=== PATIENT | female | born 1965 | race Caucasian/White ===

== ENCOUNTER 2016-06-24 11:02 | Emergency (ER) | payer OTHER ==
[2016-06-24 11:11] VITALS: PULSE 83
--- NOTE | 2016-06-24 12:04 | ED ---
General Adult HPI - General Chief complaint: Extremity Injury, Lower Stated complaint: leg pain Time Seen by Provider: 06/24/16 11:45 Source: patient Mode of arrival: ambulatory Limitations: no limitations - History of Present Illness Initial comments: 50-year-old female complains of right knee pain. She decided to agree any recent injury. She has a history of torn meniscus underwent arthroscopic surgery 2 years ago and is scheduled in July. She states for the last 4 days has been more swollen no fever no chills or painful to walk on. No numbness in the leg otherwise is treated for hypertension and depression. - Related Data Home Medications Medication Instructions Recorded Confirmed DULoxetine HCL [Cymbalta] 60 mg PO DAILY 09/22/15 01/20/16 Ziprasidone [Geodon] 60 mg PO BID 01/19/16 01/20/16 lamoTRIgine [LaMICtal] 150 mg PO BID 01/19/16 01/20/16 Previous Rx's Medication Instructions Recorded Clopidogrel Bisulfate [Plavix] 75 mg PO DAILY #14 tab 03/31/16 Cyclobenzaprine [Flexeril] 10 mg PO TID #14 tab 03/31/16 Hydrocodone/Acetaminophen [[place] 1 each PO Q6HR PRN #20 tab 03/31/16 5-325] predniSONE 20 mg PO BID #10 tab 03/31/16 HYDROcodone/APAP 5-325MG [[place] 1 each PO Q6HR PRN #12 tab 06/24/16 5-325] predniSONE 10 mg PO DAILY #5 tab 06/24/16 Allergies Allergy/AdvReac Type Severity Reaction Status Date / Time aspirin Allergy SEVERE Verified 06/24/16 11:11 BLOODY NOSE" ibuprofen [From Motrin] Allergy Rash/Hives Verified 06/24/16 11:11 ketorolac tromethamine Allergy Rash/Hives Verified 06/24/16 11:11 [From Toradol] tramadol HCl [From Ultram] Allergy Rash/Hives Verified 06/24/16 11:11 Review of Systems ROS Statement: Those systems with pertinent positive or pertinent negative responses have been documented in the HPI. ROS Other: All systems not noted in ROS Statement are negative. Constitutional: Denies: fever, chills Eyes: Denies: eye pain, eye discharge ENT: Denies: ear pain, throat pain Respiratory: Denies: cough Cardiovascular: Denies: chest pain Gastrointestinal: Denies: abdominal pain, nausea, vomiting, diarrhea Genitourinary: Denies: frequency Skin: Denies: rash Neurological: Denies: headache Psychiatric: Denies: anxiety Hematological/Lymphatic: Denies: easy bleeding, easy bruising Past Medical History Past Medical History: COPD, Liver Disease Additional Past Medical History / Comment(s): hepatitis c History of Any Multi-Drug Resistant Organisms: None Reported Past Surgical History: Section, Orthopedic Surgery, Uterine Ablation Additional Past Surgical History / Comment(s): surgery on left ankle, rt knee surgery Past Anesthesia/Blood Transfusion Reactions: No Reported Reaction Past Psychological History: Anxiety, Bipolar, Depression Smoking Status: Current every day smoker Past Alcohol Use History: Occasional Additional Past Alcohol Use History / Comment(s): smokes 1 PPD for 30 yrs Past Drug Use History: None Reported Additional Drug Use History / Comment(s): past use marijuana(1 month ago last use)last use of opiates 4 months ago, denies prescription drug abuse - Past Family History Mother Family Medical History: No Reported History General Exam Limitations: no limitations General appearance: alert, in no apparent distress Head exam: Present: atraumatic Eye exam: Present: normal appearance ENT exam: Present: normal exam, normal oropharynx, mucous membranes moist, TM's normal bilaterally Respiratory exam: Present: normal lung sounds bilaterally Cardiovascular Exam: Present: regular rate, normal heart sounds GI/Abdominal exam: Present: soft Right Knee exam: Present: tenderness, swelling. Absent: deformity, crepitus, effusion Neurological exam: Present: alert, CN II-XII intact Psychiatric exam: Present: normal affect Skin exam: Present: warm, dry Course Vital Signs 06/24/16 11:09 Temperature 97.8 F Pulse Rate 83 Respiratory 20 Rate Blood Pressure 133/84 O2 Sat by Pulse 99 Oximetry Medical Decision Making - Medical Decision Making There is no evidence of infection. Knee is mildly swollen with no warmth. Appears to be an aggravation of her torn meniscus and degenerative arthritis. She's been x-rayed recently. We'll treat with an anti-inflammatory and short course pain medication. Although she is ALLERGIC to tramadol she has taken hydrocodone in the past. Disposition Clinical Impression: Knee meniscus pain Disposition: HOME SELF-CARE Condition: Good Instructions: Knee Pain (ED) Prescriptions: HYDROcodone/APAP 5-325MG [[place] 5-325] 1 each PO Q6HR PRN #12 tab PRN Reason: Pain predniSONE 10 mg PO DAILY #5 tab Time of Disposition: 12:04
[2016-06-24 12:13] VITALS: BP 137/77; RESP 18; TEMP 97.9
== END 2016-06-24 12:10 | disposition home or self-care (01) ==
LOC: EC 11:02
DX: M25.561 Pain in right knee (principal); R22.41 Localized swelling, mass and lump, right lower limb; F31.9 Bipolar disorder, unspecified; F41.9 Anxiety disorder, unspecified; F17.200 Nicotine dependence, unspecified, uncomplicated; Z79.02 Long term (current) use of antithrombotics/antiplatelets; Z79.899 Other long term (current) drug therapy; Z88.5 Allergy status to narcotic agent; Z88.6 Allergy status to analgesic agent; Z86.19 Personal history of other infectious and parasitic diseases
CPT/HCPCS: 99283

== ENCOUNTER 2016-09-05 17:02 | Emergency (ER) | payer OTHER ==
[2016-09-05 18:11] VITALS: BP 175/81; PULSE 67; RESP 17; TEMP 97.5
--- NOTE | 2016-09-05 18:40 | ED ---
Lower Extremity Injury HPI - General Chief Complaint: Extremity Injury, Lower Stated Complaint: Right Knee Pain Time Seen by Provider: 09/05/16 18:21 Source: patient, RN notes reviewed Mode of arrival: ambulatory Limitations: no limitations - History of Present Illness Initial Comments: 50 yo female presents to the Er with cc of right knee pain. Patient has chronic right knee pain. Patient has been having this pain and has seen Dr. Romo who states that she needs to have a knee replacement. Her next appointment is 2 weeks however he will not refill her pain medication because she has not planned for surgery yet. Patient states she is just here for medications to help her with her pain. Patient states that any fever chills. Patient states her pain is exactly to follow-up then. Patient states she has been wearing her splint.Patient denies any recent fever, chills, shortness of breath, chest pain , back pain, abdominal pain, nausea vomiting, numbness or tingling, dysuria or hematuria, constipation or diarrhea, headaches or visual changes, or any other current symptoms. - Related Data Home Medications Medication Instructions Recorded Confirmed DULoxetine HCL [Cymbalta] 60 mg PO DAILY 09/22/15 09/05/16 Ziprasidone [Geodon] 60 mg PO BID 01/19/16 09/05/16 lamoTRIgine [LaMICtal] 150 mg PO BID 01/19/16 09/05/16 Lisinopril [Zestril] 10 mg PO DAILY 09/05/16 09/05/16 Previous Rx's Medication Instructions Recorded Cyclobenzaprine [Flexeril] 10 mg PO TID #14 tab 03/31/16 Hydrocodone/Acetaminophen [[place] 1 each PO Q6HR PRN #20 tab 03/31/16 5-325] HYDROcodone/APAP 5-325MG [[place] 1 each PO Q6HR PRN #12 tab 06/24/16 5-325] Hydrocodone/Acetaminophen [[place] 1 each PO Q6HR PRN #20 tab 09/05/16 5-325] Allergies Allergy/AdvReac Type Severity Reaction Status Date / Time aspirin Allergy SEVERE Verified 09/05/16 18:11 BLOODY NOSE" ibuprofen [From Motrin] Allergy Rash/Hives Verified 09/05/16 18:11 ketorolac tromethamine Allergy Rash/Hives Verified 09/05/16 18:11 [From Toradol] tramadol HCl [From Ultram] Allergy Rash/Hives Verified 09/05/16 18:11 Review of Systems ROS Statement: Those systems with pertinent positive or pertinent negative responses have been documented in the HPI. ROS Other: All systems not noted in ROS Statement are negative. Past Medical History Past Medical History: COPD, Liver Disease Additional Past Medical History / Comment(s): hepatitis c, CHRONIC PAIN History of Any Multi-Drug Resistant Organisms: None Reported Past Surgical History: Section, Orthopedic Surgery, Uterine Ablation Additional Past Surgical History / Comment(s): surgery on left ankle, rt knee surgery Past Anesthesia/Blood Transfusion Reactions: No Reported Reaction Past Psychological History: Anxiety, Bipolar, Depression Smoking Status: Current every day smoker Past Alcohol Use History: Occasional Additional Past Alcohol Use History / Comment(s): smokes 1 PPD for 30 yrs Past Drug Use History: None Reported Additional Drug Use History / Comment(s): past use marijuana(1 month ago last use)last use of opiates 4 months ago, denies prescription drug abuse - Past Family History Mother Family Medical History: No Reported History General Exam - General Exam Comments Initial Comments: General: The patient is awake and alert, in no distress, and does not appear acutely ill. Neck: The neck is supple, there is no tenderness. Cardiovascular: There is a regular rate and rhythm. No murmur, rub or gallop is appreciated. Respiratory: Lungs are clear to auscultation, respirations are non-labored, breath sounds are equal. No wheezes, stridor, rales, or rhonchi. Musculoskeletal: Sensation intact with 2+ pulses to the right lower extremity. Full range of motion of right ankle right knee and right hip. Patient does have some tenderness patient to the patella. Neurological: CN II-XII intact, There are no obvious motor or sensory deficits. Coordination appears grossly intact. Speech is normal. Skin: Skin is warm and dry and no rashes or lesions are noted. Psychiatric: Normal mood and affect. Limitations: no limitations Course Vital Signs 09/05/16 18:08 Temperature 97.5 F L Pulse Rate 67 Respiratory 17 Rate Blood Pressure 175/81 O2 Sat by Pulse 96 Oximetry Medical Decision Making - Medical Decision Making 50-year-old female presents to emergency room chief complaint of right knee pain. At this time she does have chronic pain. We'll give her a small prescription for pain medication we discussed follow-up with her orthopedic doctor. We discussed return parameters and all the patient's questions. She stated that she understood all her questions have been answered. Distended patient will be discharged home. Disposition Clinical Impression: Chronic pain of right knee Disposition: HOME SELF-CARE Condition: Stable Instructions: Knee Pain (ED) Additional Instructions: Please use medication as discussed. Please follow up with family doctor if symptoms have not improved over the next two days. Please return to the emergency room if your symptoms increase or worsen or for any other concerns. Prescriptions: Hydrocodone/Acetaminophen [[place] 5-325] 1 each PO Q6HR PRN #20 tab PRN Reason: Pain Referrals: Alma Merchant MD [Primary Care Provider] - 1-2 days Time of Disposition: 18:40
== END 2016-09-05 18:49 | disposition home or self-care (01) ==
LOC: EC 17:02
DX: G89.29 Other chronic pain (principal); M25.561 Pain in right knee; F31.9 Bipolar disorder, unspecified; F41.9 Anxiety disorder, unspecified; F17.200 Nicotine dependence, unspecified, uncomplicated; Z79.899 Other long term (current) drug therapy; Z88.6 Allergy status to analgesic agent
CPT/HCPCS: 99283

== ENCOUNTER 2016-09-11 20:42 | Emergency (ER) | payer OTHER ==
[2016-09-11] MEDS ORDERED: SODIUM CHLORIDE 0.9% 500 ML IV STA (20:54)
[2016-09-11 20:58] VITALS: RESP 18
--- NOTE | 2016-09-11 21:06 | ED ---
Overdose HPI - General Chief Complaint: Overdose Stated Complaint: OVERDOSE Time Seen by Provider: 09/11/16 20:46 Source: EMS, RN notes reviewed Mode of arrival: EMS Limitations: no limitations - History of Present Illness Initial Comments: 50 yo female presents to the ER with cc of overdose. Patient states that tonight she wanted to get high so she took heroin. Patient states that since she remembers is waking up in the ambulance. Patient did hit her head on a pop when she fell according to EMS report. She was given Narcan. Patient states this is not attempt to hurt herself she denies any suicidal or homicidal ideation. Patient denies any pain at this time. Patient states that she is feeling better. Patient denies using any other substances besides heroin. Patient denies any recent fever, chills, shortness of breath, chest pain, back pain, abdominal pain, nausea vomiting, numbness or tingling, dysuria or hematuria, constipation or diarrhea, headaches or visual changes, or any other current symptoms. - Related Data Home Medications Medication Instructions Recorded Confirmed DULoxetine HCL [Cymbalta] 60 mg PO DAILY 09/22/15 09/11/16 Ziprasidone [Geodon] 60 mg PO BID 01/19/16 09/11/16 lamoTRIgine [LaMICtal] 150 mg PO DAILY 01/19/16 09/11/16 Hydrocodone/Acetaminophen [[place] 1 tab PO Q6HR PRN 09/11/16 09/11/16 5-325] Valtrex (Unknown Dose) 1 tab PO DAILY 09/11/16 09/11/16 Allergies Allergy/AdvReac Type Severity Reaction Status Date / Time aspirin Allergy SEVERE Verified 09/11/16 21:06 BLOODY NOSE" ibuprofen [From Motrin] Allergy Rash/Hives Verified 09/11/16 21:06 ketorolac tromethamine Allergy Rash/Hives Verified 09/11/16 21:06 [From Toradol] tramadol HCl [From Ultram] Allergy Rash/Hives Verified 09/11/16 21:06 Review of Systems ROS Statement: Those systems with pertinent positive or pertinent negative responses have been documented in the HPI. ROS Other: All systems not noted in ROS Statement are negative. Past Medical History Past Medical History: COPD, Liver Disease Additional Past Medical History / Comment(s): hepatitis c, CHRONIC PAIN History of Any Multi-Drug Resistant Organisms: None Reported Past Surgical History: Section, Orthopedic Surgery, Uterine Ablation Additional Past Surgical History / Comment(s): surgery on left ankle, rt knee surgery Past Anesthesia/Blood Transfusion Reactions: No Reported Reaction Past Psychological History: Anxiety, Bipolar, Depression Smoking Status: Current every day smoker Past Alcohol Use History: Occasional Additional Past Alcohol Use History / Comment(s): smokes 1 PPD for 30 yrs Past Drug Use History: Heroin Additional Drug Use History / Comment(s): past use marijuana(1 month ago last use)last use of opiates 4 months ago, denies prescription drug abuse - Past Family History Mother Family Medical History: No Reported History General Exam - General Exam Comments Initial Comments: General: The patient is awake and alert, in no distress, and does not appear acutely ill. Head: Patient has superficial abrasion to the right side of the cheek. Eye: Pupils are equal, round and reactive to light, extra-ocular movements are intact; there is normal conjunctiva bilaterally. No signs of icterus. Ears, nose, mouth and throat: There are moist mucous membranes and no oral lesions. Neck: The neck is supple, there is no tenderness. Cardiovascular: There is a regular rate and rhythm. No murmur, rub or gallop is appreciated. Respiratory: Lungs are clear to auscultation, respirations are non-labored, breath sounds are equal. No wheezes, stridor, rales, or rhonchi. Gastrointestinal: Soft, non-distended, non-tender abdomen without masses or organomegaly noted. There is no rebound or guarding present. No CVA tenderness. Bowel sounds are unremarkable. Back: There is no tenderness to palpation in the midline. There is no obvious deformity. No rashes noted. Musculoskeletal: Normal ROM, no tenderness, There is no pedal edema. There is no calf tenderness or swelling. Sensation intact. Pulses equal bilaterally 2+. Neurological: CN II-XII intact, There are no obvious motor or sensory deficits. Coordination appears grossly intact. Speech is normal. Skin: Skin is warm and dry and no rashes or lesions are noted. Psychiatric: Cooperative, appropriate mood & affect, normal judgment. Limitations: no limitations Course Vital Signs 09/11/16 20:49 Temperature 97.2 F L Pulse Rate 111 H Respiratory 18 Rate Blood Pressure 151/99 O2 Sat by Pulse 98 Oximetry Medical Decision Making - Medical Decision Making 50-year-old female presents emergency Department chief complaint of heroin accidental overdose and fall. At this time patient's laboratory is reviewed and negative. Patient is alert and oriented the room. This time she'll be discharged home. We did give her education about the patient's abuse. We discussed return parameters and follow-up. Patient stated that she understood all cushions have answered. She will be discharged. - Lab Data Result diagrams: 09/11/16 21:30 09/11/16 21:30 Lab Results 09/11/16 09/11/16 Range/Units 21:30 21:30 WBC 14.4 H (3.8-10.6) k/uL RBC 5.80 H (3.80-5.40) m/uL Hgb 16.9 H (11.4-16.0) gm/dL Hct 52.3 H (34.0-46.0) % MCV 90.1 (80.0-100.0) fL MCH 29.2 (25.0-35.0) pg MCHC 32.4 (31.0-37.0) g/dL RDW 14.2 (11.5-15.5) % Plt Count 247 (150-450) k/uL Neutrophils % 76 % Lymphocytes % 18 % Monocytes % 3 % Eosinophils % 1 % Basophils % 0 % Neutrophils # 10.9 H (1.3-7.7) k/uL Lymphocytes # 2.6 (1.0-4.8) k/uL Monocytes # 0.4 (0-1.0) k/uL Eosinophils # 0.1 (0-0.7) k/uL Basophils # 0.1 (0-0.2) k/uL Manual Slide Review Performed Sodium 141 (137-145) mmol/L Potassium 3.9 (3.5-5.1) mmol/L Chloride 106 (98-107) mmol/L Carbon Dioxide 20 L (22-30) mmol/L Anion Gap 15 mmol/L BUN 9 (7-17) mg/dL Creatinine 0.88 (0.52-1.04) mg/dL Est GFR (MDRD) Af Amer >60 (>60 ml/min/1.73 sqM) Est GFR (MDRD) Non-Af >60 (>60 ml/min/1.73 sqM) Glucose 104 H (74-99) mg/dL Calcium 10.3 H (8.4-10.2) mg/dL Total Bilirubin 0.8 (0.2-1.3) mg/dL AST 107 H (14-36) U/L ALT 89 H (9-52) U/L Alkaline Phosphatase 94 (38-126) U/L Total Protein 9.0 H (6.3-8.2) g/dL Albumin 4.9 (3.5-5.0) g/dL Salicylates <1.0 mg/dL Acetaminophen <10.0 ug/mL Serum Alcohol <10 mg/dL - Radiology Data Radiology results: report reviewed, image reviewed Disposition Clinical Impression: Accidental drug overdose Disposition: HOME SELF-CARE Condition: Stable Instructions: Polysubstance Abuse (ED) Additional Instructions: Please use medication as discussed. Please follow up with family doctor if symptoms have not improved over the next two days. Please return to the emergency room if your symptoms increase or worsen or for any other concerns. Referrals: Alma Merchant MD [Primary Care Provider] - 1-2 days Time of Disposition: 23:07
--- NOTE | 2016-09-11 21:21 | CT ---
EXAMINATION TYPE: CT brain wo con DATE OF EXAM: 09/11/2016 9:15 PM COMPARISON: 03/31/2016 HISTORY: Overdose. CT DLP: 927.4 mGycm Automated exposure control for dose reduction was used. FINDINGS: Ventricles and sulci appear normal. There is no mass effect nor midline shift. There is no sign of in tracranial hemorrhage. The calvarium is intact. IMPRESSION: Normal unenhanced head CT scan. No change.
[2016-09-11 21:42] LABS: Basophils # (A) 0.1 k/uL (0-0.2); Basophils % (A) 0 %; CH 28.7; Eosinophils # (A) 0.1 k/uL (0-0.7); Eosinophils % (A) 1 %; HCT 52.3 % (34.0-46.0); HDW 2.14; HGB 16.9 gm/dL (11.4-16.0); Luc # (Auto) 0.24; Luc % (Auto) 2; Lymphocytes # (A) 2.6 k/uL (1.0-4.8); Lymphocytes % (A) 18 %; MCH 29.2 pg (25.0-35.0); MCHC 32.4 g/dL (31.0-37.0); MCV 90.1 fL (80.0-100.0); Mean Platelet Volume 7.1; Monocytes # (A) 0.4 k/uL (0-1.0); Monocytes % (A) 3 %; Neutrophils # (A) 10.9 k/uL (1.3-7.7); Neutrophils % (A) 76 %; RDW 14.2 % (11.5-15.5); WBC 14.4 k/uL (3.8-10.6); WBC (Perox) 16.09
[2016-09-11 21:53] LABS: ALT 89 U/L (9-52); AST 107 U/L (14-36); Acetaminophen <10.0 ug/mL; Alkaline Phosphatase 94 U/L (38-126); Anion Gap 15 mmol/L; Blood Urea Nitrogen 9 mg/dL (7-17); Calcium 10.3 mg/dL (8.4-10.2); Carbon Dioxide 20 mmol/L (22-30); Chloride 106 mmol/L (98-107); Glucose 104 mg/dL (74-99); Non-African American GFR(MDRD) >60 (>60 ml/min/1.73 sqM); Potassium 3.9 mmol/L (3.5-5.1); Salicylate <1.0 mg/dL; Sodium 141 mmol/L (137-145); Total Bilirubin 0.8 mg/dL (0.2-1.3)
[2016-09-11 21:54] LABS: Alcohol <10 mg/dL
[2016-09-11 22:16] LABS: Manual Review Performed
[2016-09-11 23:24] VITALS: BP 124/81; PULSE 95; TEMP 97
== END 2016-09-11 23:24 | disposition home or self-care (01) ==
LOC: EC 20:42
DX: T40.1X1A Poisoning by heroin, accidental (unintentional), initial encounter (principal); S00.81XA Abrasion of other part of head, initial encounter; F41.9 Anxiety disorder, unspecified; F31.9 Bipolar disorder, unspecified; F17.200 Nicotine dependence, unspecified, uncomplicated; Z79.899 Other long term (current) drug therapy; Z88.6 Allergy status to analgesic agent; W18.00XA Striking against unspecified object with subsequent fall, initial encounter
CPT/HCPCS: 36415; 70450; 80053; 80306; 80320; 83520; 85025; 96360; 99285

== ENCOUNTER 2017-10-07 10:12 | Emergency (ER) | payer OTHER ==
[2017-10-07 10:20] VITALS: BP 149/72; PULSE 85; RESP 17; TEMP 97
--- NOTE | 2017-10-07 11:07 | ED ---
General Adult HPI - General Chief complaint: Dental/Oral Stated complaint: oral infection Time Seen by Provider: 10/07/17 10:29 Source: patient, RN notes reviewed, old records reviewed Mode of arrival: ambulatory Limitations: no limitations - History of Present Illness Initial comments: This is a 51-year-old female the ER for evaluation. Patient states that she feels she has dental infection, information of gums, bad breath, patient does have history of dental disease. Denies any swelling or difficulty swallowing no fevers. No prior treatment, no other complaints - Related Data Home Medications Medication Instructions Recorded Confirmed DULoxetine HCL [Cymbalta] 60 mg PO DAILY 09/22/15 10/07/17 Ziprasidone [Geodon] 60 mg PO BID 01/19/16 10/07/17 lamoTRIgine [LaMICtal] 150 mg PO DAILY 01/19/16 10/07/17 Hydrocodone/Acetaminophen [[place] 1 tab PO Q6HR PRN 09/11/16 10/07/17 5-325] Valtrex (Unknown Dose) 1 tab PO DAILY 09/11/16 10/07/17 Previous Rx's Medication Instructions Recorded Penicillin V Potassium [Pen Vee K] 500 mg PO QID #40 tablet 10/07/17 Allergies Allergy/AdvReac Type Severity Reaction Status Date / Time aspirin Allergy SEVERE Verified 10/07/17 10:17 BLOODY NOSE" ibuprofen [From Motrin] Allergy Rash/Hives Verified 10/07/17 10:17 ketorolac tromethamine Allergy Rash/Hives Verified 10/07/17 10:17 [From Toradol] tramadol HCl [From Ultram] Allergy Rash/Hives Verified 10/07/17 10:17 Review of Systems ROS Statement: Those systems with pertinent positive or pertinent negative responses have been documented in the HPI. ROS Other: All systems not noted in ROS Statement are negative. Past Medical History Past Medical History: COPD, Liver Disease Additional Past Medical History / Comment(s): hepatitis c, CHRONIC PAIN History of Any Multi-Drug Resistant Organisms: None Reported Past Surgical History: Section, Orthopedic Surgery, Uterine Ablation Additional Past Surgical History / Comment(s): surgery on left ankle, rt knee surgery Past Anesthesia/Blood Transfusion Reactions: No Reported Reaction Past Psychological History: Anxiety, Bipolar, Depression Smoking Status: Current every day smoker Past Alcohol Use History: Occasional Past Drug Use History: Heroin - Past Family History Mother Family Medical History: No Reported History General Exam Limitations: no limitations General appearance: alert, in no apparent distress Head exam: Present: atraumatic, normocephalic, normal inspection Eye exam: Present: normal appearance, PERRL, EOMI. Absent: scleral icterus, conjunctival injection, periorbital swelling ENT exam: Present: normal exam, mucous membranes moist, other (Positive dental caries) Neck exam: Present: normal inspection. Absent: tenderness, meningismus, lymphadenopathy Respiratory exam: Present: normal lung sounds bilaterally. Absent: respiratory distress, wheezes, rales, rhonchi, stridor Cardiovascular Exam: Present: regular rate, normal rhythm, normal heart sounds. Absent: systolic murmur, diastolic murmur, rubs, gallop, clicks GI/Abdominal exam: Present: soft, normal bowel sounds. Absent: distended, tenderness, guarding, rebound, rigid Extremities exam: Present: normal inspection, full ROM, normal capillary refill. Absent: tenderness, pedal edema, joint swelling, calf tenderness Back exam: Present: normal inspection Neurological exam: Present: alert, oriented X3, CN II-XII intact Psychiatric exam: Present: normal affect, normal mood Skin exam: Present: warm, dry, intact, normal color. Absent: rash Course Vital Signs 10/07/17 10:17 Temperature 97.0 F L Pulse Rate 85 Respiratory 17 Rate Blood Pressure 149/72 O2 Sat by Pulse 98 Oximetry Medical Decision Making - Medical Decision Making 51 female the ER for evaluation of dental caries, dental disease. Patient has had gingivitis, will place on antibiotics encouraged to increase hydration and tooth care. Patient can be discharged home Disposition Clinical Impression: Gingivitis, Pain, dental Disposition: HOME SELF-CARE Condition: Good Instructions: Gingivitis (ED) Prescriptions: Penicillin V Potassium [Pen Vee K] 500 mg PO QID #40 tablet Is patient prescribed a controlled substance at d/c from ED?: No Referrals: Vero Pat MD [Primary Care Provider] - 1-2 days
== END 2017-10-07 11:15 | disposition home or self-care (01) ==
LOC: EC 10:12
DX: K05.10 Chronic gingivitis, plaque induced (principal); K02.9 Dental caries, unspecified; F31.9 Bipolar disorder, unspecified; F41.9 Anxiety disorder, unspecified; F17.200 Nicotine dependence, unspecified, uncomplicated; Z79.899 Other long term (current) drug therapy; Z88.5 Allergy status to narcotic agent; Z88.6 Allergy status to analgesic agent
CPT/HCPCS: 99283

== ENCOUNTER → 2018-01-28 | Outpatient (CLI) | payer OTHER ==
[2018-01-28 14:20] LABS: Basophils % (A) 1 %; Eosinophils # (A) 0.1 k/uL (0-0.7); Eosinophils % (A) 1 %; HCT 43.2 % (34.0-46.0); HGB 13.6 gm/dL (11.4-16.0); Lymphocytes # (A) 2.8 k/uL (1.0-4.8); Lymphocytes % (A) 38 %; MCH 28.2 pg (25.0-35.0); MCHC 31.5 g/dL (31.0-37.0); MCV 89.5 fL (80.0-100.0); Mean Platelet Volume 6.9; Monocytes # (A) 0.3 k/uL (0-1.0); Monocytes % (A) 4 %; Neutrophils % (A) 55 %; Platelet Count 219 k/uL (150-450); RBC 4.82 m/uL (3.80-5.40); WBC 7.3 k/uL (3.8-10.6)
[2018-01-28 14:34] LABS: ALT 27 U/L (9-52); AST 35 U/L (14-36); Anion Gap 7 mmol/L; Blood Urea Nitrogen 11 mg/dL (7-17); Calcium 9.5 mg/dL (8.4-10.2); Carbon Dioxide 26 mmol/L (22-30); Chloride 108 mmol/L (98-107); Glucose 93 mg/dL (74-99); Sodium 141 mmol/L (137-145)
[2018-01-29 13:45] LABS: Hepatits C Virus RNA Not detected (Not detected); Hepatits C Virus RNA, Quant <12 IU/mL (<12); LOG HCV IU/mL <1.08 (<1.08)
== END | disposition home or self-care (01) ==
LOC: LABWHC1 14:04
PROVIDERS: ATTEND Internal Medicine Infectious Disease
DX: B18.2 Chronic viral hepatitis C (principal)
CPT/HCPCS: 36415; 80048; 84450; 84460; 85025; 87522

== ENCOUNTER 2018-02-03 18:55 | Emergency (ER) | payer OTHER ==
[2018-02-03 19:18] VITALS: RESP 18
[2018-02-03] MEDS ORDERED: DIPH,PERTUS(ACELL)TETVAC-LF 0.5 ML VIAL IM ONE (19:21)
[2018-02-03] MEDS ORDERED: LIDOCAINE 1% INJ 10MG/ML (20 ML MDV) SQ ONE (20:10)
--- NOTE | 2018-02-03 20:19 | XR ---
EXAMINATION TYPE: XR foot limited RT DATE OF EXAM: 02/03/2018 CLINICAL HISTORY: Laceration to third digit. TECHNIQUE: Frontal, lateral, and oblique images of the right foot are obtained. COMPARISON: None FINDINGS: There is no acute fracture/dislocation evident in the right foot. The joint spaces appear within normal limits. The overlying soft tissue appears unremarkable. No radiopaque foreign body. IMPRESSION: There is no acute fracture or dislocation. No radiopaque foreign body.
[2018-02-03] MEDS ORDERED: HYDROcodone/APAP 7.5-325MG 1 EACH TAB PO ONE (20:39)
--- NOTE | 2018-02-03 21:26 | ED ---
Wound/Laceration HPI - General Chief Complaint: Wound/Laceration Stated Complaint: toe lac Time Seen by Provider: 02/03/18 19:21 Source: patient, RN notes reviewed Mode of arrival: wheelchair Limitations: no limitations - History of Present Illness Initial Comments: This is a 52yo female with PMH of hepatitis C who presents today for CC of laceration to the right third toe x few hours. Pt states that she was at home and grabbed a can of spaghetti O's (8oz) from the cupboard, when she dropped it on the tip of her third toe on the right foot. Pt applied a rag and pressure. She ate her spaghetti O's and then presented to the emergency department because she knew she needed sutures. Pt denied numbness, tingling, or loss of sensation. Pt states that her tetanus is not up to date. Patient denies any recent fever, chills, shortness of breath, chest pain, back pain, abdominal pain , nausea or vomiting, numbness or tingling, dysuria or hematuria, constipation or diarrhea, headaches or visual changes, or any other complaints. - Related Data Home Medications Medication Instructions Recorded Confirmed DULoxetine HCL [Cymbalta] 60 mg PO DAILY 09/22/15 10/07/17 Ziprasidone [Geodon] 60 mg PO BID 01/19/16 10/07/17 lamoTRIgine [LaMICtal] 150 mg PO DAILY 01/19/16 10/07/17 Hydrocodone/Acetaminophen [Porter 1 tab PO Q6HR PRN 09/11/16 10/07/17 5-325] Valtrex (Unknown Dose) 1 tab PO DAILY 09/11/16 10/07/17 Previous Rx's Medication Instructions Recorded Penicillin V Potassium [Pen Vee K] 500 mg PO QID #40 tablet 10/07/17 Acetaminophen Tab [Tylenol Tab] 500 mg PO Q6H PRN 7 Days #28 tablet 02/03/18 Cephalexin [Keflex] 500 mg PO Q8HR 7 Days #21 cap 02/03/18 Sulfamethox-Tmp 800-160Mg [Bactrim 1 tab PO Q12HR 7 Days #14 tab 02/03/18 DS 800-160 mg] Allergies Allergy/AdvReac Type Severity Reaction Status Date / Time aspirin Allergy SEVERE Verified 02/03/18 19:19 BLOODY NOSE" ibuprofen [From Motrin] Allergy Rash/Hives Verified 02/03/18 19:19 ketorolac tromethamine Allergy Rash/Hives Verified 02/03/18 19:19 [From Toradol] tramadol HCl [From Ultram] Allergy Rash/Hives Verified 02/03/18 19:19 Review of Systems ROS Statement: Those systems with pertinent positive or pertinent negative responses have been documented in the HPI. ROS Other: All systems not noted in ROS Statement are negative. Constitutional: Denies: fever, chills Eyes: Denies: eye pain ENT: Denies: ear pain, throat pain Respiratory: Denies: cough, dyspnea Cardiovascular: Denies: chest pain, palpitations Gastrointestinal: Denies: abdominal pain, nausea, vomiting Genitourinary: Denies: urgency, dysuria Musculoskeletal: Denies: back pain Skin: Denies: rash, lesions Neurological: Denies: headache, numbness, paresthesias, confusion Past Medical History Past Medical History: COPD, Liver Disease Additional Past Medical History / Comment(s): , hepatitis cCHRONIC PAIN History of Any Multi-Drug Resistant Organisms: None Reported Past Surgical History: Section, Orthopedic Surgery, Uterine Ablation Additional Past Surgical History / Comment(s): surgery on left ankle, rt knee surgery Past Anesthesia/Blood Transfusion Reactions: No Reported Reaction Past Psychological History: Anxiety, Bipolar, Depression Smoking Status: Current every day smoker Past Alcohol Use History: Occasional Past Drug Use History: Heroin - Past Family History Mother Family Medical History: No Reported History General Exam - General Exam Comments Initial Comments: General: The patient is awake and alert, in no distress, and does not appear acutely ill. Eye: Pupils are equal, round and reactive to light, extra-ocular movements are intact. No nystagmus. There is normal conjunctiva bilaterally. No signs of icterus. Ears, nose, mouth and throat: There are moist mucous membranes and no oral lesions. Cardiovascular: There is a regular rate and rhythm. No murmur, rub or gallop is appreciated. Respiratory: Lungs are clear to auscultation, respirations are non-labored, breath sounds are equal. No wheezes, stridor, rales, or rhonchi. Musculoskeletal: Decreased ROM at the DIP joint of the third toe of the right foot. 5/5 strength at the PIP joint, pt was unable to complete strength testing at the DIP joint. Sensation intact of tip of the toes of the feet b/l. +2 DP pulses equal bilaterally 2+. Neurological: A&O x 3. CN II-XII intact, There are no obvious motor or sensory deficits. Coordination appears grossly intact. Speech is normal. Skin: Skin is warm and dry and no rashes. 2cm laceration to the tip of the third toe of the right foot, just prior to the nail bed. No obvious tendon exposure but given depth extensor tendon damage is likely. No exposure of underlying bone evident. Psychiatric: Cooperative, appropriate mood & affect, normal judgment. Limitations: no limitations Course Vital Signs 02/03/18 02/03/18 19:15 21:50 Temperature 98.1 F 98 F Pulse Rate 68 51 L Respiratory 18 18 Rate Blood Pressure 114/65 168/81 O2 Sat by Pulse 97 99 Oximetry Procedures - Laceration Laceration #1 Consent Obtained: verbal consent Time Out Performed: Yes Indication: laceration Site: foot (right third digit) Size (cm): 2 Description: irregular, clean Depth: involves tendon Anesthetic Used: lidocaine 1% Anesthesia Technique: nerve block Amount (mls): 8 Pre-repair: wound explored, irrigated extensively Type of Sutures: nylon Size of Sutures: 5-0 Number of Sutures: 3 Technique: simple, interrupted Patient Tolerated Procedure: well, no complications Medical Decision Making - Medical Decision Making 52 yo female with cc of laceration concerning for tendon injury/ possible fracture. XR obtained due to depth- XR revealed no acute fracture or dislocation noted by radiology. Given depth and examination findings likely extensor tendon injury. Wound was soaked in an iodine/sterile water solution for 5-10 minutes. Digital block performed after iodine cleanse. Irrigated extensively with 1L of sterile water under pressure.Wound explored, no obvious exposure of tendon or bone on exam. Wound was approximated using 3, 5.0 sutures , these were placed by Dr. Bal whom also assessed wound. Pt received Porter 7.5 mg prior to procedure for pain mgmt and a starting dose of bactrim DS and Keflex. At this time we feel pt is stable for discharge with tylenol for pain mgmt as needed, Bactrim DS and Keflex for infection ppx as well as close podiatry and PCP f/u. Pt agreed with plan, pt was given specific instructions for wound care including avoiding pool, lakes, ponds or submerging foot in any form of water during next 7-10 days, as well as keeping the area clean dry, and covered with clean bandage. Pt told to return to the ER in 10 days for suture removal, by both myself and Dr. Bal. Pt stated that she understood, denied any questions at this time. In addition pt was instructed to return to the emergency department for any fever, chills, nightsweats, drainage, increasing pain/tenderness/warmth-pt verbalized understand and was d/c in stable condition. Disposition Clinical Impression: Laceration of toe involving extensor tendon Disposition: HOME SELF-CARE Condition: Good Instructions: Care For Your Stitches (ED), Laceration (ED) Additional Instructions: Please use medication as discussed. Please follow-up with family doctor in the next 2 days for wound check. Please follow-up with podiatry in the next 2-3 days. Please return to emergency room 7-10 days for suture removal, or if the symptoms increase or worsen or for any other concerns, as discussed including drainage, increasing warmth, redness, or tenderness. Prescriptions: Acetaminophen Tab [Tylenol Tab] 500 mg PO Q6H PRN 7 Days #28 tablet PRN Reason: Pain Cephalexin [Keflex] 500 mg PO Q8HR 7 Days #21 cap Sulfamethox-Tmp 800-160Mg [Bactrim DS 800-160 mg] 1 tab PO Q12HR 7 Days #14 tab Is patient prescribed a controlled substance at d/c from ED?: No [facility] - 1-2 days Cristi Freeman DPM [STAFF PHYSICIAN] - 1-2 days Time of Disposition: 21:31
[2018-02-03] MEDS ORDERED: CEPHALEXIN 500 MG CAP PO STA (21:27)
[2018-02-03] MEDS ORDERED: SULFAMETHOX-TMP 800-160MG 1 EACH TAB PO STA (21:27)
[2018-02-03 21:52] VITALS: BP 168/81; PULSE 51; TEMP 98
== END 2018-02-03 21:50 | disposition home or self-care (01) ==
LOC: EC 18:55
DX: S96.121A Laceration of muscle and tendon of long extensor muscle of toe at ankle and foot level, right foot, initial encounter (principal); F41.9 Anxiety disorder, unspecified; F31.9 Bipolar disorder, unspecified; F17.200 Nicotine dependence, unspecified, uncomplicated; Z23 Encounter for immunization; Z98.890 Other specified postprocedural states; Z79.899 Other long term (current) drug therapy; Z88.5 Allergy status to narcotic agent; Z88.6 Allergy status to analgesic agent; W26.8XXA Contact with other sharp object(s), not elsewhere classified, initial encounter
CPT/HCPCS: 73620; 90715; 99283; 12001; 90471; J2001

== ENCOUNTER → 2018-03-18 | Outpatient (CLI) | payer OTHER ==
[2018-03-18 14:53] LABS: ALT 26 U/L (9-52); AST 29 U/L (14-36)
[2018-03-19 14:50] LABS: Hepatits C Virus RNA Not detected (Not detected); Hepatits C Virus RNA, Quant <12 IU/mL (<12); LOG HCV IU/mL <1.08 (<1.08)
== END ==
LOC: LABWHC1 13:30
PROVIDERS: ATTEND Internal Medicine Infectious Disease
DX: B18.2 Chronic viral hepatitis C (principal)
CPT/HCPCS: 36415; 84450; 84460; 87522

== ENCOUNTER 2018-08-01 16:27 | Emergency (ER) | payer OTHER ==
[2018-08-01 16:38] VITALS: RESP 18; TEMP 98.2
--- NOTE | 2018-08-01 17:24 | ED ---
Upper Extremity HPI - General Chief Complaint: Extremity Injury, Upper Stated Complaint: hand & shoulder injury Source: patient Mode of arrival: ambulatory Limitations: no limitations - History of Present Illness Initial Comments: 52 yo female presenting for left index finger laceration. Patient states she slammed her left hand in the department door and had a small laceration to her left index finger, she states she is unsure if it needed suture repair presented for evaluation. Patient states she pulled back so hard in her finger she felt her left shoulder. She denies head or neck injury. Denies loss of consciousness. Patient denies any injury of the lower extremity or back. Patient denies any decreased range of motion left shoulder. She does admit to anterior shoulder pain to palpation and with ROM. Patient denies any numbness, tingling, loss sensation, coolness or pallor of the extremities of the upper or lower extremities. Remaining review of systems negative, patient denies any recent fever, chills, shortness of breath, chest pain, back pain, abdominal pain , nausea or vomiting, numbness or tingling, dysuria or hematuria, constipation or diarrhea, headaches or visual changes, or any other complaints. Pt unsure of last tetanus. - Related Data Home Medications Medication Instructions Recorded Confirmed DULoxetine HCL [Cymbalta] 60 mg PO DAILY 09/22/15 10/07/17 Ziprasidone [Geodon] 60 mg PO BID 01/19/16 10/07/17 lamoTRIgine [LaMICtal] 150 mg PO DAILY 01/19/16 10/07/17 Hydrocodone/Acetaminophen [[place] 1 tab PO Q6HR PRN 09/11/16 10/07/17 5-325] Valtrex (Unknown Dose) 1 tab PO DAILY 09/11/16 10/07/17 Previous Rx's Medication Instructions Recorded Penicillin V Potassium [Pen Vee K] 500 mg PO QID #40 tablet 10/07/17 Acetaminophen Tab [Tylenol Tab] 500 mg PO Q6H PRN 7 Days #28 tablet 02/03/18 Cephalexin [Keflex] 500 mg PO Q8HR 7 Days #21 cap 02/03/18 Sulfamethox-Tmp 800-160Mg [Bactrim 1 tab PO Q12HR 7 Days #14 tab 02/03/18 DS 800-160 mg] Allergies Allergy/AdvReac Type Severity Reaction Status Date / Time aspirin Allergy SEVERE Verified 08/01/18 16:35 BLOODY NOSE" ibuprofen [From Motrin] Allergy Rash/Hives Verified 08/01/18 16:35 ketorolac tromethamine Allergy Rash/Hives Verified 08/01/18 16:35 [From Toradol] tramadol HCl [From Ultram] Allergy Rash/Hives Verified 08/01/18 16:35 Review of Systems ROS Statement: Those systems with pertinent positive or pertinent negative responses have been documented in the HPI. ROS Other: All systems not noted in ROS Statement are negative. Past Medical History Past Medical History: COPD, Liver Disease Additional Past Medical History / Comment(s): , hepatitis cCHRONIC PAIN History of Any Multi-Drug Resistant Organisms: None Reported Past Surgical History: Section, Orthopedic Surgery, Uterine Ablation Additional Past Surgical History / Comment(s): surgery on left ankle, rt knee surgery Past Anesthesia/Blood Transfusion Reactions: No Reported Reaction Past Psychological History: Anxiety, Bipolar, Depression Smoking Status: Current every day smoker Past Alcohol Use History: Occasional Past Drug Use History: Heroin, Marijuana - Past Family History Mother Family Medical History: No Reported History General Exam - General Exam Comments Initial Comments: General: The patient is awake and alert, in no distress, and does not appear acutely ill. Eye: +3 mm pupils are equal, round and reactive to light, extra-ocular movements are intact. No nystagmus. There is normal conjunctiva bilaterally. No signs of icterus. Ears, nose, mouth and throat: There are moist mucous membranes and no oral lesions. Neck: The neck is supple, there is no tenderness or JVD. No midline tenderness to palpation of the cervical spine. Full range of motion of the cervical spine. Cardiovascular: There is a regular rate and rhythm. No murmur, rub or gallop is appreciated. Respiratory: Lungs are clear to auscultation, respirations are non-labored, breath sounds are equal. No wheezes, stridor, rales, or rhonchi. Gastrointestinal: Soft, non-distended, non-tender abdomen without masses or organomegaly noted. There is no rebound or guarding present. Musculoskeletal: Positive action the hands bilaterally there is small soft tissue laceration superficial of the left index figure. No other deformities. No gross deformities of the shoulders. Appear equal length inspection, no contusions or ecchymosis. Strength 5/5 of the MTP DIP and PIP joints of the hands equal comparison bilaterally with isolated joint testing. Full range of motion of the left shoulder equal comparison the right. Patient does admit to anterior discomfort with range of motion of the left shoulder. Anterior pain with palpation of the left shoulder. No patch paresthesia. Sensation of the upper extremities equal comparison bilaterally. Patient is able to make the okay fingers crossed thumbs-up and finger opposition of the right and left hands -ulnar median and radial nerve appear intact.Radial pulses equal bilaterally 2+ . Neurological: A&O x 3. CN II-XII intact, There are no obvious motor or sensory deficits. Coordination appears grossly intact. Speech is normal. Skin: Skin is warm and dry and no rashes or lesions are noted. <1cm laceration superifical of the left index finger. just proximal to the DIP joint. Psychiatric: Cooperative, appropriate mood & affect, normal judgment. Limitations: no limitations Course Vital Signs 08/01/18 08/01/18 16:35 19:05 Temperature 98.2 F Pulse Rate 92 68 Respiratory 18 18 Rate Blood Pressure 160/103 135/84 O2 Sat by Pulse 96 97 Oximetry Medical Decision Making - Medical Decision Making Well-appearing 52-year-old female. Laceration was repaired using exofin as it was superifical in a non high tension area after cleansing with iodine and irrigating thoroughly. X-ray negative for acute osseous process. Normal muscle and range of motion testing of the hands bilaterally no suspicion for tendon injury. X-ray of the shoulder revealed no acute osseous injury. Patient was able to fully range without difficulty. Patient is neurovascularly intact. Tetanus was updated. Patient is not a diabetic. At this time i feel pt is stable for discharge with out patient f/u. Return parameters were discussed at length with patient who verbalizes understanding. Patient discharged. While denies questions at this time. Disposition Clinical Impression: Finger laceration, Shoulder pain Disposition: HOME SELF-CARE Condition: Good Instructions (If sedation given, give patient instructions): Shoulder Sprain ( ED), Skin Adhesive Care (ED) Additional Instructions: Please use medication as discussed. Please follow-up with family doctor in the next 2 days. Please return to emergency room if the symptoms increase or worsen or for any other concerns. Is patient prescribed a controlled substance at d/c from ED?: No [facility] - [facility]-2 days Time of Disposition: 18:51
--- NOTE | 2018-08-01 17:48 | XR ---
Left shoulder 3 views. History pain. Comparison none. FINDINGS: I see no fracture nor dislocation. Joint spaces are normal. There are no pathologic calcifications. IMPRESSION: Negative left shoulder exam.
--- NOTE | 2018-08-01 17:49 | XR ---
Left hand 3 views. History pain. Trauma. Comparison none. FINDINGS: I see no fracture nor dislocation. Metacarpals are intact. Joint spaces are fairly normal. IMPRESSION: Negative left hand exam.
[2018-08-01] MEDS ORDERED: DIPH,PERTUS(ACELL)TETVAC-LF 0.5 ML VIAL IM ONE (17:50)
[2018-08-01] MEDS ORDERED: HYDROcodone/APAP 5-325MG 1 EACH TAB PO STA (18:27)
[2018-08-01] MEDS ORDERED: LIDOCAINE 1% INJ 10MG/ML (20 ML MDV) SQ ONE (18:29)
[2018-08-01] MEDS ORDERED: TOPICAL SKIN ADHESIVE 1 EACH AMP TOPICAL ONE (18:38)
[2018-08-01 19:06] VITALS: BP 135/84; PULSE 68
== END 2018-08-01 19:12 | disposition home or self-care (01) ==
LOC: EC 16:27
DX: S61.211A Laceration without foreign body of left index finger without damage to nail, initial encounter (principal); M25.512 Pain in left shoulder; F31.9 Bipolar disorder, unspecified; F41.9 Anxiety disorder, unspecified; F17.200 Nicotine dependence, unspecified, uncomplicated; Z23 Encounter for immunization; Z86.19 Personal history of other infectious and parasitic diseases; Z79.899 Other long term (current) drug therapy; Z88.5 Allergy status to narcotic agent; Z88.6 Allergy status to analgesic agent; W23.0XXA Caught, crushed, jammed, or pinched between moving objects, initial encounter; W19.XXXA Unspecified fall, initial encounter
CPT/HCPCS: 12001; 90471; 90715; 99283

== ENCOUNTER 2019-05-29 10:29 | Emergency (ER) | payer OTHER ==
[2019-05-29 10:32] VITALS: TEMP 97.7
[2019-05-29] MEDS ORDERED: MORPHINE SULFATE 4 MG/ML SYRINGE IVP STA (11:02)
[2019-05-29] MEDS ORDERED: SODIUM CHLORIDE 0.9% 1,000 ML IV ONE (11:02)
--- NOTE | 2019-05-29 11:15 | ED ---
Headache HPI - General Chief Complaint: Headache Stated Complaint: Headache, back pain Time Seen by Provider: 05/29/19 10:47 Mode of arrival: ambulatory Limitations: no limitations - History of Present Illness Initial Comments: 53-year-old female presenting to the emergency department today for headache patient has history of cervical spine degeneration, headaches, chronic low back pain patient is currently out of her medication of [place] with refill tomorrow. In addition patient has history of cocaine abuse with last use last night. Patient states that she has had headache on and off for the past 2 weeks. She states that has been subsided for the past few days however returned this morning at 8:30 she states it came on gradually and is episodic with a sharp stabbing pain in the left side the head without radiation 01/18. Patient states she recently within the last 3 months had a complete neurological evaluation by her Dr. Orosco-including MRI and from patient description MRA, denies aneursym. Denies sudden onset of RODRIGUEZ, photophobia, or new neck pain, neck stiffness, Patient states she has chronic low back pain that she takes norco for. Patient states she has only had increased low back pain since she ran out yesterday. denies trauma or falls to head or back denies any loss of bowel bladder control urinary retention fever or IV drug us, hx of cancer. Patient denies dizziness, balances changes, speech changes, weakness of the UE, states she has chronic leg leg weakness (from back)without change todaym denies sensation deficits or memory change. On arrival patient appears well. patient also may note that she was diagnosed with hypertension and prescribed verapamil for treatment. She states that today when she took her first dose of verapamil she developed a rash on her chest that has been going away. - Related Data Home Medications Medication Instructions Recorded Confirmed lamoTRIgine [LaMICtal] 150 mg PO BID 01/19/16 05/29/19 Albuterol Sulfate [Ventolin HFA] 1 - 2 puff INHALATION RT-Q6H PRN 05/29/19 05/29/19 Aspirin EC [Ecotrin Low Dose] 81 mg PO DAILY 05/29/19 05/29/19 Hydrocodone/Acetaminophen [[place] 1 tab PO Q8H PRN 05/29/19 05/29/19 10-325] Levofloxacin [Levaquin] 500 mg PO DAILY 05/29/19 05/29/19 Lisinopril 20 mg PO DAILY 05/29/19 05/29/19 Loratadine [Claritin] 10 mg PO DAILY 05/29/19 05/29/19 Verapamil HCl [Verapamil ER] 120 mg PO DAILY 05/29/19 05/29/19 traZODone HCL [Desyrel] 100 mg PO HS PRN 05/29/19 05/29/19 Allergies Allergy/AdvReac Type Severity Reaction Status Date / Time ketorolac tromethamine Allergy Rash/Hives Verified 05/29/19 11:23 [From Toradol] tramadol HCl [From Ultram] Allergy Rash/Hives Verified 05/29/19 11:23 Review of Systems ROS Statement: Those systems with pertinent positive or pertinent negative responses have been documented in the HPI. ROS Other: All systems not noted in ROS Statement are negative. Past Medical History Past Medical History: COPD, Liver Disease Additional Past Medical History / Comment(s): , hepatitis cCHRONIC PAIN History of Any Multi-Drug Resistant Organisms: None Reported Past Surgical History: Section, Orthopedic Surgery, Uterine Ablation Additional Past Surgical History / Comment(s): surgery on left ankle, rt knee surgery Past Anesthesia/Blood Transfusion Reactions: No Reported Reaction Past Psychological History: Anxiety, Bipolar, Depression Smoking Status: Current every day smoker Past Alcohol Use History: Occasional Past Drug Use History: Heroin, Marijuana - Past Family History Mother Family Medical History: No Reported History General Exam - General Exam Comments Initial Comments: General: The patient is awake and alert, in no distress, and does not appear acutely ill. Eye: +3 mm pupils are equal, round and reactive to light, extra-ocular movements are intact. No nystagmus. There is normal conjunctiva bilaterally. No signs of icterus. Ears, nose, mouth and throat: There are moist mucous membranes and no oral lesions. Neck: The neck is supple, there is no tenderness or JVD. Cardiovascular: There is a regular rate and rhythm. No murmur, rub or gallop is appreciated. Respiratory: Lungs are clear to auscultation, respirations are non-labored, breath sounds are equal. No wheezes, stridor, rales, or rhonchi. Musculoskeletal: normal inspection of cervicothoracic and lumbar spine. No midline tenderness to palpation however there is right low paravertebral lumbar tenderness. No skin changes.Normal ROM, no tenderness. Strength 5/5. Sensation intact. Pulses equal bilaterally 2+. Neurological: A&O x 3. CN II-XII intact, memory intact to immediately, intermediate and correction recall. Able to follow simple verbal. Able to name a common object (pen). High quality, labial (pa) and lingual (la) speech. Low quality posterior pharynx/larynx (ga) voice sounds. Able to express general k nowledge (days in a week). No hemineglect or inattention noted. Finger agnosia (-) and spatially oriented. Light touch and temperature sensation present over the face, chest, abdomen, back, UE bilaterally, and LE bilaterally. Able to localize point during point localization b/l and extinction. No visible bulk atrophy, hypertrophy, fasciculations, or myoclonus of the UE or LE b/l. Full PROM in UE and LE b/l. Bilateral muscle strength 5/5 for the following muscles: deltoid, biceps, triceps, brachioradialis, wrist extensors/flexor, hip flexor, hip abductors/adductors, hamstrings, quadriceps, feet dorsiflexors/plantar flexors. Finger to nose, finger to the examiners finger, and heel to arizmendi coordinated and accurate b/l. Coordinated and even demonstration of hand flip, finger to thumb, and toe tap b/l. Gait is coordinated and even in stride with tandem, toe and heel walk. Maintains balance with monopedal stance. (-) Romberg. (-) pronator drift. No nuchal rigidity. Skin: Skin is warm and dry and no rashes or lesions are noted. Psychiatric: Cooperative, appropriate mood & affect, normal judgment. Limitations: no limitations Course Vital Signs 05/29/19 05/29/19 10:30 12:01 Temperature 97.7 F Pulse Rate 89 75 Respiratory 20 16 Rate Blood Pressure 174/105 145/85 O2 Sat by Pulse 97 98 Oximetry Medical Decision Making - Medical Decision Making very well-appearing 53 female presenting for multiple complaints (main being RODRIGUEZ). no focal neurological deficits onset denies sudden onset of headache this being the worst headache of her life. No neck pain. patient is no midline lumbar pain right-sided paravertebral. No signs of cauda equina. Patient is afebrile well-appearing does not appear in distress. Patient is currently out of pain medications and does abuse cocaine. Denies any chest pain shortness of breath. Patient's CT revealed no change. Patient's symptoms controlled to 1 dose of IV medication. Patient given IV fluids instructed to discontinue use of cocaine as well as verapamil given history of rash after use. Patient is to call prescriber of HTN medication today for new prescription. Patient BP within acceptable limits after pain control. Patient case discussed with attending who is agreeable with outpatient neurological evaluation and f/u. Disposition Clinical Impression: Headache, Cocaine abuse, Chronic low back pain Disposition: HOME SELF-CARE Condition: Good Instructions (If sedation given, give patient instructions): Cocaine Abuse (ED), Acute Headache (ED) Additional Instructions: Please use medication as discussed. Please follow-up with neurologist in the next 1-2 days. Call today to speak with them in regards to visit today--including reaction to verapamil (discontinue medication-but will need new blood pressure medication). Please stop use of cocaine, take prescribed medications as directed. Please return to emergency room if the symptoms increase or worsen or for any other concerns-worsening RODRIGUEZ, return of RODRIGUEZ. Is patient prescribed a controlled substance at d/c from ED?: No [facility] [Primary Care Provider] - 1-2 days Vira Orosco MD [Medical Doctor] - 1-2 days Time of Disposition: 11:59
--- NOTE | 2019-05-29 11:21 | CT ---
EXAMINATION TYPE: CT brain wo con DATE OF EXAM: 05/29/2019 HISTORY: Headache. Sharp stabbing acute onset. CT DLP: 1082.4 mGycm. Automated Exposure Control for Dose Reduction was Utilized. TECHNIQUE: CT scan of the head is performed without contrast. COMPARISON: Prior CT brain September 11, 2016. FINDINGS: There is no acute intracranial hemorrhage or midline shift identified. Samson-white matter differentiation is maintained. Mild bilateral symmetric frontal lobe atrophy there is redemonstrated. No hydrocephalus. Persistent slight low-lying cerebellar tonsils without greater than 5 mm inferior descent to suggest Chiari type I malformation. The globes are intact and the visualized sinuses are c lear. IMPRESSION: No acute intracranial hemorrhage or midline shift. No significant change from prior stud y.
[2019-05-29] MEDS ORDERED: ACET/COD 300 MG/30 MG STARTER PACK 6 TAB BTL PO STA (12:00)
[2019-05-29 12:02] VITALS: BP 145/85; PULSE 75; RESP 16
== END 2019-05-29 12:09 | disposition home or self-care (01) ==
LOC: EC 10:29
DX: F14.10 Cocaine abuse, uncomplicated (principal); G89.29 Other chronic pain; M54.5 Low back pain; R51 Headache; J44.9 Chronic obstructive pulmonary disease, unspecified; F41.9 Anxiety disorder, unspecified; F31.9 Bipolar disorder, unspecified; F17.200 Nicotine dependence, unspecified, uncomplicated; Z79.82 Long term (current) use of aspirin; Z79.899 Other long term (current) drug therapy; Z88.5 Allergy status to narcotic agent; Z88.6 Allergy status to analgesic agent
CPT/HCPCS: 70450; 96361; 96374; 99284

== ENCOUNTER 2019-07-01 15:46 | Emergency (ER) | payer OTHER ==
[2019-07-01 16:34] LABS: Amphetamine Screen,Urine Not Detected (NotDetected); Barbiturate Screen,Urine Not Detected (NotDetected); Benzodiazepines Screen,Urine Not Detected (NotDetected); Cocaine Screen,Urine Detected (NotDetected); Methadone Screen, Urine Not Detected (NotDetected); Opiate Screen,Urine Detected (NotDetected); Oxycodone Screen, Urine Not Detected (NotDetected); Phencyclidine Screen,Urine Not Detected (NotDetected); Tricyclic Antidepressant,Urine Not Detected (NotDetected); Urn Cannabinoid Scrn Detected (NotDetected)
--- NOTE | 2019-07-01 16:50 | ED ---
General Adult HPI - General Chief complaint: Psychiatric Symptoms Stated complaint: Mental Health Time Seen by Provider: 07/01/19 16:23 Source: patient, RN notes reviewed Mode of arrival: ambulatory Limitations: no limitations - History of Present Illness Initial comments: Patient is a pleasant 53-year-old female presenting to the emergency Department with depression and suicidal thoughts. Patient states she has been more depressed the past few days and also feels paranoid. Patient amiss to having thoughts of self-harm. Patient states she took one extra of her Lyrica yesterday. Patient states she went to [facility] who thought she may need to be admitted and advised her to come here. No homicidal thoughts. No hallucinations. - Related Data Home Medications Medication Instructions Recorded Confirmed lamoTRIgine [LaMICtal] 150 mg PO BID 01/19/16 07/01/19 Albuterol Sulfate [Ventolin HFA] 1 - 2 puff INHALATION RT-Q6H PRN 05/29/19 07/01/19 Aspirin EC [Ecotrin Low Dose] 81 mg PO DAILY 05/29/19 07/01/19 Hydrocodone/Acetaminophen [[place] 1 tab PO Q8H PRN 05/29/19 07/01/19 10-325] Lisinopril 20 mg PO DAILY 05/29/19 07/01/19 Loratadine [Claritin] 10 mg PO DAILY PRN 05/29/19 07/01/19 traZODone HCL [Desyrel] 100 mg PO HS PRN 05/29/19 07/01/19 Acetaminophen [Tylenol] 1,000 mg PO Q6H PRN 07/01/19 07/01/19 Cholecalciferol [Vitamin D3 (25 5,000 unit PO DAILY 07/01/19 07/01/19 Mcg = 1000 Iu)] DULoxetine HCL [Cymbalta] 90 mg PO DAILY 07/01/19 07/01/19 Meloxicam 15 mg PO DAILY 07/01/19 07/01/19 Ziprasidone [Geodon] 20 mg PO BID-W/MEALS 07/01/19 07/01/19 Allergies Allergy/AdvReac Type Severity Reaction Status Date / Time ketorolac tromethamine Allergy Rash/Hives Verified 07/01/19 17:39 [From Toradol] tramadol HCl [From Ultram] Allergy Rash/Hives Verified 07/01/19 17:39 Review of Systems ROS Statement: Those systems with pertinent positive or pertinent negative responses have been documented in the HPI. ROS Other: All systems not noted in ROS Statement are negative. Constitutional: Denies: fever Eyes: Denies: eye pain ENT: Denies: ear pain Respiratory: Denies: cough Cardiovascular: Denies: chest pain Endocrine: Denies: fatigue Gastrointestinal: Denies: abdominal pain Genitourinary: Denies: dysuria Musculoskeletal: Reports: arthralgia (Chronic right knee pain) Skin: Denies: lesions Neurological: Denies: weakness Psychiatric: Reports: depression, suicidal thoughts Past Medical History Past Medical History: COPD, Liver Disease Additional Past Medical History / Comment(s): , hepatitis cCHRONIC PAIN History of Any Multi-Drug Resistant Organisms: None Reported Past Surgical History: Section, Orthopedic Surgery, Uterine Ablation Additional Past Surgical History / Comment(s): surgery on left ankle, rt knee s urgery Past Anesthesia/Blood Transfusion Reactions: No Reported Reaction Past Psychological History: Anxiety, Bipolar, Depression Smoking Status: Current every day smoker Past Alcohol Use History: Occasional Past Drug Use History: Heroin, Marijuana - Past Family History Mother Family Medical History: No Reported History General Exam Limitations: no limitations General appearance: alert, in no apparent distress Head exam: Present: normocephalic Eye exam: Present: normal appearance Respiratory exam: Present: normal lung sounds bilaterally Cardiovascular Exam: Present: regular rate, normal rhythm GI/Abdominal exam: Present: soft. Absent: tenderness Extremities exam: Present: normal inspection. Absent: calf tenderness Neurological exam: Present: alert Psychiatric exam: Present: normal affect, normal mood Skin exam: Present: normal color Course Vital Signs 07/01/19 15:50 Temperature 97.9 F Pulse Rate 101 H Respiratory 20 Rate Blood Pressure 181/82 O2 Sat by Pulse 98 Oximetry Medical Decision Making - Medical Decision Making Patient seen by mental services with plan for transfer or admission. Positive clinical certificate completed. - Lab Data Lab Results 07/01/19 Range/Units Unknown Urine Opiates Screen Detected H (NotDetected) Ur Oxycodone Screen Not Detected (NotDetected) Urine Methadone Screen Not Detected (NotDetected) Ur Propoxyphene Screen Not Detected (NotDetected) Ur Barbiturates Screen Not Detected (NotDetected) U Tricyclic Antidepress Not Detected (NotDetected) Ur Phencyclidine Scrn Not Detected (NotDetected) Ur Amphetamines Screen Not Detected (NotDetected) U Methamphetamines Scrn Not Detected (NotDetected) U Benzodiazepines Scrn Not Detected (NotDetected) Urine Cocaine Screen Detected H (NotDetected) U Marijuana (THC) Screen Detected H (NotDetected) Disposition Clinical Impression: Depression, Suicidal ideation Disposition: TRANSFER TO PSYCH HOSP/UNIT Is patient prescribed a controlled substance at d/c from ED?: No Referrals: [facility] [Primary Care Provider] - 1-2 days Decision Time: 20:01
[2019-07-01] MEDS ORDERED: NICOTINE 14MG/24HR PATCH TRANSDERM STA (19:53)
[2019-07-01] MEDS ORDERED: ACETAMINOPHEN TAB 500 MG TAB PO STA (20:00)
[2019-07-01 20:47] LABS: Basophils # (A) 0.1 k/uL (0-0.2); Basophils % (A) 1 %; Eosinophils # (A) 0.2 k/uL (0-0.7); Eosinophils % (A) 2 %; HCT 37.6 % (34.0-46.0); HGB 11.9 gm/dL (11.4-16.0); Lymphocytes # (A) 3.8 k/uL (1.0-4.8); Lymphocytes % (A) 42 %; MCH 27.9 pg (25.0-35.0); MCHC 31.7 g/dL (31.0-37.0); MCV 87.8 fL (80.0-100.0); Mean Platelet Volume 7.3; Monocytes # (A) 0.5 k/uL (0-1.0); Monocytes % (A) 5 %; Neutrophils # (A) 4.2 k/uL (1.3-7.7); Neutrophils % (A) 47 %; Platelet Count 258 k/uL (150-450); RBC 4.28 m/uL (3.80-5.40); RDW 13.5 % (11.5-15.5); WBC 8.9 k/uL (3.8-10.6)
[2019-07-01 20:59] LABS: Appearance,Urine Clear (Clear); Bilirubin,Urine Negative (Negative); Blood,Urine Negative (Negative); Color,Urine Light Yellow; Glucose,Urine (UA) Negative (Negative); Ketones,Urine Negative (Negative); Leukocyte Esterase,Urine Negative (Negative); Nitrite,Urine Negative (Negative); PH, Urine 5.5 (5.0-8.0); Protein,Urine Negative (Negative); Specific Gravity,Urine 1.007 (1.001-1.035); Urobilinogen,Urine <2.0 mg/dL (<2.0)
[2019-07-01 21:00] LABS: Calcium 9.1 mg/dL (8.4-10.2); Potassium 3.6 mmol/L (3.5-5.1)
[2019-07-02] MEDS ORDERED: ACETAMINOPHEN TAB 500 MG TAB PO PRN (00:30)
[2019-07-02 07:10] VITALS: BP 157/98; PULSE 62; RESP 18; TEMP 98
== END 2019-07-02 08:50 ==
LOC: EC 15:46
DX: F32.9 Major depressive disorder, single episode, unspecified (principal); R45.851 Suicidal ideations; J44.9 Chronic obstructive pulmonary disease, unspecified; F17.200 Nicotine dependence, unspecified, uncomplicated; Z79.82 Long term (current) use of aspirin; Z79.899 Other long term (current) drug therapy; Z88.5 Allergy status to narcotic agent; Z88.6 Allergy status to analgesic agent
CPT/HCPCS: 82075; 36415; 80048; 85025; 81003; 80306; 99285; S4990

== ENCOUNTER 2019-07-26 11:19 | Emergency (ER) | payer OTHER ==
--- NOTE | 2019-07-26 12:14 | ED ---
Lower Extremity Injury HPI - General Chief Complaint: Extremity Injury, Lower Stated Complaint: Right Leg Numbness Time Seen by Provider: 07/26/19 11:36 Source: patient, RN notes reviewed Mode of arrival: ambulatory Limitations: no limitations - History of Present Illness Initial Comments: This is a 53-year-old female presents emergency Department chief complaint of right leg pain, swelling. Patient states started last 24 hours. Patient states that she's had a prior partial right knee replacement. Patient denies any trauma. Patient states that the pain radiates from her hip all it down. Patient denies any back pain at this time but she has dealt with sciatica in the past. - Related Data Home Medications Medication Instructions Recorded Confirmed lamoTRIgine [LaMICtal] 150 mg PO BID 01/19/16 07/01/19 Albuterol Sulfate [Ventolin HFA] 1 - 2 puff INHALATION RT-Q6H PRN 05/29/19 07/01/19 Aspirin EC [Ecotrin Low Dose] 81 mg PO DAILY 05/29/19 07/01/19 Hydrocodone/Acetaminophen [[place] 1 tab PO Q8H PRN 05/29/19 07/01/19 10-325] Lisinopril 20 mg PO DAILY 05/29/19 07/01/19 Loratadine [Claritin] 10 mg PO DAILY PRN 05/29/19 07/01/19 traZODone HCL [Desyrel] 100 mg PO HS PRN 05/29/19 07/01/19 Acetaminophen [Tylenol] 1,000 mg PO Q6H PRN 07/01/19 07/01/19 Cholecalciferol [Vitamin D3 (25 5,000 unit PO DAILY 07/01/19 07/01/19 Mcg = 1000 Iu)] DULoxetine HCL [Cymbalta] 90 mg PO DAILY 07/01/19 07/01/19 Meloxicam 15 mg PO DAILY 07/01/19 07/01/19 Ziprasidone [Geodon] 20 mg PO BID-W/MEALS 07/01/19 07/01/19 Allergies Allergy/AdvReac Type Severity Reaction Status Date / Time ketorolac tromethamine Allergy Rash/Hives Verified 07/26/19 11:25 [From Toradol] tramadol HCl [From Ultram] Allergy Rash/Hives Verified 02/15/20 11:25 Review of Systems ROS Statement: Those systems with pertinent positive or pertinent negative responses have been documented in the HPI. ROS Other: All systems not noted in ROS Statement are negative. Past Medical History Past Medical History: COPD, Liver Disease Additional Past Medical History / Comment(s): , hepatitis cCHRONIC PAIN History of Any Multi-Drug Resistant Organisms: None Reported Past Surgical History: Section, Orthopedic Surgery, Uterine Ablation Additional Past Surgical History / Comment(s): surgery on left ankle, rt knee surgery Past Anesthesia/Blood Transfusion Reactions: No Reported Reaction Past Psychological History: Anxiety, Bipolar, Depression Smoking Status: Current every day smoker Past Alcohol Use History: Occasional Past Drug Use History: Heroin, Marijuana - Past Family History Mother Family Medical History: No Reported History General Exam Limitations: no limitations General appearance: alert, in no apparent distress Head exam: Present: atraumatic, normocephalic, normal inspection Respiratory exam: Present: normal lung sounds bilaterally. Absent: respiratory distress, wheezes, rales, rhonchi, stridor Cardiovascular Exam: Present: regular rate, normal rhythm, normal heart sounds. Absent: systolic murmur, diastolic murmur, rubs, gallop, clicks Extremities exam: Present: other (Right leg there is swelling noted diffusely, diffuse tenderness with pulses that are equal bilaterally equal color equal warmth) Skin exam: Present: warm, dry, intact, normal color. Absent: rash Course Vital Signs 07/26/19 11:23 Temperature 98.5 F Pulse Rate 96 Respiratory 20 Rate Blood Pressure 160/96 O2 Sat by Pulse 97 Oximetry Medical Decision Making - Medical Decision Making Ultrasound OF THE RIGHT LEG IS UNREMARKABLE. PATIENT IS NEUROVASCULARLY INTACT WITH EQUAL PULSES BILATERALLY. THIS MAY BE EXACERBATION FROM HER RIGHT prior right knee replacement. Patient we discharged in stable condition return parameters were discussed. Disposition Clinical Impression: Pain of right leg Disposition: HOME SELF-CARE Condition: Stable Instructions (If sedation given, give patient instructions): Leg Pain (ED) Additional Instructions: Please return to the Emergency Department if symptoms worsen or any other concerns. Is patient prescribed a controlled substance at d/c from ED?: No [facility] - 1-2 days Time of Disposition: 12:46
--- NOTE | 2019-07-26 12:43 | US ---
EXAMINATION TYPE: US venous doppler duplex LE RT DATE OF EXAM: 07/26/2019 12:27 PM COMPARISON: NONE CLINICAL HISTORY: pain. Right leg pain, numbness and swelling x 1 day, edema, history of right knee s urgery SIDE PERFORMED: Right TECHNIQUE: The lower extremity deep venous system is examined utilizing real time linear array sonog esthela with graded compression, doppler sonography and color-flow sonography. VESSELS IMAGED: External Iliac Vein (EIV) Common Femoral Vein Deep Femoral Vein Greater Saphenous Vein * Femoral Vein Popliteal Vein Small Saphenous Vein * Proximal Calf Veins (* superficial vessels) Right Leg: Appears negative for DVT No popliteal fossa lesion is seen. IMPRESSION: THIS EXAMINATION IS NEGATIVE FOR DVT WITHIN THE RIGHT LEG.
[2019-07-26 13:05] VITALS: BP 90/65; PULSE 81; RESP 18; TEMP 98.7
== END 2019-07-26 13:05 | disposition home or self-care (01) ==
LOC: EC 11:19
DX: M79.604 Pain in right leg (principal); M79.89 Other specified soft tissue disorders; F41.9 Anxiety disorder, unspecified; F31.9 Bipolar disorder, unspecified; J44.9 Chronic obstructive pulmonary disease, unspecified; B18.2 Chronic viral hepatitis C; F17.200 Nicotine dependence, unspecified, uncomplicated; Z79.51 Long term (current) use of inhaled steroids; Z79.1 Long term (current) use of non-steroidal anti-inflammatories (NSAID); Z79.82 Long term (current) use of aspirin; Z79.899 Other long term (current) drug therapy; Z88.6 Allergy status to analgesic agent; Z96.651 Presence of right artificial knee joint
CPT/HCPCS: 99284

== ENCOUNTER → 2020-07-30 | Outpatient (CLI) | payer OTHER ==
[2020-07-30 19:24] LABS: Basophils # (A) 0.03 X 10*3/uL (0.00-0.10); Basophils % (A) 0.5 %; Eosinophils # (A) 0.05 X 10*3/uL (0.04-0.35); Eosinophils % (A) 0.8 %; HCT 35.7 % (37.2-46.3); HGB 11.3 g/dL (12.0-15.0); Lymphocytes # (A) 2.13 X 10*3/uL (0.90-5.00); Lymphocytes % (A) 35.1 %; MCH 27.9 pg (27.0-32.0); MCHC 31.7 g/dL (32.0-37.0); MCV 88.1 fL (80.0-97.0); Mean Platelet Volume 10.8 fL (9.5-12.2); Monocytes # (A) 0.47 X 10*3/uL (0.20-1.00); Monocytes % (A) 7.7 %; Neutrophils # (A) 3.38 X 10*3/uL (1.80-7.70); Neutrophils % (A) 55.7 %; Platelet Count 186 X 10*3/uL (140-440); RBC 4.05 X 10*6/uL (4.10-5.20); RDW 13.8 % (11.5-14.5); WBC 6.07 X 10*3/uL (4.50-10.00)
[2020-07-30 19:57] LABS: African American GFR (CKD) 97.6 (60.0-200.0); Albumin 4.4 g/dL (3.80-4.90); Albumin/Globulin Ratio 1.91 (1.60-3.17); Anion Gap 1.9 mmol/L (4.00-12.00); BUN/Creat Ratio 11.25 Ratio (12.00-20.00); Calcium 9.1 mg/dL (8.7-10.3); Carbon Dioxide 32.1 mmol/L (21.6-31.8); Chol/HDL Ratio 2.03; Globulin 2.3 g/dL (1.6-3.3); LDL Cholesterol,Calculated 70.4 mg/dL (0.0-131.0); Non-African American GFR(CKD) 84.2 (60.0-200.0); Potassium 5.1 mmol/L (3.5-5.5); Total Bilirubin 0.2 mg/dL (0.3-1.2); Total Protein 6.7 g/dL (6.2-8.2); VLDL Calculation 10.6 mg/dL (5.00-40.00)
== END | disposition home or self-care (01) ==
LOC: LABWHC1 13:56
PROVIDERS: ATTEND Nurse Practitioner Acute Care
DX: Z51.81 Encounter for therapeutic drug level monitoring (principal); Z79.899 Other long term (current) drug therapy; E78.5 Hyperlipidemia, unspecified; R51.9 Headache, unspecified; E55.9 Vitamin D deficiency, unspecified
CPT/HCPCS: 36415; 80053; 80061; 82306; 85025

== ENCOUNTER 2021-01-25 17:05 | Emergency (ER) | payer OTHER ==
[2021-01-25 17:32] VITALS: BP 114/74; PULSE 71; RESP 20; TEMP 98.4
[2021-01-25 19:13] LABS: INR 0.9 (<1.2); Partial Thromboplastin Time 25.5 sec (22.0-30.0); Prothrombin Time 10.1 sec (9.0-12.0)
[2021-01-25 19:17] LABS: HCT 34.8 % (34.0-46.0); HGB 11.7 gm/dL (11.4-16.0); MCH 29.2 pg (25.0-35.0); MCHC 33.5 g/dL (31.0-37.0); MCV 87.3 fL (80.0-100.0); Platelet Count 156 k/uL (150-450); RBC 3.99 m/uL (3.80-5.40); RDW 14.4 % (11.5-15.5); WBC 3.7 k/uL (3.8-10.6)
--- NOTE | 2021-01-25 19:17 | XR ---
EXAMINATION TYPE: XR chest 2V DATE OF EXAM: 01/25/2021 COMPARISON: NONE HISTORY: Difficulty breathing TECHNIQUE: 2 views FINDINGS: Heart and mediastinum are normal. Lungs are clear. Diaphragm is normal. Bony thorax is inta ct. IMPRESSION: Normal chest. No change.
--- NOTE | 2021-01-25 19:19 | ED ---
General Adult HPI - General Chief complaint: Extremity Problem,Nontraumatic Stated complaint: Swelling/Pain in Legs Time Seen by Provider: 01/25/21 18:33 Source: patient, RN notes reviewed, old records reviewed Mode of arrival: ambulatory Limitations: no limitations - History of Present Illness Initial comments: 55-year-old female presenting for evaluation of lower extremity swelling. Patient has been camping over the past week. She was seen at urgent care for leg swelling which is worse on the right and was instructed to present to the emergency department for evaluation of congestive heart failure concerns. She has no previous history. She does have COPD and has some mild dyspnea. She is a current smoker. No previous CAD or history of CHF. She had a right knee surgery and does develop increased swelling on the right compared to the left. No history of DVT or PE. No abdominal pain nausea vomiting. No fever. - Related Data Home Medications Medication Instructions Recorded Confirmed lamoTRIgine [LaMICtal] 150 mg PO BID 01/19/16 07/01/19 Albuterol Sulfate [Ventolin HFA] 1 - 2 puff INHALATION RT-Q6H PRN 05/29/19 07/01/19 Aspirin EC [Ecotrin Low Dose] 81 mg PO DAILY 05/29/19 07/01/19 Hydrocodone/Acetaminophen [[place] 1 tab PO Q8H PRN 05/29/19 07/01/19 10-325] Loratadine [Claritin] 10 mg PO DAILY PRN 05/29/19 07/01/19 lisinopriL 20 mg PO DAILY 05/29/19 07/01/19 traZODone HCL [Desyrel] 100 mg PO HS PRN 05/29/19 07/01/19 Acetaminophen [Tylenol] 1,000 mg PO Q6H PRN 07/01/19 07/01/19 Cholecalciferol [Vitamin D3 (25 5,000 unit PO DAILY 07/01/19 07/01/19 Mcg = 1000 Iu)] DULoxetine HCL [Cymbalta] 90 mg PO DAILY 07/01/19 07/01/19 Meloxicam 15 mg PO DAILY 07/01/19 07/01/19 Ziprasidone [Geodon] 20 mg PO BID-W/MEALS 07/01/19 07/01/19 Previous Rx's Medication Instructions Recorded Ibuprofen [Motrin] 600 mg PO Q8HR PRN #30 tab 07/26/19 Allergies Allergy/AdvReac Type Severity Reaction Status Date / Time ketorolac tromethamine Allergy Rash/Hives Verified 01/25/21 17:32 [From Toradol] tramadol HCl [From Ultram] Allergy Rash/Hives Verified 01/25/21 17:32 Review of Systems ROS Statement: Those systems with pertinent positive or pertinent negative responses have been documented in the HPI. ROS Other: All systems not noted in ROS Statement are negative. Past Medical History Past Medical History: COPD, Liver Disease Additional Past Medical History / Comment(s): , hepatitis cCHRONIC PAIN History of Any Multi-Drug Resistant Organisms: None Reported Past Surgical History: Section, Orthopedic Surgery, Uterine Ablation Additional Past Surgical History / Comment(s): surgery on left ankle, rt knee surgery Past Anesthesia/Blood Transfusion Reactions: No Reported Reaction Past Psychological History: Anxiety, Bipolar, Depression Smoking Status: Current every day smoker Past Alcohol Use History: Occasional Past Drug Use History: Heroin, Marijuana - Past Family History Mother Family Medical History: No Reported History General Exam Limitations: no limitations General appearance: alert, in no apparent distress Head exam: Present: atraumatic, normocephalic Eye exam: Present: normal appearance, PERRL ENT exam: Present: normal exam Neck exam: Present: normal inspection. Absent: tenderness, meningismus Respiratory exam: Present: wheezes. Absent: respiratory distress Cardiovascular Exam: Present: regular rate, normal rhythm GI/Abdominal exam: Present: soft. Absent: distended, tenderness, guarding, rebound Extremities exam: Present: pedal edema (Bilateral but worse on the right) Neurological exam: Present: alert, oriented X3, CN II-XII intact. Absent: motor sensory deficit Psychiatric exam: Present: normal affect, normal mood Skin exam: Present: warm, dry, intact. Absent: cyanosis, diaphoretic Course Vital Signs 01/25/21 17:29 Temperature 98.4 F Pulse Rate 71 Respiratory 20 Rate Blood Pressure 114/74 O2 Sat by Pulse 97 Oximetry EKG Findings - EKG Comments: EKG Findings:: EKG: Sinus bradycardia first-degree AV block, no ST segment elevation, low voltage, rate of 59, OK interval 212, QRS duration 76, QTC 439 Medical Decision Making - Medical Decision Making 55-year-old female with lower tremor swelling, concern for congestive heart failure. EKG is sinus rhythm. Chest x-ray is clear. Laboratory testing is overall unremarkable, mild leukopenia white blood cell count 3.7. She has a stable hemoglobin, normal white lites, negative troponin, BNP is 850. Ultrasound was performed of the right lower extremity to rule out DVT as it was some mild increase in swelling in this extremity compared to the other. There is mild pitting edema bilaterally. Patient reassured. She will follow with her primary care physician. Return parameters discussed. - Lab Data Result diagrams: 01/25/21 18:45 01/25/21 18:45 Lab Results 01/25/21 01/25/21 01/25/21 Range/Units 18:45 18:45 18:45 WBC 3.7 L (3.8-10.6) k/uL RBC 3.99 (3.80-5.40) m/uL Hgb 11.7 (11.4-16.0) gm/dL Hct 34.8 (34.0-46.0) % MCV 87.3 (80.0-100.0) fL MCH 29.2 (25.0-35.0) pg MCHC 33.5 (31.0-37.0) g/dL RDW 14.4 (11.5-15.5) % Plt Count 156 (150-450) k/uL MPV 8.0 PT 10.1 (9.0-12.0) sec INR 0.9 (<1.2) APTT 25.5 (22.0-30.0) sec Sodium 138 (137-145) mmol/L Potassium 3.9 (3.5-5.1) mmol/L Chloride 105 (98-107) mmol/L Carbon Dioxide 26 (22-30) mmol/L Anion Gap 7 mmol/L BUN 12 (7-17) mg/dL Creatinine 1.13 H (0.52-1.04) mg/dL Est GFR (CKD-EPI)AfAm 64 (>60 ml/min/1.73 sqM) Est GFR (CKD-EPI)NonAf 55 (>60 ml/min/1.73 sqM) Glucose 105 H (74-99) mg/dL Plasma Lactic Acid Tim (0.7-2.0) mmol/L Calcium 8.9 (8.4-10.2) mg/dL Magnesium 2.0 (1.6-2.3) mg/dL Total Bilirubin <0.1 L (0.2-1.3) mg/dL AST 41 H (14-36) U/L ALT 28 (4-34) U/L Alkaline Phosphatase 92 (38-126) U/L Troponin I (0.000-0.034) ng/mL NT-Pro-B Natriuret Pep pg/mL Total Protein 6.6 (6.3-8.2) g/dL Albumin 4.0 (3.5-5.0) g/dL 01/25/21 01/25/21 01/25/21 Range/Units 18:45 18:45 18:45 WBC (3.8-10.6) k/uL RBC (3.80-5.40) m/uL Hgb (11.4-16.0) gm/dL Hct (34.0-46.0) % MCV (80.0-100.0) fL MCH (25.0-35.0) pg MCHC (31.0-37.0) g/dL RDW (11.5-15.5) % Plt Count (150-450) k/uL MPV PT (9.0-12.0) sec INR (<1.2) APTT (22.0-30.0) sec Sodium (137-145) mmol/L Potassium (3.5-5.1) mmol/L Chloride (98-107) mmol/L Carbon Dioxide (22-30) mmol/L Anion Gap mmol/L BUN (7-17) mg/dL Creatinine (0.52-1.04) mg/dL Est GFR (CKD-EPI)AfAm (>60 ml/min/1.73 sqM) Est GFR (CKD-EPI)NonAf (>60 ml/min/1.73 sqM) Glucose (74-99) mg/dL Plasma Lactic Acid Tim 0.8 (0.7-2.0) mmol/L Calcium (8.4-10.2) mg/dL Magnesium (1.6-2.3) mg/dL Total Bilirubin (0.2-1.3) mg/dL AST (14-36) U/L ALT (4-34) U/L Alkaline Phosphatase (38-126) U/L Troponin I <0.012 (0.000-0.034) ng/mL NT-Pro-B Natriuret Pep 858 pg/mL Total Protein (6.3-8.2) g/dL Albumin (3.5-5.0) g/dL Disposition Clinical Impression: Dependent edema Disposition: HOME SELF-CARE Condition: Good Instructions (If sedation given, give patient instructions): Leg Edema (ED) Is patient prescribed a controlled substance at d/c from ED?: No Referrals: [facility] [Primary Care Provider] - 1-2 days Time of Disposition: 20:21
[2021-01-25 19:29] LABS: ALT 28 U/L (4-34); AST 41 U/L (14-36); African American GFR (CKD) 64 (>60 ml/min/1.73 sqM); Alkaline Phosphatase 92 U/L (38-126); Anion Gap 7 mmol/L; Blood Urea Nitrogen 12 mg/dL (7-17); Calcium 8.9 mg/dL (8.4-10.2); Carbon Dioxide 26 mmol/L (22-30); Chloride 105 mmol/L (98-107); Glucose 105 mg/dL (74-99); Non-African American GFR(CKD) 55 (>60 ml/min/1.73 sqM); Potassium 3.9 mmol/L (3.5-5.1); Sodium 138 mmol/L (137-145); Total Bilirubin <0.1 mg/dL (0.2-1.3); Total Protein 6.6 g/dL (6.3-8.2)
--- NOTE | 2021-01-25 20:12 | US ---
EXAMINATION TYPE: US venous doppler duplex LE RT DATE OF EXAM: 01/25/2021 8:01 PM COMPARISON: 07/26/2019 CLINICAL HISTORY: swelling, DVT?. Swelling and pain. No hx of DVT. Patient takes aspirin. SIDE PERFORMED: Right TECHNIQUE: The lower extremity deep venous system is examined utilizing real time linear array sonog esthela with graded compression, doppler sonography and color-flow sonography. VESSELS IMAGED: Common Femoral Vein Deep Femoral Vein Greater Saphenous Vein * Femoral Vein Popliteal Vein Small Saphenous Vein * Proximal Calf Veins (* superficial vessels) Right Leg: No evidence of DVT in veins imaged at this time. Hypoechoic area with hyperechoic center and vascular hilum seen within the right groin: 2.0 x 1.0 x 0.7 cm. IMPRESSION: No sign of deep vein thrombosis in the right leg.
[2021-01-25 20:51] LABS: Basophils # (M) 0.04 k/uL (0-0.2); Eosinophils # (M) 0.07 k/uL (0-0.7); Monocytes # (M) 0.33 k/uL (0-1.0); Neutrophils # (M) 1.55 k/uL (1.3-7.7); Neutrophils % (M) 42 %; Nucleated Red Blood Cells 0 /100 WBC (0-0); Total Cells Counted 100
== END 2021-01-25 20:45 | disposition home or self-care (01) ==
LOC: EC 17:05
DX: R60.0 Localized edema (principal); I50.9 Heart failure, unspecified; J44.9 Chronic obstructive pulmonary disease, unspecified; F31.9 Bipolar disorder, unspecified; F41.9 Anxiety disorder, unspecified; F12.90 Cannabis use, unspecified, uncomplicated; F11.90 Opioid use, unspecified, uncomplicated; F17.200 Nicotine dependence, unspecified, uncomplicated; Z79.1 Long term (current) use of non-steroidal anti-inflammatories (NSAID); Z79.82 Long term (current) use of aspirin; Z79.51 Long term (current) use of inhaled steroids
CPT/HCPCS: 36415; 71046; 80053; 83605; 83735; 83880; 84484; 85025; 85610; 85730; 93005; 99284

== ENCOUNTER 2021-02-21 17:20 | Inpatient (IN) | payer OTHER ==
[2021-02-21] MEDS ORDERED: SODIUM CHLORIDE 0.9% 500 ML 500 ML IV ONE ×2 (18:10→19:38)
--- NOTE | 2021-02-21 18:24 | ED ---
General Adult HPI - General Chief complaint: Altered Mental Status Stated complaint: EPS Time Seen by Provider: 02/21/21 17:57 Source: patient, RN notes reviewed, old records reviewed Mode of arrival: ambulatory Limitations: no limitations - History of Present Illness Initial comments: 55-year-old female presenting for evaluation of confusion, possible UTI. Patient had been at [facility] and they report that she was not acting right and sent the patient to the emergency department for evaluation. The patient is able to give a history and is alert and oriented 3. She has no complaints. No headache. No fever. No abdominal pain or chest pain. No dysuria. No focal numbness or weakness. She is not exactly sure why she is here. Further history will be obtained from [facility]. - Related Data Home Medications Medication Instructions Recorded Confirmed Albuterol Sulfate [Ventolin HFA] 1 - 2 puff INHALATION RT-Q6H PRN 05/29/19 02/21/21 Aspirin EC [Ecotrin Low Dose] 81 mg PO DAILY 05/29/19 02/21/21 lisinopriL 20 mg PO DAILY 05/29/19 02/21/21 Acetaminophen [Tylenol] 1,000 mg PO Q6H PRN 07/01/19 02/21/21 Cholecalciferol [Vitamin D3 (25 5,000 unit PO DAILY 07/01/19 02/21/21 Mcg = 1000 Iu)] DULoxetine HCL [Cymbalta] 90 mg PO DAILY 07/01/19 02/21/21 Meloxicam 15 mg PO DAILY 07/01/19 02/21/21 Butalb/APAP/Caff 50-325-40Mg 1 tab PO DAILY PRN 01/25/21 02/21/21 [Fioricet 50-325-40] Cetirizine HCl [Zyrtec] 10 mg PO DAILY 01/25/21 02/21/21 Divalproex ER [Depakote ER] 250 mg PO BID 01/25/21 02/21/21 Folic Acid 1 mg PO DAILY 01/25/21 02/21/21 Pregabalin [Lyrica] 150 mg PO TID 01/25/21 02/21/21 Ziprasidone [Geodon] 40 mg PO W/BRKFST 01/25/21 02/21/21 Ziprasidone [Geodon] 80 mg PO W/SUPPER 01/25/21 02/21/21 tiZANidine HCL 4 mg PO TID PRN 01/25/21 02/21/21 Cephalexin [Keflex] 500 mg PO Q8HR 02/21/21 02/21/21 Hydrochlorothiazide 12.5 mg PO DAILY 02/21/21 02/21/21 [hydroCHLOROthiazide] Allergies Allergy/AdvReac Type Severity Reaction Status Date / Time ketorolac tromethamine Allergy Rash/Hives Verified 02/21/21 17:50 [From Toradol] tramadol HCl [From Ultram] Allergy Rash/Hives Verified 02/21/21 17:50 Review of Systems ROS Statement: Those systems with pertinent positive or pertinent negative responses have been documented in the HPI. ROS Other: All systems not noted in ROS Statement are negative. Past Medical History Past Medical History: COPD, Liver Disease Additional Past Medical History / Comment(s): , hepatitis cCHRONIC PAIN History of Any Multi-Drug Resistant Organisms: None Reported Past Surgical History: Section, Orthopedic Surgery, Uterine Ablation Additional Past Surgical History / Comment(s): surgery on left ankle, rt knee surgery Past Anesthesia/Blood Transfusion Reactions: No Reported Reaction Past Psychological History: Anxiety, Bipolar, Depression Smoking Status: Current every day smoker Past Alcohol Use History: Occasional Past Drug Use History: Heroin, Marijuana - Past Family History Mother Family Medical History: No Reported History General Exam Limitations: no limitations General appearance: alert, in no apparent distress Head exam: Present: atraumatic, normocephalic Eye exam: Present: normal appearance, PERRL ENT exam: Present: normal exam Neck exam: Present: normal inspection. Absent: tenderness, meningismus Respiratory exam: Present: normal lung sounds bilaterally. Absent: respiratory distress Cardiovascular Exam: Present: regular rate, normal rhythm GI/Abdominal exam: Present: soft. Absent: distended, tenderness, guarding Extremities exam: Present: normal inspection, normal capillary refill. Absent: pedal edema Neurological exam: Present: alert, oriented X3, CN II-XII intact. Absent: motor sensory deficit Psychiatric exam: Present: normal affect, normal mood. Absent: homicidal ideation, suicidal ideation Skin exam: Present: warm, dry, intact. Absent: cyanosis, diaphoretic Course Vital Signs 02/21/21 02/21/21 02/21/21 17:50 18:27 19:22 Temperature 98.4 F Pulse Rate 67 74 57 L Respiratory 18 16 18 Rate Blood Pressure 96/67 87/49 O2 Sat by Pulse 60 L 100 99 Oximetry EKG Findings - EKG Comments: EKG Findings:: EKG: Normal sinus rhythm, rate of 63, NV interval 168, QRS duration 90, QTC 456, no ST segment elevation. Medical Decision Making - Medical Decision Making 55-year-old female presenting with confusion. Patient is alert and able to give a history. She does have low blood pressure and appears dehydrated. She admits to not eating or drinking well. Workup is initiated. She has a normal CBC, CMP showing acute renal failure with an elevated BUN and creatinine. Creatinine is 6, BUN of 95. She's given IV hydration in the emergency department. Head CT negative. The remainder of her testing is unremarkable. She will be admitted for uremic encephalopathy, and acute renal failure. Case discussed with Dr. Jordan - Lab Data Result diagrams: 02/21/21 18:30 02/21/21 18:30 Lab Results 02/21/21 02/21/21 02/21/21 Range/Units 18:30 18:30 18:30 WBC 4.5 (3.8-10.6) k/uL RBC 4.62 (3.80-5.40) m/uL Hgb 13.0 (11.4-16.0) gm/dL Hct 37.5 (34.0-46.0) % MCV 81.2 D (80.0-100.0) fL MCH 28.2 (25.0-35.0) pg MCHC 34.7 (31.0-37.0) g/dL RDW 13.8 (11.5-15.5) % Plt Count 271 (150-450) k/uL MPV 6.9 PT 10.2 (9.0-12.0) sec INR 0.9 (<1.2) APTT 22.1 (22.0-30.0) sec Sodium (137-145) mmol/L Potassium (3.5-5.1) mmol/L Chloride (98-107) mmol/L Carbon Dioxide (22-30) mmol/L Anion Gap mmol/L BUN (7-17) mg/dL Creatinine (0.52-1.04) mg/dL Est GFR (CKD-EPI)AfAm (>60 ml/min/1.73 sqM) Est GFR (CKD-EPI)NonAf (>60 ml/min/1.73 sqM) Glucose (74-99) mg/dL Calcium (8.4-10.2) mg/dL Total Bilirubin (0.2-1.3) mg/dL AST (14-36) U/L ALT (4-34) U/L Alkaline Phosphatase (38-126) U/L Troponin I (0.000-0.034) ng/mL Total Protein (6.3-8.2) g/dL Albumin (3.5-5.0) g/dL Urine Color Yellow Urine Appearance Clear (Clear) Urine pH 5.0 (5.0-8.0) Ur Specific Interior 1.014 (1.001-1.035) Urine Protein Trace H (Negative) Urine Glucose (UA) Negative (Negative) Urine Ketones Negative (Negative) Urine Blood Small H (Negative) Urine Nitrite Negative (Negative) Urine Bilirubin Negative (Negative) Urine Urobilinogen 2.0 (<2.0) mg/dL Ur Leukocyte Esterase Moderate H (Negative) Urine RBC 3 (0-5) /hpf Urine WBC 10 H (0-5) /hpf Ur Squamous Epith Cells 1 (0-4) /hpf Hyaline Casts 4 H (0-2) /lpf Urine Mucus Rare H (None) /hpf Urine Opiates Screen Not Detected (NotDetected) Ur Oxycodone Screen Not Detected (NotDetected) Urine Methadone Screen Not Detected (NotDetected) Ur Propoxyphene Screen Not Detected (NotDetected) Ur Barbiturates Screen Not Detected (NotDetected) U Tricyclic Antidepress Not Detected (NotDetected) Ur Phencyclidine Scrn Not Detected (NotDetected) Ur Amphetamines Screen Not Detected (NotDetected) U Methamphetamines Scrn Not Detected (NotDetected) U Benzodiazepines Scrn Not Detected (NotDetected) Urine Cocaine Screen Detected H (NotDetected) U Marijuana (THC) Screen Detected H (NotDetected) Serum Alcohol mg/dL 02/21/21 02/21/21 Range/Units 18:30 18:30 WBC (3.8-10.6) k/uL RBC (3.80-5.40) m/uL Hgb (11.4-16.0) gm/dL Hct (34.0-46.0) % MCV (80.0-100.0) fL MCH (25.0-35.0) pg MCHC (31.0-37.0) g/dL RDW (11.5-15.5) % Plt Count (150-450) k/uL MPV PT (9.0-12.0) sec INR (<1.2) APTT (22.0-30.0) sec Sodium 135 L (137-145) mmol/L Potassium 4.1 (3.5-5.1) mmol/L Chloride 102 (98-107) mmol/L Carbon Dioxide 17 L (22-30) mmol/L Anion Gap 16 mmol/L BUN 95 H (7-17) mg/dL Creatinine 5.97 H (0.52-1.04) mg/dL Est GFR (CKD-EPI)AfAm 9 (>60 ml/min/1.73 sqM) Est GFR (CKD-EPI)NonAf 7 (>60 ml/min/1.73 sqM) Glucose 81 (74-99) mg/dL Calcium 7.9 L (8.4-10.2) mg/dL Total Bilirubin 0.6 (0.2-1.3) mg/dL AST 43 H (14-36) U/L ALT 27 (4-34) U/L Alkaline Phosphatase 55 (38-126) U/L Troponin I <0.012 (0.000-0.034) ng/mL Total Protein 7.1 (6.3-8.2) g/dL Albumin 3.9 (3.5-5.0) g/dL Urine Color Urine Appearance (Clear) Urine pH (5.0-8.0) Ur Specific Interior (1.001-1.035) Urine Protein (Negative) Urine Glucose (UA) (Negative) Urine Ketones (Negative) Urine Blood (Negative) Urine Nitrite (Negative) Urine Bilirubin (Negative) Urine Urobilinogen (<2.0) mg/dL Ur Leukocyte Esterase (Negative) Urine RBC (0-5) /hpf Urine WBC (0-5) /hpf Ur Squamous Epith Cells (0-4) /hpf Hyaline Casts (0-2) /lpf Urine Mucus (None) /hpf Urine Opiates Screen (NotDetected) Ur Oxycodone Screen (NotDetected) Urine Methadone Screen (NotDetected) Ur Propoxyphene Screen (NotDetected) Ur Barbiturates Screen (NotDetected) U Tricyclic Antidepress (NotDetected) Ur Phencyclidine Scrn (NotDetected) Ur Amphetamines Screen (NotDetected) U Methamphetamines Scrn (NotDetected) U Benzodiazepines Scrn (NotDetected) Urine Cocaine Screen (NotDetected) U Marijuana (THC) Screen (NotDetected) Serum Alcohol <10 mg/dL Disposition Clinical Impression: SALLIE (acute kidney injury), Uremic encephalopathy Disposition: ADMITTED IP TO THIS [facility] Condition: Stable Is patient prescribed a controlled substance at d/c from ED?: No Referrals: [facility] [Primary Care Provider] - 1-2 days Decision to Admit Reason: Admit from EC Decision Date: 02/21/21 Decision Time: 19:46
[2021-02-21 19:09] LABS: HCT 37.5 % (34.0-46.0); MCH 28.2 pg (25.0-35.0); MCHC 34.7 g/dL (31.0-37.0); Mean Platelet Volume 6.9; Platelet Count 271 k/uL (150-450); RBC 4.62 m/uL (3.80-5.40); RDW 13.8 % (11.5-15.5); WBC 4.5 k/uL (3.8-10.6)
[2021-02-21 19:11] LABS: ALT 27 U/L (4-34); AST 43 U/L (14-36); African American GFR (CKD) 9 (>60 ml/min/1.73 sqM); Albumin 3.9 g/dL (3.5-5.0); Alcohol <10 mg/dL; Alkaline Phosphatase 55 U/L (38-126); Anion Gap 16 mmol/L; Blood Urea Nitrogen 95 mg/dL (7-17); Calcium 7.9 mg/dL (8.4-10.2); Carbon Dioxide 17 mmol/L (22-30); Chloride 102 mmol/L (98-107); Glucose 81 mg/dL (74-99); Non-African American GFR(CKD) 7 (>60 ml/min/1.73 sqM); Sodium 135 mmol/L (137-145); Total Bilirubin 0.6 mg/dL (0.2-1.3); Total Protein 7.1 g/dL (6.3-8.2)
[2021-02-21 19:12] LABS: MCV 81.2 fL (80.0-100.0)
[2021-02-21 19:15] LABS: INR 0.9 (<1.2); Partial Thromboplastin Time 22.1 sec (22.0-30.0); Prothrombin Time 10.2 sec (9.0-12.0)
[2021-02-21 19:17] LABS: Potassium 4.1 mmol/L (3.5-5.1)
[2021-02-21 19:26] LABS: Appearance,Urine Clear (Clear); Bilirubin,Urine Negative (Negative); Blood,Urine Small (Negative); Color,Urine Yellow; Glucose,Urine (UA) Negative (Negative); Hyaline Casts,Urine 4 /lpf (0-2); Ketones,Urine Negative (Negative); Leukocyte Esterase,Urine Moderate (Negative); Mucus,Urine Rare /hpf; Nitrite,Urine Negative (Negative); Protein,Urine Trace (Negative); RBC,Urine 3 /hpf (0-5); Specific Gravity,Urine 1.014 (1.001-1.035); Squamous Epithelial Cell,Urine 1 /hpf (0-4); WBC,Urine 10 /hpf (0-5)
--- NOTE | 2021-02-21 19:33 | CT ---
EXAMINATION TYPE: CT brain wo con DATE OF EXAM: 02/21/2021 COMPARISON: 05/29/2019 HISTORY: Altered mental status. CT DLP: 1072.4 mGycm Automated exposure control for dose reduction was used. There is some cerebral cortical atrophy. There is no mass effect nor midline shift. There is no sign of intracranial hemorrhage. Calvarium is intact. IMPRESSION: Mild cerebral atrophy. No acute intracranial abnormality. No adverse change.
[2021-02-21 19:34] LABS: Amphetamine Screen,Urine Not Detected (NotDetected); Barbiturate Screen,Urine Not Detected (NotDetected); Benzodiazepines Screen,Urine Not Detected (NotDetected); Cocaine Screen,Urine Detected (NotDetected); Methadone Screen, Urine Not Detected (NotDetected); Opiate Screen,Urine Not Detected (NotDetected); Oxycodone Screen, Urine Not Detected (NotDetected); Phencyclidine Screen,Urine Not Detected (NotDetected); Tricyclic Antidepressant,Urine Not Detected (NotDetected); Urn Cannabinoid Scrn Detected (NotDetected)
[2021-02-21] MEDS ORDERED: NALOXONE 0.4 MG/ML 1 ML VIAL IV PRN (19:46)
[2021-02-21] MEDS ORDERED: ACETAMINOPHEN TAB 325 MG TAB PO PRN (19:46)
[2021-02-21 20:05] LABS: Glucose,Whole Blood 79 mg/dL (75-99)
[2021-02-21 20:28] LABS: Eosinophils # (M) 0.05 k/uL (0-0.7); Lymphocytes # (M) 1.85 k/uL (1.0-4.8); Monocytes # (M) 0.41 k/uL (0-1.0); Neutrophils # (M) 2.21 k/uL (1.3-7.7); Neutrophils % (M) 49 %; Nucleated Red Blood Cells 0 /100 WBC (0-0); Total Cells Counted 100
[2021-02-21] MEDS: SODIUM CHLORIDE 0.9% 1,000 ML IV SCH (21:08)
--- NOTE | 2021-02-22 09:54 | P.NPCON ---
History of Present Illness - Reason for Consult acute renal failure - History of Present Illness Reason for consultation: Acute kidney injury History of present illness: The patient is a 55-year-old female seen in renal consultation for acute kidney injury. Patient presented to the hospital with altered mental status and concern for urinary tract infection. [facility] in her behavior. Patient is currently awake and alert. She denies any chest pain or shortness of breath. No edema. Good urine output. No hematuria or dysuria. Oral intake is fair. Her blood pressure was low in the systolic 80s on admission and she did receive fluid bolus. She is currently maintained on normal saline at 100 mL an hour. Blood pressure this morning was 99/56. She denies use of nonsteroidals however Mobic is listed in her home medication list. She does have history of high blood pressure and was taking lisinopril as well as hydrochlorothiazide prior to admission. No history of diabetes. Denies family history of renal disease. Creatinine on admission was 5.97. Labs from today are pending. Baseline creatinine is near 1. Vital signs are stable. General: The patient appeared well nourished and normally developed. HEENT: Head exam is unremarkable. LUNGS: Breath sounds decreased. HEART: Rate and Rhythm are regular. ABDOMEN: Soft, no distention. EXTREMITITES: No edema. Past Medical History Past Medical History: COPD, Liver Disease Additional Past Medical History / Comment(s): , hepatitis C CHRONIC PAIN History of Any Multi-Drug Resistant Organisms: None Reported Past Surgical History: Section, Orthopedic Surgery, Uterine Ablation Additional Past Surgical History / Comment(s): surgery on left ankle, rt knee surgery Past Anesthesia/Blood Transfusion Reactions: No Reported Reaction Past Psychological History: Anxiety, Bipolar, Depression Smoking Status: Current every day smoker Past Alcohol Use History: Occasional Additional Past Alcohol Use History / Comment(s): smokes 1 PPD for 30 yrs Past Drug Use History: Heroin, Marijuana Additional Drug Use History / Comment(s): use marijuanA denies prescription drug abuse DENIES RECENT COCAINE USE - Past Family History Mother Family Medical History: CVA/TIA Father History Unknown: Yes Additional Family Medical History / Comment(s): FATHER STILL ALIVE LIVES IN [place] Medications and Allergies Home Medications Medication Instructions Recorded Confirmed Type Albuterol Sulfate [Ventolin HFA] 1 - 2 puff INHALATION RT-Q6H PRN 05/29/19 02/21/21 History Aspirin EC [Ecotrin Low Dose] 81 mg PO DAILY 05/29/19 02/21/21 History lisinopriL 20 mg PO DAILY 05/29/19 02/21/21 History Acetaminophen [Tylenol] 1,000 mg PO Q6H PRN 07/01/19 02/21/21 History Cholecalciferol [Vitamin D3 (25 5,000 unit PO DAILY 07/01/19 02/21/21 History Mcg = 1000 Iu)] DULoxetine HCL [Cymbalta] 90 mg PO DAILY 07/01/19 02/21/21 History Meloxicam 15 mg PO DAILY 07/01/19 02/21/21 History Butalb/APAP/Caff 50-325-40Mg 1 tab PO DAILY PRN 01/25/21 02/21/21 History [Fioricet 50-325-40] Cetirizine HCl [Zyrtec] 10 mg PO DAILY 01/25/21 02/21/21 History Divalproex ER [Depakote ER] 250 mg PO BID 01/25/21 02/21/21 History Folic Acid 1 mg PO DAILY 01/25/21 02/21/21 History Pregabalin [Lyrica] 150 mg PO TID 01/25/21 02/21/21 History Ziprasidone [Geodon] 40 mg PO W/BRKFST 01/25/21 02/21/21 History Ziprasidone [Geodon] 80 mg PO W/SUPPER 01/25/21 02/21/21 History tiZANidine HCL 4 mg PO TID PRN 01/25/21 02/21/21 History Cephalexin [Keflex] 500 mg PO Q8HR 02/21/21 02/21/21 History Hydrochlorothiazide 12.5 mg PO DAILY 02/21/21 02/21/21 History [hydroCHLOROthiazide] Allergies Allergy/AdvReac Type Severity Reaction Status Date / Time ketorolac tromethamine Allergy Rash/Hives Verified 02/21/21 17:50 [From Toradol] tramadol HCl [From Ultram] Allergy Rash/Hives Verified 02/21/21 17:50 Physical Exam Vitals: Vital Signs Temp Pulse Pulse Resp BP BP Pulse Ox 02/22/21 05:17 98.2 F 68 16 94/57 94 L 02/22/21 05:11 68 02/22/21 04:00 62 18 99/56 97 02/21/21 23:00 52 L 18 90/56 98 02/21/21 22:35 54 L 16 97/77 98 02/21/21 21:19 57 L 16 90/55 97 02/21/21 20:06 58 L 16 82/56 99 02/21/21 19:22 57 L 18 87/49 99 02/21/21 18:27 74 16 100 02/21/21 17:50 98.4 F 67 18 96/67 60 L Intake and Output 02/21/21 02/22/21 02/22/21 22:59 06:59 14:59 Other: # Voids 0 Weight 54.431 kg 54.431 kg Results - Lab Results Most recent lab results Calcium 7.9 mg/dL (8.4-10.2) L 02/21/21 18:30 02/21/21 18:30 02/21/21 18:30 Assessment and Plan Plan: Assessment: 1. Acute kidney injury mostly prerenal secondary to hypovolemia as well as hypotension. Creatinine 5.97 on admission. Baseline creatinine near 1. UA fairly benign. 2. Benign hypertension. Currently on the lower side. 3. Pyuria. 4. Metabolic acidosis secondary to acute kidney injury. Plan: Maintain IV fluids. Check renal ultrasound. Continue to hold all antihypertensives. Follow-up morning labs. Check urine culture. Thank you for the consultation. I will continue to follow the patient with you during her hospital stay.
[2021-02-22] MEDS ORDERED: tiZANidine 4 MG TAB PO PRN (10:56)
[2021-02-22] MEDS ORDERED: ACETAMINOPHEN TAB 500 MG TAB PO PRN (10:56)
[2021-02-22] MEDS ORDERED: ALBUTEROL NEBULIZED 2.5 MG/3 ML INHALATION PRN (10:56)
[2021-02-22] MEDS ORDERED: BUTALB/APAP/CAFF 50-325-40MG TAB PO PRN (10:56)
--- NOTE | 2021-02-22 11:17 | US ---
EXAMINATION TYPE: US kidneys/renal and bladder DATE OF EXAM: 02/22/2021 COMPARISON: US kidneys 04/12/[address] abdomen pelvis 04/16/20152014 CLINICAL HISTORY: sallie. SALLIE EXAM MEASUREMENTS: Right Kidney: 10.1 x 3.6 x 4.4 cm Left Kidney: 10.1 x 4.6 x 4.7 cm Right Kidney: Appeared wnl Left Kidney: Visualized portions appeared wnl, lateral aspect difficult to visualize Bladder: Unable to visualize well, pt voided just prior to exam There is no evidence for hydronephrosis at this point in time. Cortical medullary differentiation is maintained. No nephrolithiasis is seen. No masses are identified. IMPRESSION: Renal sizes as described, no hydronephrosis
[2021-02-22 11:38] LABS: Calcium 9.2 mg/dL (8.4-10.2); Magnesium 2.4 mg/dL (1.6-2.3); Potassium 4.6 mmol/L (3.5-5.1)
--- NOTE | 2021-02-22 12:35 | P.HPIM ---
History of Present Illness H&P Date: 02/22/21 HISTORY OF PRESENT ILLNESS This is a 55-year-old female who has her first appointment with [facility] this with past medical history of COPD, active tobacco use and dependence, hypertension, history of hepatitis C, seasonal ALLERGIES, bipolar disorder, history of drug use with marijuana and heroin. Patient presented to [facility] emergency [facility] with confusion and possible urinary tract infection. Patient was at [facility] and they reported that she wasn't acting right and patient was sent in. Patient states that she is f eeling better at the time of this evaluation. She states she is drinking quite a bit of liquids at home but not eating very well she has decreased appetite. She denies any vomiting or diarrhea. She denies any loss of consciousness or syncopal episode. Patient was afebrile, heart rate 67, blood pressure 96/67, pulse ox 60 and repeat 100%. EKG was sinus rhythm with no acute ST changes. CBC was unremarkable. Sodium 135, BUN 95 and creatinine 5.97, CO2 17, potassium 4.1, AST 43, troponin negative. Urinalysis clear with leukoesterase moderate, blood small, wbc's 10. Urine drug screen positive for cocaine and marijuana. Coronavirus not detected. CAT scan of the brain revealed no acute intracranial abnormality. Renal ultrasound revealed no hydronephrosis. Patient admitted to the cardiac stepdown unit and patient has been seen by nephrology for acute kidney injury and metabolic acidosis with plan to continue IV fluids, hold antihypertensives and monitor labs. Urine culture to be obt ained. REVIEW OF SYSTEMS Constitutional: No fever, no chills, no night sweats. No weight change. Reported weakness, Reported fatigue Reported lethargy. Reported daytime sl eepiness. EENT: No headache. No blurred vision or double vision, no loss of vision. No loss of Hearing, Reported dizziness. No nasal drainage or congestion. No epistaxis. No sore throat. Lungs: No shortness of breath, cough, no sputum production. No wheezing. Cardiovascular: No chest pain, no lower extremity edema. No palpitations. No paroxysmal nocturnal dyspnea. No orthopnea. No lightheadedness or dizziness. Denies syncopal episodes. Abdominal: No abdominal pain. No nausea, vomiting. No diarrhea. No constipation. No bloody or tarry stools.. No loss of appetite. Genitourinary: No dysuria, increased frequency, urgency. No urinary retention. Musculoskeletal: No myalgias. Reported muscle weakness, Reported gait dysfunction, no frequent falls. No back pain. No neck pain. Integumentary: No wounds, no lesions. No rash or pruritus. No unusual bruising. No change in hair or nails. Neurologic: No aphasia. No facial droop. Reported change in mentation. No head injury. No headache. No paralysis. No paresthesia. Psychiatric: No depression. No anxiety. No mood swings. Endocrine: No abnormal blood sugars. No weight change. No excessive sweating or thirst. No cold intolerance. SOCIAL HISTORY Patient is a smoker of 1-1/2 packs per day since she was 17 years of age. Occasional alcohol use. Patient uses marijuana and denies prescription drug use. She denies any recent cocaine use. She states she is on Suboxone was not listed on her home medication list. Patient lives alone. FAMILY HISTORY Mother from a stroke. Father is alive but she does not have any contact with him. Patient also has 2 half-brothers and one half sisters that she does not have any contact with. Patient has one daughter with no major medical problems. PHYSICAL EXAMINATION Gen: This is a 55-year-old thin female. Patient is resting in bed appears to be comfortable and in no acute distress. HEENT: Head is atraumatic, normocephalic. Pupils equal, round. Sclerae is anicteric. NECK: Supple. No JVD. No lymphadenopathy. No thyromegaly. LUNGS: Clear to auscultation. No wheezes or rhonchi. No intercostal retractions. HEART: Regular rate and rhythm. No murmur. ABDOMEN: Soft. Bowel sounds are present. No masses. No tenderness. EXTREMITIES: No pedal edema. No calf tenderness. NEUROLOGICAL: Patient is awake, alert and oriented x3. Cranial nerves 2 through 12 are grossly intact. ASSESSMENT AND PLAN 1. Acute kidney injury most likely secondary to hypovolemia and hypotension. Continue to monitor renal function. Continue IV fluids per nephrology, nephrol ogy consult appreciated. 2. Metabolic acidosis secondary to acute kidney injury. Continue to monitor, continue IV fluids. 3. Acute urinary tract infection. Obtain urine specimen for culture, patient placed on ceftriaxone. 4. COPD without exacerbation. Continue albuterol nebulizer every 6 hours as needed. 5. Positive urine drug screen for cocaine. 6. Tobacco use and dependence. Nicotine patch daily. 7. Hypertension. Blood pressure medications on hold, avoid hypotension. 8. History of hepatitis C. 9. Seasonal ALLERGIES. Continue Claritin daily. 10. Bipolar disorder. Continue Depakote 250 mg twice daily, Cymbalta 90 mg daily, Lyrica 150 mg 3 times daily, Geodon 40 mg with breakfast and 80 mg with supper. Patient will follow-up with [facility] after discharge. 11. Chronic back pain. Continue Zanaflex as needed. 12. COVID-19 testing negative. Patient has been hospitalized during a pandemic. Patient will be admitted to the hospital for a minimum of 2 night stay. DISCHARGE PLAN To be determined. Impression and plan of care have been directed as dictated by the signing physician. Sveta Nolasco nurse practitioner acting as scribe for signing physician. Past Medical History Past Medical History: COPD, Liver Disease Additional Past Medical History / Comment(s): , hepatitis C CHRONIC PAIN History of Any Multi-Drug Resistant Organisms: None Reported Past Surgical History: Section, Orthopedic Surgery, Uterine Ablation Additional Past Surgical History / Comment(s): surgery on left ankle, rt knee surgery Past Anesthesia/Blood Transfusion Reactions: No Reported Reaction Past Psychological History: Anxiety, Bipolar, Depression Smoking Status: Current every day smoker Past Alcohol Use History: Occasional Additional Past Alcohol Use History / Comment(s): smokes 1 PPD for 30 yrs Past Drug Use History: Heroin, Marijuana Additional Drug Use History / Comment(s): use marijuanA denies prescription drug abuse DENIES RECENT COCAINE USE - Past Family History Mother Family Medical History: CVA/TIA Father History Unknown: Yes Additional Family Medical History / Comment(s): FATHER STILL ALIVE LIVES IN [place] Medications and Allergies Home Medications Medication Instructions Recorded Confirmed Type Albuterol Sulfate [Ventolin HFA] 1 - 2 puff INHALATION RT-Q6H PRN 05/29/19 02/21/21 History Aspirin EC [Ecotrin Low Dose] 81 mg PO DAILY 05/29/19 02/21/21 History lisinopriL 20 mg PO DAILY 05/29/19 02/21/21 History Acetaminophen [Tylenol] 1,000 mg PO Q6H PRN 07/01/19 02/21/21 History Cholecalciferol [Vitamin D3 (25 5,000 unit PO DAILY 07/01/19 02/21/21 History Mcg = 1000 Iu)] DULoxetine HCL [Cymbalta] 90 mg PO DAILY 07/01/19 02/21/21 History Meloxicam 15 mg PO DAILY 07/01/19 02/21/21 History Butalb/APAP/Caff 50-325-40Mg 1 tab PO DAILY PRN 01/25/21 02/21/21 History [Fioricet 50-325-40] Cetirizine HCl [Zyrtec] 10 mg PO DAILY 01/25/21 02/21/21 History Divalproex ER [Depakote ER] 250 mg PO BID 01/25/21 02/21/21 History Folic Acid 1 mg PO DAILY 01/25/21 02/21/21 History Pregabalin [Lyrica] 150 mg PO TID 01/25/21 02/21/21 History Ziprasidone [Geodon] 40 mg PO W/BRKFST 01/25/21 02/21/21 History Ziprasidone [Geodon] 80 mg PO W/SUPPER 01/25/21 02/21/21 History tiZANidine HCL 4 mg PO TID PRN 01/25/21 02/21/21 History Cephalexin [Keflex] 500 mg PO Q8HR 02/21/21 02/21/21 History Hydrochlorothiazide 12.5 mg PO DAILY 02/21/21 02/21/21 History [hydroCHLOROthiazide] Allergies Allergy/AdvReac Type Severity Reaction Status Date / Time ketorolac tromethamine Allergy Rash/Hives Verified 02/21/21 17:50 [From Toradol] tramadol HCl [From Ultram] Allergy Rash/Hives Verified 02/21/21 17:50 Physical Exam Vitals: Vital Signs Temp Pulse Pulse Resp BP BP Pulse Ox 02/22/21 05:17 98.2 F 68 16 94/57 94 L 02/22/21 05:11 68 02/22/21 04:00 62 18 99/56 97 02/21/21 23:00 52 L 18 90/56 98 02/21/21 22:35 54 L 16 97/77 98 02/21/21 21:19 57 L 16 90/55 97 02/21/21 20:06 58 L 16 82/56 99 02/21/21 19:22 57 L 18 87/49 99 02/21/21 18:27 74 16 100 02/21/21 17:50 98.4 F 67 18 96/67 60 L Intake and Output 02/21/21 02/22/21 02/22/21 22:59 06:59 14:59 Intake Total 0 Balance 0 Intake: Oral 0 Other: # Voids 0 0 # Bowel Movements 0 Weight 54.431 kg 54.431 kg Results CBC & Chem 7: 02/21/21 18:30 02/22/21 10:13 Labs: Abnormal Lab Results - Last 24 Hours (Table) 02/21/21 02/21/21 Range/Units 18:30 18:30 Sodium 135 L (137-145) mmol/L Carbon Dioxide 17 L (22-30) mmol/L BUN 95 H (7-17) mg/dL Creatinine 5.97 H (0.52-1.04) mg/dL Calcium 7.9 L (8.4-10.2) mg/dL AST 43 H (14-36) U/L Urine Protein Trace H (Negative) Urine Blood Small H (Negative) Ur Leukocyte Esterase Moderate H (Negative) Urine WBC 10 H (0-5) /hpf Hyaline Casts 4 H (0-2) /lpf Urine Mucus Rare H (None) /hpf Urine Cocaine Screen Detected H (NotDetected) U Marijuana (THC) Screen Detected H (NotDetected) Thrombosis Risk Factor Assmnt - Choose All That Apply Each Factor Represents 1 point: Age 41-60 years Thrombosis Risk Factor Assessment Total Risk Factor Score: 1 Thrombosis Risk Factor Assessment Level: Low Risk
[2021-02-22] MEDS: NICOTINE 21MG/24HR PATCH TRANSDERM SCH (14:39)
[2021-02-22] MEDS: SODIUM CHLORIDE 0.9% 1,000 ML IV SCH ×2 (14:40→17:26)
[2021-02-22] MEDS ORDERED: CEPHALEXIN 500 MG CAP PO SCH (16:00)
[2021-02-22] MEDS ORDERED: ZIPRASIDONE 80 MG CAP PO SCH (17:30)
[2021-02-22] MEDS: PREGABALIN 75 MG CAP PO SCH ×2 (17:35→22:58)
[2021-02-23] MEDS: DIVALPROEX ER 250 MG TAB.ER.24H PO SCH ×2 (02:20→08:36)
[2021-02-23 02:50] VITALS: RESP 16
[2021-02-23] MEDS: SODIUM CHLORIDE 0.9% 1,000 ML IV SCH (06:27)
[2021-02-23] MEDS ORDERED: ZIPRASIDONE 40 MG CAP PO SCH (07:30)
[2021-02-23 08:32] LABS: Calcium 9.6 mg/dL (8.4-10.2); Magnesium 1.8 mg/dL (1.6-2.3); Potassium 4.9 mmol/L (3.5-5.1)
[2021-02-23] MEDS: NICOTINE 21MG/24HR PATCH TRANSDERM SCH (08:36)
[2021-02-23] MEDS: PREGABALIN 75 MG CAP PO SCH (08:38)
[2021-02-23] MEDS ORDERED: FOLIC ACID 1 MG TAB PO SCH (09:00)
[2021-02-23] MEDS ORDERED: ASPIRIN 81 MG PO SCH (09:00)
[2021-02-23] MEDS ORDERED: DULoxetine HCL 30 MG CAPSULE.DR PO SCH (09:00)
[2021-02-23] MEDS ORDERED: LORATADINE 10 MG TAB PO SCH (09:00)
[2021-02-23] MEDS ORDERED: CHOLECALCIFEROL 25 MCG (1000 IU) TABLET PO SCH (09:00)
--- NOTE | 2021-02-23 10:19 | P.DS ---
Providers Date of admission: 02/21/21 19:46 Expected date of discharge: 02/23/21 Attending physician: Bishnu Jordan MD Consults: 02/21/21 19:47 Consult Physician Routine Consulting Provider: David Ernandez Consult Reason/Comments: SALLIE Do you want consulting provider notified?: Yes Primary care physician: [facility] Course: HISTORY OF PRESENT ILLNESS This is a 55-year-old female who has her first appointment with [facility] this with past medical history of COPD, active tobacco use and dependence, hypertension, history of hepatitis C, seasonal ALLERGIES, bipolar disorder, history of drug use with marijuana and heroin. Patient presented to [facility] emergency center with confusion and possible urinary tract infection. Patient was at [facility] and they reported that she wasn't acting right and patient was sent in. Patient states that she is feeling better at the time of this evaluation. She states she is drinking quite a bit of liquids at home but not eating very well she has decreased appetite. She denies any vomiting or diarrhea. She denies any loss of consciousness or syncopal episode. Patient was afebrile, heart rate 67, blood pressure 96/67, pulse ox 60 and repeat 100%. EKG was sinus rhythm with no acute ST changes. CBC was unremarkable. Sodium 135, BUN 95 and creatinine 5.97, CO2 17, potassium 4.1, AST 43, troponin negative. Urinalysis clear with leukoesterase moderate, blood small, wbc's 10. Urine drug screen positive for cocaine and marijuana. Coronavirus not detected. CAT scan of the brain revealed no acute intracranial abnormality. Renal ultrasound revealed no hydronephrosis. Patient admitted to the cardiac stepdown unit and patient has been seen by nephrology for acute kidney injury and metabolic acidosis with plan to continue IV fluids, hold antihypertensives and monitor labs. Urine culture to be obtained. 02/23: Repeat blood work yesterday revealed normal electrolytes, BUN 89 and creatinine 2.63. Today repeat lab work reveals normal electrolytes, BUN 51 and creatinine 1.02. Blood sugar 145. Magnesium 1.8. The patient has been seen and followed by nephrology. Urine culture is in progress as it was obtained yesterday. She has been afebrile, heart rate 66, blood pressure 128/75, pulse ox 100% on room air. 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 Patient has been treated with Keflex for UTI in the outpatient setting, additional prescription for 3 more days has been sent to her pharmacy. Patient will be discharged home today in stable condition. Plan [facility] for [facility] and also with [facility]. ASSESSMENT AND PLAN 1. Acute kidney injury most likely secondary to hypovolemia and hypotension. 2. Metabolic acidosis secondary to acute kidney injury. 3. Acute urinary tract infection. 4. COPD without exacerbation. 5. Positive urine drug screen for cocaine. 6. Tobacco use and dependence. 7. Hypertension. 8. History of hepatitis C. 9. Seasonal ALLERGIES. 10. Bipolar disorder. 11. Chronic back pain. DISCHARGE PLAN Home. Impression and plan of care have been directed as dictated by the signing physician. Sveta Nolasco nurse practitioner acting as scribe for signing physician. Patient Condition at Discharge: Stable Plan - Discharge Summary New Discharge Prescriptions: New Cephalexin [Keflex] 500 mg PO Q8HR 3 Days #9 cap Continue lisinopriL 20 mg PO DAILY Aspirin EC [Ecotrin Low Dose] 81 mg PO DAILY Albuterol Sulfate [Ventolin HFA] 1 - 2 puff INHALATION RT-Q6H PRN PRN Reason: Shortness Of Breath DULoxetine HCL [Cymbalta] 90 mg PO DAILY Acetaminophen [Tylenol] 1,000 mg PO Q6H PRN PRN Reason: Pain Cholecalciferol [Vitamin D3 (25 Mcg = 1000 Iu)] 5,000 unit PO DAILY Pregabalin [Lyrica] 150 mg PO TID Divalproex ER [Depakote ER] 250 mg PO BID Butalb/APAP/Caff 50-325-40Mg [Fioricet 50-325-40] 1 tab PO DAILY PRN PRN Reason: Migraine Headache Ziprasidone [Geodon] 40 mg PO W/BRKFST Cetirizine HCl [Zyrtec] 10 mg PO DAILY Folic Acid 1 mg PO DAILY Ziprasidone [Geodon] 80 mg PO W/SUPPER tiZANidine HCL 4 mg PO TID PRN PRN Reason: Muscle Spasm Cephalexin [Keflex] 500 mg PO Q8HR Discontinued Meloxicam 15 mg PO DAILY Hydrochlorothiazide [hydroCHLOROthiazide] 12.5 mg PO DAILY Discharge Medication List Albuterol Sulfate [Ventolin HFA] 1 - 2 puff INHALATION RT-Q6H PRN 05/29/19 [History] Aspirin EC [Ecotrin Low Dose] 81 mg PO DAILY 05/29/19 [History] lisinopriL 20 mg PO DAILY 05/29/19 [History] Acetaminophen [Tylenol] 1,000 mg PO Q6H PRN 07/01/19 [History] Cholecalciferol [Vitamin D3 (25 Mcg = 1000 Iu)] 5,000 unit PO DAILY 07/01/19 [History] DULoxetine HCL [Cymbalta] 90 mg PO DAILY 07/01/19 [History] Butalb/APAP/Caff 50-325-40Mg [Fioricet 50-325-40] 1 tab PO DAILY PRN 01/25/21 [History] Cetirizine HCl [Zyrtec] 10 mg PO DAILY 01/25/21 [History] Divalproex ER [Depakote ER] 250 mg PO BID 01/25/21 [History] Folic Acid 1 mg PO DAILY 01/25/21 [History] Pregabalin [Lyrica] 150 mg PO TID 01/25/21 [History] Ziprasidone [Geodon] 40 mg PO W/BRKFST 01/25/21 [History] Ziprasidone [Geodon] 80 mg PO W/SUPPER 01/25/21 [History] tiZANidine HCL 4 mg PO TID PRN 01/25/21 [History] Cephalexin [Keflex] 500 mg PO Q8HR 02/21/21 [History] Cephalexin [Keflex] 500 mg PO Q8HR 3 Days #9 cap 02/23/21 [Rx] Follow up Appointment(s)/Referral(s): [facility] [Primary Care Provider] - 1 Week (CALL TO SET UP APPOINTMENT TO BE SEEN IN 1 WEEK) David Ernandez DO [STAFF PHYSICIAN] - 03/21/21 1:00 pm Patient Instructions/Handouts: Acute Kidney Injury (DC), Urinary Tract Infection in Women (DC) Discharge/Stand Alone Forms: AA Meetings [place]to, Who Do I Call?, Community Resources, Outpatient Counseling Discharge Disposition: HOME SELF-CARE
[2021-02-23 10:30] VITALS: BP 128/75; PULSE 66; TEMP 98.6
--- NOTE | 2021-02-23 13:35 | P.PN ---
Subjective Patient is seen in follow for acute kidney injury. Renal function significantly improved. Good urine output. No vomiting or diarrhea. Oral intake is good. Vital signs are stable. General: The patient appeared well nourished and normally developed. HEENT: Head exam is unremarkable. Neck is without jugular venous distension. LUNGS: Breath sounds decreased. HEART: Rate and Rhythm are regular. ABDOMEN: Soft, no distention. EXTREMITITES: No edema. Objective - Vital Signs Vital signs: Vital Signs Temp 98.6 F 02/23/21 08:00 Pulse 66 02/23/21 08:00 Resp 16 02/23/21 08:00 BP 128/75 02/23/21 08:00 Pulse Ox 100 02/23/21 08:00 Intake & Output 02/22/21 02/23/21 02/23/21 18:59 06:59 18:59 Intake Total 0 120 Output Total 400 Balance -400 120 Weight 124.5 kg Intake: Oral 0 120 Output: Urine 400 Other: # Voids 1 2 0 # Bowel Movements 0 1 - Labs CBC & Chem 7: 02/21/21 18:30 02/23/21 07:38 Labs: Abnormal Lab Results - Last 24 Hours (Table) 02/23/21 Range/Units 07:38 BUN 51 H (7-17) mg/dL Glucose 145 H (74-99) mg/dL Microbiology - Last 24 Hours (Table) 02/23/21 06:36 Urine Culture - Preliminary Urine,Voided Assessment and Plan Plan: Assessment: 1. Acute kidney injury mostly prerenal secondary to hypovolemia as well as hypotension. Creatinine 5.97 on admission - 1.02 today. Baseline creatinine near 1. UA fairly benign. No hydronephrosis noted on kidney ultrasound. 2. Benign hypertension. Controlled. 3. Pyuria. 4. Metabolic acidosis secondary to acute kidney injury. Resolved. Plan: Hep-Lock IV fluids. Encouraged oral intake. Hold off on antihypertensives as blood pressure is well controlled. Follow up outpatient in 1-2 weeks.
== END 2021-02-23 13:59 | disposition home or self-care (01) | DRG 683 ==
LOC: EC 17:20 → 3SCARD 19:46
PROVIDERS: ADMIT Internal Medicine; ATTEND Internal Medicine
DX: N17.9 Acute kidney failure, unspecified (principal); G93.49 Other encephalopathy; N39.0 Urinary tract infection, site not specified; E87.2 Acidosis; E86.0 Dehydration; E86.1 Hypovolemia; F17.200 Nicotine dependence, unspecified, uncomplicated; B18.2 Chronic viral hepatitis C; Z82.3 Family history of stroke; Z79.899 Other long term (current) drug therapy; Z79.82 Long term (current) use of aspirin; Z79.1 Long term (current) use of non-steroidal anti-inflammatories (NSAID); Z20.822 Contact with and (suspected) exposure to COVID-19; I95.9 Hypotension, unspecified; M54.9 Dorsalgia, unspecified; G89.29 Other chronic pain; F31.9 Bipolar disorder, unspecified; I10 Essential (primary) hypertension; J44.9 Chronic obstructive pulmonary disease, unspecified; F41.9 Anxiety disorder, unspecified
CPT/HCPCS: 36415; 70450; 76770; 80048; 80053; 80306; 80320; 81001; 83735; 84484; 85025; 85610; 85730; 87086; 87635; 93005; 99285

== ENCOUNTER → 2021-07-21 | Outpatient (CLI) | payer OTHER ==
[2021-07-21 23:33] LABS: Basophils # (A) 0.04 X 10*3/uL (0.00-0.10); Basophils % (A) 0.7 %; Eosinophils # (A) 0.03 X 10*3/uL (0.04-0.35); Eosinophils % (A) 0.5 %; HCT 35.4 % (37.2-46.3); HGB 11.1 g/dL (12.0-15.0); Immature Grans, Automated 0.2 %; Lymphocytes # (A) 2.92 X 10*3/uL (0.90-5.00); Lymphocytes % (A) 50.4 %; MCH 27.1 pg (27.0-32.0); MCHC 31.4 g/dL (32.0-37.0); MCV 86.6 fL (80.0-97.0); Monocytes # (A) 0.42 X 10*3/uL (0.20-1.00); Monocytes % (A) 7.3 %; NRBC Per 100 WBC 0 /100 WBCS (0.0-0.0); Neutrophils # (A) 2.37 X 10*3/uL (1.80-7.70); Neutrophils % (A) 40.9 %; Platelet Count 155 X 10*3/uL (140-440); RBC 4.09 X 10*6/uL (4.10-5.20); RDW 14.1 % (11.5-14.5); WBC 5.79 X 10*3/uL (4.50-10.00)
[2021-07-22 00:07] LABS: % Iron Saturation 20.28 (12.00-45.00); ALT 8 U/L (8-44); AST 19 U/L (13-35); Albumin 3.9 g/dL (3.8-4.9); Albumin/Globulin Ratio 1.57 (1.60-3.17); Alkaline Phosphatase 90 U/L (41-126); BUN/Creat Ratio 14.14 Ratio (12.00-20.00); Blood Urea Nitrogen 11.4 mg/dL (9.0-27.0); Calcium 8.8 mg/dL (8.7-10.3); Carbon Dioxide 23.7 mmol/L (20.0-27.5); Chloride 105 mmol/L (96-109); Ferritin 35.9 ng/mL (10.0-291.0); Globulin 2.5 g/dL (1.6-3.3); Glucose 106 mg/dL (70-110); Iron 72 ug/dL (50-170); Non-African American GFR(CKD) 82.8 (60.0-200.0); Sodium 140 mmol/L (135-145); Total Bilirubin <0.15 mg/dL (0.30-1.20); Total Iron Binding Capacity 356 ug/dL (228-460); Total Protein 6.4 g/dL (6.2-8.2)
[2021-07-22 00:10] LABS: Urine Creatinine 74.6 mg/dL (28.0-217.0)
[2021-07-22 00:59] LABS: Appearance,Urine Clear (Clear); Bacteria,Urine None Seen /HPF (None Seen); Bilirubin,Urine Negative (Negative); Blood,Urine Negative (Negative); Color,Urine Yellow (Yellow); Ketones,Urine Negative (Negative); Leukocyte Esterase,Urine Trace (Negative); Nitrite,Urine Negative (Negative); PH, Urine 6.5 (5.0-8.0); Protein,Urine Negative (Negative); RBC,Urine 0-2 /HPF (0-2); Specific Gravity,Urine 1.013 (1.001-1.030); Urobilinogen,Urine 0.2 (0.2,1.0); WBC,Urine 0-5 /HPF (0-5)
== END | disposition home or self-care (01) ==
LOC: LABWHC1 13:52
PROVIDERS: ATTEND Nurse Practitioner Family
DX: N17.9 Acute kidney failure, unspecified (principal); N39.0 Urinary tract infection, site not specified; D64.9 Anemia, unspecified
CPT/HCPCS: 36415; 80053; 81001; 82043; 82570; 82728; 83540; 83550; 85025; 87086

== ENCOUNTER → 2021-08-31 | Outpatient (CLI) | payer OTHER ==
--- NOTE | 2021-08-31 16:57 | XR ---
EXAMINATION TYPE: XR chest 2V DATE OF EXAM: 08/31/2021 COMPARISON: X-ray dated 01/25/2021 HISTORY: Rule out pneumonia. History of Covid 19. TECHNIQUE: Frontal and lateral views of the chest are obtained. FINDINGS: Grossly unremarkable lungs. No pleural effusion or pneumothorax. No cardiomegaly. Suspected subtle fr acture of the posterior axillary aspect of the right ninth rib, not well appreciated previously, whic h could be acute or chronic, please correlate clinically. IMPRESSION: Questionable subtle fracture of the right ninth rib as described above, please correlate clinically.
== END | disposition home or self-care (01) ==
LOC: RADXRMAIN 12:32
PROVIDERS: ATTEND Registered Nurse
DX: J44.9 Chronic obstructive pulmonary disease, unspecified (principal); Z86.16 Personal history of COVID-19
CPT/HCPCS: 71046

== ENCOUNTER 2021-09-28 11:26 | Emergency (ER) | payer OTHER ==
[2021-09-28 12:08] VITALS: BP 166/97; PULSE 82; RESP 16; TEMP 97.8
[2021-09-28] MEDS ORDERED: IBUPROFEN 800 MG TAB PO STA (12:34)
--- NOTE | 2021-09-28 12:36 | ED ---
General Adult HPI - General Chief complaint: Extremity Problem,Nontraumatic Stated complaint: Rt foot pain/swelling Time Seen by Provider: 09/28/21 12:12 Source: patient Mode of arrival: ambulatory Limitations: no limitations - History of Present Illness Initial comments: Dictation was produced using [employer] dictation software. please excuse any gra mmatical, word or spelling errors. Chief Complaint: 55-year-old female presents to emergency department for right third toe pain and right foot pain History of Present Illness: Is 55-year-old female she was brought into the emergency department from [facility]. Patient's currently trying to recover from a crack addiction. Over the last 48 hours she noted a blister forming over her third digit. States that the blister started to increase leading to distal foot pain. Patient has any fever or constitutional symptoms. She has no history of diabetes she has no chronic wounds or has suffered any severe infections in the past. Denies any numbness to the foot. The ROS documented in this emergency department record has been reviewed and confirmed by me. Those systems with pertinent positive or negative responses have been documented in the HPI. All other systems are other negative and/or noncontributory. PHYSICAL EXAM: General Impression: Alert and oriented x3, not in acute distress HEENT: Normocephalic atraumatic, extra-ocular movements intact, pupils equal and reactive to light bilaterally, mucous membranes moist. Cardiovascular: Heart regular rate and rhythm Chest: Able to complete full sentences, no retractions, no tachypnea Abdomen: abdomen soft, non-tender, non-distended, no organomegaly Musculoskeletal: Pulses present and equal in all extremities, no peripheral edema Motor: no focal deficits noted Neurological: CN II-XII grossly intact, no focal motor or sensory deficits noted Skin: Intact with no visualized rashes Psych: Normal affect and mood Right foot: There is a 1 x 0.5 cm blister over the dorsal aspect of the third toe. There is some very faint erythema that spreads to the skin over the dorsal metatarsal heads. Blisters intact without any drainage. ED course: 55-year-old female presents emergency Department with atraumatic right foot and right third toe pain or there is blister overlying the third toe. Vital signs upon arrival are within acceptable limits. Laboratory evaluation obtained. CBC unremarkable. Metabolic panel shows sodium 120, rest of vital signs within acceptable limits. C-reactive protein is ne gative. ESR is within acceptable limits. X-ray shows soft tissue swelling. Patient's symptoms likely secondary to in causing blister. Suspect patient has ill fitting footwear. Nonetheless patient will be trialed on a trial of Keflex. - Related Data Home Medications Medication Instructions Recorded Confirmed Aspirin EC [Ecotrin Low Dose] 81 mg PO DAILY 05/29/19 02/21/21 lisinopriL 20 mg PO DAILY 05/29/19 02/21/21 Butalb/APAP/Caff 50-325-40Mg 1 tab PO DAILY PRN 01/25/21 02/21/21 [Fioricet 50-325-40] Cetirizine HCl [Zyrtec] 10 mg PO DAILY 01/25/21 02/21/21 Divalproex ER [Depakote ER] 250 mg PO BID 01/25/21 02/21/21 Folic Acid 1 mg PO DAILY 01/25/21 02/21/21 Pregabalin [Lyrica] 150 mg PO TID 01/25/21 02/21/21 tiZANidine HCL 4 mg PO TID PRN 01/25/21 02/21/21 Acetaminophen Tab [Tylenol] 650 mg PO Q6H PRN 09/28/21 09/28/21 Albuterol Sulfate [Proair Hfa] 1 - 2 puff INHALATION RT-Q6H PRN 09/28/21 09/28/21 Fluticasone Nasal [place] [Flonase 1 spray EA NOSTRIL DAILY 09/28/21 09/28/21 Nasal [place]] Fluticasone Propionate [Flovent 1 puff INHALATION RT-DAILY 09/28/21 09/28/21 Hfa 44 mcg] Ibuprofen [Motrin] 400 mg PO Q12H PRN 09/28/21 09/28/21 hydroCHLOROthiazide [Hydrodiuril] 12.5 mg PO DAILY 09/28/21 09/28/21 Previous Rx's Medication Instructions Recorded Cephalexin [Keflex] 500 mg PO Q6HR 5 Days #20 cap 09/28/21 Allergies Allergy/AdvReac Type Severity Reaction Status Date / Time ketorolac tromethamine Allergy Rash/Hives Verified 09/28/21 13:56 [From Toradol] tramadol HCl [From Ultram] Allergy Rash/Hives Verified 09/28/21 13:56 Review of Systems ROS Statement: Those systems with pertinent positive or pertinent negative responses have been documented in the HPI. ROS Other: All systems not noted in ROS Statement are negative. Past Medical History Past Medical History: COPD, Liver Disease Additional Past Medical History / Comment(s): , hepatitis C CHRONIC PAIN History of Any Multi-Drug Resistant Organisms: None Reported Past Surgical History: Section, Orthopedic Surgery, Uterine Ablation Additional Past Surgical History / Comment(s): surgery on left ankle, rt knee surgery Past Anesthesia/Blood Transfusion Reactions: No Reported Reaction Past Psychological History: Anxiety, Bipolar, Depression Smoking Status: Current every day smoker Past Alcohol Use History: Occasional Past Drug Use History: Cocaine, Heroin, Marijuana - Past Family History Mother Family Medical History: CVA/TIA Father History Unknown: Yes Additional Family Medical History / Comment(s): FATHER STILL ALIVE LIVES IN [place] General Exam Limitations: no limitations Course Vital Signs 09/28/21 12:05 Temperature 97.8 F Pulse Rate 82 Respiratory 16 Rate Blood Pressure 166/97 O2 Sat by Pulse 99 Oximetry Medical Decision Making - Lab Data Result diagrams: 09/28/21 12:37 09/28/21 12:37 Lab Results 09/28/21 09/28/21 Range/Units 12:37 12:37 WBC 10.4 (3.8-10.6) k/uL RBC 4.08 (3.80-5.40) m/uL Hgb 11.6 (11.4-16.0) gm/dL Hct 34.7 (34.0-46.0) % MCV 85.0 (80.0-100.0) fL MCH 28.4 (25.0-35.0) pg MCHC 33.4 (31.0-37.0) g/dL RDW 13.1 (11.5-15.5) % Plt Count 192 (150-450) k/uL MPV 8.2 Neutrophils % 74 % Lymphocytes % 18 % Monocytes % 6 % Eosinophils % 1 % Basophils % 1 % Neutrophils # 7.7 (1.3-7.7) k/uL Lymphocytes # 1.8 (1.0-4.8) k/uL Monocytes # 0.6 (0-1.0) k/uL Eosinophils # 0.1 (0-0.7) k/uL Basophils # 0.1 (0-0.2) k/uL ESR 21 H (0-20) mm/hr Sodium 128 L (137-145) mmol/L Potassium 4.6 (3.5-5.1) mmol/L Chloride 95 L (98-107) mmol/L Carbon Dioxide 28 (22-30) mmol/L Anion Gap 5 mmol/L BUN 16 (7-17) mg/dL Creatinine 0.90 (0.52-1.04) mg/dL Est GFR (CKD-EPI)AfAm 84 (>60 ml/min/1.73 sqM) Est GFR (CKD-EPI)NonAf 73 (>60 ml/min/1.73 sqM) Glucose 118 H (74-99) mg/dL Calcium 9.3 (8.4-10.2) mg/dL C-Reactive Protein 0.6 (<1.0) mg/dL Disposition Clinical Impression: Foot pain Disposition: HOME SELF-CARE Condition: Good Instructions (If sedation given, give patient instructions): Blister (ED), Osteoarthritis (ED) Prescriptions: Cephalexin [Keflex] 500 mg PO Q6HR 5 Days #20 cap Is patient prescribed a controlled substance at d/c from ED?: No Referrals: [facility] [Primary Care Provider] - 1-2 days
[2021-09-28 12:50] LABS: Basophils # (A) 0.1 k/uL (0-0.2); Basophils % (A) 1 %; Eosinophils # (A) 0.1 k/uL (0-0.7); Eosinophils % (A) 1 %; HCT 34.7 % (34.0-46.0); HGB 11.6 gm/dL (11.4-16.0); Lymphocytes # (A) 1.8 k/uL (1.0-4.8); Lymphocytes % (A) 18 %; MCH 28.4 pg (25.0-35.0); MCHC 33.4 g/dL (31.0-37.0); Mean Platelet Volume 8.2; Monocytes # (A) 0.6 k/uL (0-1.0); Monocytes % (A) 6 %; Neutrophils # (A) 7.7 k/uL (1.3-7.7); Neutrophils % (A) 74 %; Platelet Count 192 k/uL (150-450); RBC 4.08 m/uL (3.80-5.40); RDW 13.1 % (11.5-15.5); WBC 10.4 k/uL (3.8-10.6)
[2021-09-28 13:14] LABS: C Reactive Protein 0.6 mg/dL (<1.0); Calcium 9.3 mg/dL (8.4-10.2); Potassium 4.6 mmol/L (3.5-5.1)
--- NOTE | 2021-09-28 13:52 | XR ---
Right foot HISTORY: Pain 3 views of the right foot MR correlation prior exam 02/03/2018 Hallux valgus deformity is noted. There is soft tissue swelling at the third digit of the right foot. No periostitis to suggest underlying osteomyelitis. Soft tissue swelling also noted medial to the fi rst metatarsophalangeal joint. No fracture or dislocation. IMPRESSION: Soft tissue swelling.
[2021-09-28 13:56] LABS: Erythrocyte Sedimentation Rate 21 mm/hr (0-20)
== END 2021-09-28 15:02 | disposition home or self-care (01) ==
LOC: EC 11:26
DX: S90.424A Blister (nonthermal), right lesser toe(s), initial encounter (principal); M79.671 Pain in right foot; J44.9 Chronic obstructive pulmonary disease, unspecified; F31.9 Bipolar disorder, unspecified; F41.9 Anxiety disorder, unspecified; F17.200 Nicotine dependence, unspecified, uncomplicated; F12.90 Cannabis use, unspecified, uncomplicated; F14.90 Cocaine use, unspecified, uncomplicated; F11.90 Opioid use, unspecified, uncomplicated; X58.XXXA Exposure to other specified factors, initial encounter; Z79.51 Long term (current) use of inhaled steroids; Z79.82 Long term (current) use of aspirin; Z79.899 Other long term (current) drug therapy
CPT/HCPCS: 36415; 80048; 85025; 85652; 86140; 99283

== ENCOUNTER → 2021-12-09 | Outpatient (CLI) | payer OTHER ==
[2021-12-09 21:57] LABS: African American GFR (CKD) 36.8 (60.0-200.0); Chol/HDL Ratio 2.59 Ratio; Glucose 84 mg/dL (70-110); LDL Cholesterol,Calculated 95.5 mg/dL (0.0-131.0); Non-African American GFR(CKD) 31.8 (60.0-200.0); VLDL Calculation 12.58 mg/dL (5.00-40.00)
== END | disposition home or self-care (01) ==
LOC: LABWHC1 12:21
PROVIDERS: ATTEND Psychiatry & Neurology Psychiatry
DX: F31.9 Bipolar disorder, unspecified (principal); Z79.899 Other long term (current) drug therapy
CPT/HCPCS: 36415; 80061; 80178; 82565; 82947; 83036; 84439; 84443; 84520

== ENCOUNTER 2021-12-14 11:06 | Inpatient (IN) | payer OTHER ==
[2021-12-14 12:53] LABS: Basophils # (A) 0.1 k/uL (0-0.2); Basophils % (A) 1 %; Eosinophils # (A) 0.2 k/uL (0-0.7); Eosinophils % (A) 2 %; HGB 10.5 gm/dL (11.4-16.0); Lymphocytes # (A) 1.8 k/uL (1.0-4.8); Lymphocytes % (A) 22 %; MCH 29.2 pg (25.0-35.0); MCHC 32.8 g/dL (31.0-37.0); MCV 89.1 fL (80.0-100.0); Mean Platelet Volume 8.2; Monocytes # (A) 0.3 k/uL (0-1.0); Monocytes % (A) 4 %; Neutrophils # (A) 5.7 k/uL (1.3-7.7); Neutrophils % (A) 69 %; Platelet Count 184 k/uL (150-450); RBC 3.59 m/uL (3.80-5.40); RDW 13.6 % (11.5-15.5); WBC 8.2 k/uL (3.8-10.6)
--- NOTE | 2021-12-14 12:54 | ED ---
General Adult HPI - General Chief complaint: Recheck/Abnormal Lab/Rx Stated complaint: Abnormal Labs Time Seen by Provider: 12/14/21 11:45 Source: patient, RN notes reviewed Mode of arrival: ambulatory Limitations: no limitations - History of Present Illness Initial comments: 56-year-old female presents emergency room with chief complaint of possible lit hium toxicity. Patient states that she 11 feel sugars been very anxious states that [facility] shoulder her lithium level was slightly elevated. She states her milligrams daily. Patient states she has severe Psychological disorder. She has any chest pain palpitations no difficulty memory. No confusion per patient. Denies any nausea vomiting diarrhea constipation. - Related Data Home Medications Medication Instructions Recorded Confirmed Aspirin EC [Ecotrin Low Dose] 81 mg PO DAILY PRN 05/29/19 12/14/21 lisinopriL 20 mg PO DAILY 05/29/19 12/14/21 Butalb/APAP/Caff 50-325-40Mg 1 tab PO Q8H PRN 01/25/21 12/14/21 [Fioricet 50-325-40] Cetirizine HCl [Zyrtec] 10 mg PO DAILY 01/25/21 12/14/21 Divalproex ER [Depakote ER] 250 mg PO BID 01/25/21 12/14/21 Folic Acid 1 mg PO DAILY 01/25/21 12/14/21 Pregabalin [Lyrica] 150 mg PO TID 01/25/21 12/14/21 tiZANidine HCL 4 mg PO TID PRN 01/25/21 12/14/21 Acetaminophen Tab [Tylenol] 650 mg PO Q6H PRN 09/28/21 12/14/21 Ibuprofen [Motrin] 400 mg PO Q12H PRN 09/28/21 12/14/21 hydroCHLOROthiazide [Hydrodiuril] 12.5 mg PO DAILY 09/28/21 12/14/21 Ziprasidone [Geodon] 80 mg PO DAILY 12/14/21 12/14/21 busPIRone HCL [Buspar] 30 mg PO BID 12/14/21 12/14/21 Allergies Allergy/AdvReac Type Severity Reaction Status Date / Time ketorolac tromethamine Allergy Rash/Hives Verified 12/14/21 12:57 [From Toradol] tramadol HCl [From Ultram] Allergy Rash/Hives Verified 12/14/21 12:57 Review of Systems ROS Statement: Those systems with pertinent positive or pertinent negative responses have been documented in the HPI. ROS Other: All systems not noted in ROS Statement are negative. Past Medical History Past Medical History: COPD, Liver Disease Additional Past Medical History / Comment(s): , hepatitis C CHRONIC PAIN History of Any Multi-Drug Resistant Organisms: None Reported Past Surgical History: Section, Orthopedic Surgery, Uterine Ablation Additional Past Surgical History / Comment(s): surgery on left ankle, rt knee surgery Past Anesthesia/Blood Transfusion Reactions: No Reported Reaction Past Psychological History: Anxiety, Bipolar, Depression Smoking Status: Current every day smoker Past Alcohol Use History: Occasional Past Drug Use History: Cocaine, Heroin, Marijuana - Past Family History Mother Family Medical History: CVA/TIA Father History Unknown: Yes Additional Family Medical History / Comment(s): FATHER STILL ALIVE LIVES IN [place] General Exam Limitations: no limitations General appearance: alert, in no apparent distress, anxious Head exam: Present: atraumatic, normocephalic, normal inspection Eye exam: Present: normal appearance, PERRL, EOMI. Absent: scleral icterus, conjunctival injection, periorbital swelling ENT exam: Present: normal exam, normal oropharynx, mucous membranes moist Neck exam: Present: normal inspection, full ROM. Absent: tenderness, meningismus, lymphadenopathy Respiratory exam: Present: normal lung sounds bilaterally. Absent: respiratory distress, wheezes, rales, rhonchi, stridor Cardiovascular Exam: Present: regular rate, normal rhythm, normal heart sounds. Absent: systolic murmur, diastolic murmur, rubs, gallop, clicks GI/Abdominal exam: Present: soft, normal bowel sounds. Absent: distended, tende rness, guarding, rebound, rigid Neurological exam: Present: alert, oriented X3 Psychiatric exam: Present: anxious Skin exam: Present: warm, dry, intact, normal color. Absent: rash Course Vital Signs 12/14/21 11:40 Temperature 98.3 F Pulse Rate 76 Respiratory 16 Rate Blood Pressure 182/109 O2 Sat by Pulse 100 Oximetry Medical Decision Making - Medical Decision Making Patient has lithium toxicity. Patient's lithium level is 2.1. Patient does have mildly elevated creatinine, potassium. [facility] Patient did receive IV fluid bolus fully monitored for recheck within normal. - Lab Data Result diagrams: 12/14/21 12:03 12/14/21 12:03 Lab Results 12/14/21 12/14/21 12/14/21 Range/Units 12:03 12:03 12:03 WBC 8.2 (3.8-10.6) k/uL RBC 3.59 L (3.80-5.40) m/uL Hgb 10.5 L (11.4-16.0) gm/dL Hct 32.0 L (34.0-46.0) % MCV 89.1 (80.0-100.0) fL MCH 29.2 (25.0-35.0) pg MCHC 32.8 (31.0-37.0) g/dL RDW 13.6 (11.5-15.5) % Plt Count 184 (150-450) k/uL MPV 8.2 Neutrophils % 69 % Lymphocytes % 22 % Monocytes % 4 % Eosinophils % 2 % Basophils % 1 % Neutrophils # 5.7 (1.3-7.7) k/uL Lymphocytes # 1.8 (1.0-4.8) k/uL Monocytes # 0.3 (0-1.0) k/uL Eosinophils # 0.2 (0-0.7) k/uL Basophils # 0.1 (0-0.2) k/uL Sodium 136 L (137-145) mmol/L Potassium 5.7 H (3.5-5.1) mmol/L Chloride 107 (98-107) mmol/L Carbon Dioxide 24 (22-30) mmol/L Anion Gap 5 mmol/L BUN 22 H (7-17) mg/dL Creatinine 1.44 H (0.52-1.04) mg/dL Est GFR (CKD-EPI)AfAm 47 (>60 ml/min/1.73 sqM) Est GFR (CKD-EPI)NonAf 41 (>60 ml/min/1.73 sqM) Glucose 90 (74-99) mg/dL Calcium 9.1 (8.4-10.2) mg/dL Urine Opiates Screen Not Detected (NotDetected) Ur Oxycodone Screen Not Detected (NotDetected) Urine Methadone Screen Not Detected (NotDetected) Ur Propoxyphene Screen Not Detected (NotDetected) Ur Barbiturates Screen Not Detected (NotDetected) U Tricyclic Antidepress Detected H (NotDetected) Ur Phencyclidine Scrn Not Detected (NotDetected) Ur Amphetamines Screen Not Detected (NotDetected) U Methamphetamines Scrn Not Detected (NotDetected) U Benzodiazepines Scrn Not Detected (NotDetected) [place] 2.1 H* mmol/L Urine Cocaine Screen Not Detected (NotDetected) U Marijuana (THC) Screen Not Detected (NotDetected) Disposition Clinical Impression: [place] toxicity, Hyperkalemia Disposition: ADMITTED IP TO THIS [facility] Condition: Fair Referrals: None,Stated [Primary Care Provider] - 1-2 days Time of Disposition: 13:56
[2021-12-14 13:03] LABS: Calcium 9.1 mg/dL (8.4-10.2); Potassium 5.7 mmol/L (3.5-5.1)
[2021-12-14 13:17] LABS: Amphetamine Screen,Urine Not Detected (NotDetected); Barbiturate Screen,Urine Not Detected (NotDetected); Benzodiazepines Screen,Urine Not Detected (NotDetected); Cocaine Screen,Urine Not Detected (NotDetected); Methadone Screen, Urine Not Detected (NotDetected); Opiate Screen,Urine Not Detected (NotDetected); Oxycodone Screen, Urine Not Detected (NotDetected); Phencyclidine Screen,Urine Not Detected (NotDetected); Tricyclic Antidepressant,Urine Detected (NotDetected); Urn Cannabinoid Scrn Not Detected (NotDetected)
[2021-12-14] MEDS ORDERED: diphenhydrAMINE 50 MG/ML 1 ML VIAL IVP STA (13:18)
[2021-12-14] MEDS ORDERED: ACETAMINOPHEN TAB 325 MG TAB PO STA (13:18)
[2021-12-14 13:22] LABS: Lithium 2.1 mmol/L
[2021-12-14] MEDS ORDERED: SODIUM CHLORIDE 0.9% 1,000 ML IV ONE (13:26)
[2021-12-14] MEDS ORDERED: SODIUM CHLORIDE 0.9% 500 ML 500 ML IV ONE (13:26)
[2021-12-14] MEDS ORDERED: ONDANSETRON 4 MG/2 ML VIAL IVP PRN (13:56)
[2021-12-14] MEDS ORDERED: NALOXONE 0.4 MG/ML 1 ML VIAL IV PRN ×2 (13:56→16:00)
[2021-12-14] MEDS ORDERED: tiZANidine 4 MG TAB PO PRN (13:57)
[2021-12-14] MEDS ORDERED: ASPIRIN 81 MG PO PRN (13:57)
[2021-12-14] MEDS ORDERED: SODIUM ZIRCONIUM CYCLOSILICATE 10 GM PACKET PO ONE (14:15)
[2021-12-14] MEDS: SODIUM CHLORIDE 0.9% 1,000 ML IV SCH (15:13)
[2021-12-14] MEDS ORDERED: hydrALAZINE HCL 20 MG/ML 1 ML VIAL IVP PRN (15:59)
[2021-12-14] MEDS: PREGABALIN 75 MG CAP PO SCH ×2 (16:01→21:05)
--- NOTE | 2021-12-14 16:10 | P.HPIM ---
History of Present Illness H&P Date: 12/14/21 Chief Complaint: lithium toxicity 56-year-old female presents emergency room from substance abuse recovery residence with chief complaint of possible lithium toxicity. States that she has been feeling weak, dizzy and incoherent. Denied fevers, chills. No chest pain or sob. No abdominal pain, nausea, vomiting or diarrhea. She states that the mental health unit checked her lithium level and it was elevated. In the ER lithium level was 2.1, Na 136, K 5.7, Cl 107, bicarb 24, BUN 22, Cr 1.44 glu 90. She was admitted for further treatment. Review of Systems Complete review of system was performed, pertinent positives per hpi, otherwise negative Past Medical History Past Medical History: COPD, Liver Disease Additional Past Medical History / Comment(s): , hepatitis C CHRONIC PAIN History of Any Multi-Drug Resistant Organisms: None Reported Past Surgical History: Section, Orthopedic Surgery, Uterine Ablation Additional Past Surgical History / Comment(s): surgery on left ankle, rt knee surgery Past Anesthesia/Blood Transfusion Reactions: No Reported Reaction Past Psychological History: Anxiety, Bipolar, Depression Smoking Status: Current every day smoker Past Alcohol Use History: Occasional Past Drug Use History: Cocaine, Heroin, Marijuana - Past Family History Mother Family Medical History: CVA/TIA Father History Unknown: Yes Additional Family Medical History / Comment(s): FATHER STILL ALIVE LIVES IN [place] Medications and Allergies Home Medications Medication Instructions Recorded Confirmed Type Aspirin EC [Ecotrin Low Dose] 81 mg PO DAILY PRN 05/29/19 12/14/21 History lisinopriL 20 mg PO DAILY 05/29/19 12/14/21 History Butalb/APAP/Caff 50-325-40Mg 1 tab PO Q8H PRN 01/25/21 12/14/21 History [Fioricet 50-325-40] Cetirizine HCl [Zyrtec] 10 mg PO DAILY 01/25/21 12/14/21 History Divalproex ER [Depakote ER] 250 mg PO BID 01/25/21 12/14/21 History Folic Acid 1 mg PO DAILY 01/25/21 12/14/21 History Pregabalin [Lyrica] 150 mg PO TID 01/25/21 12/14/21 History tiZANidine HCL 4 mg PO TID PRN 01/25/21 12/14/21 History Acetaminophen Tab [Tylenol] 650 mg PO Q6H PRN 09/28/21 12/14/21 History Ibuprofen [Motrin] 400 mg PO Q12H PRN 09/28/21 12/14/21 History hydroCHLOROthiazide [Hydrodiuril] 12.5 mg PO DAILY 09/28/21 12/14/21 History Ziprasidone [Geodon] 80 mg PO DAILY 12/14/21 12/14/21 History busPIRone HCL [Buspar] 30 mg PO BID 12/14/21 12/14/21 History Allergies Allergy/AdvReac Type Severity Reaction Status Date / Time ketorolac tromethamine Allergy Rash/Hives Verified 12/14/21 12:57 [From Toradol] tramadol HCl [From Ultram] Allergy Rash/Hives Verified 12/14/21 12:57 Physical Exam Vitals: Vital Signs Temp Pulse Resp BP Pulse Ox 12/14/21 14:00 98.1 F 66 18 159/97 100 12/14/21 11:40 98.3 F 76 16 182/109 100 Intake and Output 12/14/21 12/14/21 12/14/21 06:59 14:59 22:59 Other: Weight 61.235 kg Constitutional: No acute distress, conversant, pleasant Eyes:Anicteric sclerae, moist conjunctiva, no lid-lag, PERRLA, ENMT: Oropharynx clear, no erythema, exudates Neck: Supple, FROM, no masses, or JVD, No carotid bruits, No thyromegaly Lungs: Clear to auscultation, Clear to percussion, Normal respiratory effort, no accessory muscle use Cardiovascular: Heart regular in rate and rhythm, No murmurs, gallops, or rubs, No peripheral edema Abdominal: Soft, Nontender, no guarding, rebound or rigidity, Normoactive bowel sounds, No hepatomegaly, No splenomegaly, No palpable mass Skin: Normal temperature, tone, texture, turgor, no induration, No subcutaneous nodules, No rash, lesions, No ulcers Extremities: No digital cyanosis, No clubbing, Pedal pulses intact and symmetrical, Radial pulses intact and symmetrical, No calf tenderness Psychiatric: Alert and oriented to person, place and time, appropriate affect, intact judgement Neuro: Muscles Strength 5/5 in all 4 extremities, Sensation to light touch grossly present throughout, Cranial nerves II-XII grossly intact, no focal sensory deficits Results CBC & Chem 7: 12/14/21 12:03 12/14/21 12:03 Labs: Abnormal Lab Results - Last 24 Hours (Table) 12/14/21 12/14/21 12/14/21 Range/Units 12:03 12:03 12:03 RBC 3.59 L (3.80-5.40) m/uL Hgb 10.5 L (11.4-16.0) gm/dL Hct 32.0 L (34.0-46.0) % Sodium 136 L (137-145) mmol/L Potassium 5.7 H (3.5-5.1) mmol/L BUN 22 H (7-17) mg/dL Creatinine 1.44 H (0.52-1.04) mg/dL U Tricyclic Antidepress Detected H (NotDetected) [place] 2.1 H* mmol/L Assessment and Plan Plan: [place] toxicity IV fluids Check level in am Hold lithium SALLIE IV fluids Hold HCTZ and lisinopril Follow cr in am Hypertensive urgency BP elevated on admission, will use hydralazine prn for now Chronic COPD Hepatitis C Bipolar disorder Stable resume meds Admit to inpatient, expected length of stay more than 2 midnights.
[2021-12-14] MEDS: ACETAMINOPHEN TAB 325 MG TAB PO PRN (19:56)
[2021-12-14] MEDS: busPIRone HCl 10 MG TAB PO SCH (21:04)
[2021-12-14] MEDS: DIVALPROEX ER 250 MG TAB.ER.24H PO SCH (21:05)
[2021-12-15] MEDS: ACETAMINOPHEN TAB 325 MG TAB PO PRN ×2 (01:43→08:19)
[2021-12-15] MEDS: FOLIC ACID 1 MG TAB PO SCH (08:19)
[2021-12-15] MEDS: PREGABALIN 75 MG CAP PO SCH ×3 (08:19→21:00)
[2021-12-15] MEDS: DIVALPROEX ER 250 MG TAB.ER.24H PO SCH ×2 (08:19→20:59)
[2021-12-15] MEDS: busPIRone HCl 10 MG TAB PO SCH ×2 (08:19→20:59)
[2021-12-15] MEDS: LORATADINE 10 MG TAB PO SCH (08:19)
[2021-12-15] MEDS: SODIUM CHLORIDE 0.9% 1,000 ML IV SCH ×3 (08:21→11:51)
[2021-12-15] MEDS: ZIPRASIDONE 80 MG CAP PO SCH (08:43)
[2021-12-15] MEDS ORDERED: lisinopriL 20 MG TAB PO SCH (09:00)
[2021-12-15 10:08] LABS: Basophils # (A) 0.04 X 10*3/uL (0.00-0.10); Basophils % (A) 0.5 %; Eosinophils # (A) 0.22 X 10*3/uL (0.04-0.35); Eosinophils % (A) 2.8 %; HCT 31.9 % (37.2-46.3); HGB 9.7 g/dL (12.0-15.0); Immature Grans, Automated 0.4 %; Lymphocytes # (A) 2.17 X 10*3/uL (0.90-5.00); Lymphocytes % (A) 27.8 %; MCH 27.2 pg (27.0-32.0); MCHC 30.4 g/dL (32.0-37.0); MCV 89.4 fL (80.0-97.0); Mean Platelet Volume 11.3 fL (9.5-12.2); Monocytes # (A) 0.45 X 10*3/uL (0.20-1.00); Monocytes % (A) 5.8 %; NRBC Per 100 WBC 0 /100 WBCS (0.0-0.0); Neutrophils # (A) 4.89 X 10*3/uL (1.80-7.70); Neutrophils % (A) 62.7 %; Platelet Count 188 X 10*3/uL (140-440); RBC 3.57 X 10*6/uL (4.10-5.20); RDW 14.3 % (11.5-14.5)
[2021-12-15 12:20] LABS: ALT 19 U/L (8-44); AST 22 U/L (13-35); African American GFR (CKD) 58.9 (60.0-200.0); Albumin 4.2 g/dL (3.8-4.9); Albumin/Globulin Ratio 1.83 (1.60-3.17); Alkaline Phosphatase 105 U/L (41-126); BUN/Creat Ratio 12.83 Ratio (12.00-20.00); Blood Urea Nitrogen 15.4 mg/dL (9.0-27.0); Calcium 9.1 mg/dL (8.7-10.3); Carbon Dioxide 17.8 mmol/L (20.0-27.5); Chloride 107 mmol/L (96-109); Globulin 2.3 g/dL (1.6-3.3); Glucose 98 mg/dL (70-110); Non-African American GFR(CKD) 50.8 (60.0-200.0); Potassium 5.2 mmol/L (3.5-5.5); Sodium 136 mmol/L (135-145); Total Bilirubin <0.15 mg/dL (0.30-1.20); Total Protein 6.5 g/dL (6.2-8.2)
--- NOTE | 2021-12-15 13:39 | P.PN ---
Subjective Progress Note Date: 12/15/21 Principal diagnosis: dizziness patient still with headaches today. No blurred vision. No dizziness, no focal weakness or numbness. Objective - Vital Signs Vital signs: Vital Signs Temp 98.5 F 12/15/21 08:00 Pulse 69 12/15/21 08:00 Resp 16 12/15/21 08:00 BP 158/96 12/15/21 08:00 Pulse Ox 100 12/15/21 08:00 FiO2 Intake & Output 12/14/21 12/15/21 12/15/21 18:59 06:59 18:59 Intake Total 1080 Balance 1080 Weight 61.235 kg Intake: Oral 1080 Other: # Voids 2 3 - Exam Constitutional: No acute distress, conversant, pleasant Eyes:Anicteric sclerae, moist conjunctiva, no lid-lag, PERRLA, ENMT: Oropharynx clear, no erythema, exudates Neck: Supple, FROM, no masses, or JVD, No carotid bruits, No thyromegaly Lungs: Clear to auscultation, Clear to percussion, Normal respiratory effort, no accessory muscle use Cardiovascular: Heart regular in rate and rhythm, No murmurs, gallops, or rubs, No peripheral edema Abdominal: Soft, Nontender, no guarding, rebound or rigidity, Normoactive bowel sounds, No hepatomegaly, No splenomegaly, No palpable mass Skin: Normal temperature, tone, texture, turgor, no induration, No subcutaneous nodules, No rash, lesions, No ulcers Extremities: No digital cyanosis, No clubbing, Pedal pulses intact and symmetrical, Radial pulses intact and symmetrical, No calf tenderness Psychiatric: Alert and oriented to person, place and time, appropriate affect, intact judgement Neuro: Muscles Strength 5/5 in all 4 extremities, Sensation to light touch grossly present throughout, Cranial nerves II-XII grossly intact, no focal sensory deficits - Labs CBC & Chem 7: 12/15/21 05:42 12/15/21 05:42 Labs: Abnormal Lab Results - Last 24 Hours (Table) 12/15/21 12/15/21 Range/Units 05:42 05:42 RBC 3.57 L (4.10-5.20) X 10*6/uL Hgb 9.7 L (12.0-15.0) g/dL Hct 31.9 L (37.2-46.3) % MCHC 30.4 L (32.0-37.0) g/dL Carbon Dioxide 17.8 L (20.0-27.5) mmol/L Est GFR (CKD-EPI)AfAm 58.9 L (60.0-200.0) Est GFR (CKD-EPI)NonAf 50.8 L (60.0-200.0) Total Bilirubin <0.15 L (0.30-1.20) mg/dL [place] 1.80 H (0.50-1.20) mmol/L Assessment and Plan Plan: [place] toxicity Continue IV fluids Level decreasing, will repeat in am SALLIE Improved, continue IV fluids Hold HCTZ and lisinopril Follow cr in am Hypertensive urgency BP elevated on admission, will use hydralazine prn for now Chronic COPD Hepatitis C Bipolar disorder Stable resume meds
[2021-12-16] MEDS: ACETAMINOPHEN TAB 325 MG TAB PO PRN ×2 (02:03→08:11)
[2021-12-16 02:46] VITALS: RESP 16
[2021-12-16] MEDS ORDERED: hydrALAZINE HCL 25 MG TAB PO STA (03:22)
[2021-12-16] MEDS: ZIPRASIDONE 80 MG CAP PO SCH (08:12)
[2021-12-16] MEDS: DIVALPROEX ER 250 MG TAB.ER.24H PO SCH (08:12)
[2021-12-16] MEDS: PREGABALIN 75 MG CAP PO SCH (08:12)
[2021-12-16] MEDS: LORATADINE 10 MG TAB PO SCH (08:12)
[2021-12-16] MEDS: busPIRone HCl 10 MG TAB PO SCH (08:12)
[2021-12-16] MEDS: FOLIC ACID 1 MG TAB PO SCH (08:12)
[2021-12-16 08:32] VITALS: BP 180/93; PULSE 74; TEMP 98.4
[2021-12-16 10:45] LABS: HCT 35.7 % (37.2-46.3); HGB 11.1 g/dL (12.0-15.0); MCH 27.3 pg (27.0-32.0); MCHC 31.1 g/dL (32.0-37.0); MCV 87.7 fL (80.0-97.0); Mean Platelet Volume 10.8 fL (9.5-12.2); NRBC Per 100 WBC 0 /100 WBCS (0.0-0.0); Platelet Count 219 X 10*3/uL (140-440); RBC 4.07 X 10*6/uL (4.10-5.20); RDW 14.5 % (11.5-14.5); WBC 9.03 X 10*3/uL (4.50-10.00)
[2021-12-16 11:10] LABS: African American GFR (CKD) 61.4 (60.0-200.0); Anion Gap 11.6 mmol/L (10.00-18.00); BUN/Creat Ratio 11.47 Ratio (12.00-20.00); Blood Urea Nitrogen 13.3 mg/dL (9.0-27.0); Calcium 9.9 mg/dL (8.7-10.3); Carbon Dioxide 19.1 mmol/L (20.0-27.5); Magnesium 2.1 mg/dL (1.5-2.4); Phosphorus 4.2 mg/dL (2.4-5.1); Potassium 5.1 mmol/L (3.5-5.5)
[2021-12-16] MEDS: SODIUM CHLORIDE 0.9% 1,000 ML IV SCH (11:32)
[2021-12-16] MEDS ORDERED: LISINOPRIL-HCTZ 20-25 MG 1 EACH TAB PO STA (12:25)
--- NOTE | 2021-12-16 12:33 | P.DS ---
Providers Date of admission: 12/14/21 14:24 Expected date of discharge: 12/16/21 Attending physician: Eden Phillips DO Primary care physician: Stated None Hospital Course: 56-year-old female presents emergency room from substance abuse recovery residence with chief complaint of possible lithium toxicity. States that she has been feeling weak, dizzy and incoherent. Denied fevers, chills. No chest pain or sob. No abdominal pain, nausea, vomiting or diarrhea. She states that the mental health unit checked her lithium level and it was elevated. In the ER lithium level was 2.1, Na 136, K 5.7, Cl 107, bicarb 24, BUN 22, Cr 1.44 glu 90. She was admitted for further treatment. She was started on IV fluids. Was diagnosed with SALLIE and lithium toxicity, lithium was held. Also HCTZ and lisinopril were both held. BP was high through the admission and it was treated with IV hydralazine. She was having headaches today but all the rest of her symptoms improved. [place] level is back to 1.2. Another form of treatment for mood stabilization is advised. [place] is not preferred form of treatment. Time for discharge 36 min Patient Condition at Discharge: Fair Plan - Discharge Summary Discharge Rx Participant: No New Discharge Prescriptions: Continue lisinopriL 20 mg PO DAILY Aspirin EC [Ecotrin Low Dose] 81 mg PO DAILY PRN PRN Reason: Pain Pregabalin [Lyrica] 150 mg PO TID Divalproex ER [Depakote ER] 250 mg PO BID Butalb/APAP/Caff 50-325-40Mg [Fioricet 50-325-40] 1 tab PO Q8H PRN PRN Reason: Migraine Headache Cetirizine HCl [Zyrtec] 10 mg PO DAILY Folic Acid 1 mg PO DAILY tiZANidine HCL 4 mg PO TID PRN PRN Reason: Muscle Spasm Ibuprofen [Motrin] 400 mg PO Q12H PRN PRN Reason: Pain Or Fever > 100.5 hydroCHLOROthiazide [Hydrodiuril] 12.5 mg PO DAILY Acetaminophen Tab [Tylenol] 650 mg PO Q6H PRN PRN Reason: Pain Or Fever > 100.5 Ziprasidone [Geodon] 80 mg PO DAILY busPIRone HCL [Buspar] 30 mg PO BID Discharge Medication List Aspirin EC [Ecotrin Low Dose] 81 mg PO DAILY PRN 05/29/19 [History] lisinopriL 20 mg PO DAILY 05/29/19 [History] Butalb/APAP/Caff 50-325-40Mg [Fioricet 50-325-40] 1 tab PO Q8H PRN 01/25/21 [History] Cetirizine HCl [Zyrtec] 10 mg PO DAILY 01/25/21 [History] Divalproex ER [Depakote ER] 250 mg PO BID 01/25/21 [History] Folic Acid 1 mg PO DAILY 01/25/21 [History] Pregabalin [Lyrica] 150 mg PO TID 01/25/21 [History] tiZANidine HCL 4 mg PO TID PRN 01/25/21 [History] Acetaminophen Tab [Tylenol] 650 mg PO Q6H PRN 09/28/21 [History] Ibuprofen [Motrin] 400 mg PO Q12H PRN 09/28/21 [History] hydroCHLOROthiazide [Hydrodiuril] 12.5 mg PO DAILY 09/28/21 [History] Ziprasidone [Geodon] 80 mg PO DAILY 12/14/21 [History] busPIRone HCL [Buspar] 30 mg PO BID 12/14/21 [History] Follow up Appointment(s)/Referral(s): None,Stated [Primary Care Provider] - 1-2 days
== END 2021-12-16 01:01 | disposition still patient (30) | DRG 684 ==
LOC: EC 11:06 → 4SSUR 14:24
PROVIDERS: ADMIT Internal Medicine; ATTEND Internal Medicine
DX: N17.9 Acute kidney failure, unspecified (principal); T43.595A Adverse effect of other antipsychotics and neuroleptics, initial encounter; J44.9 Chronic obstructive pulmonary disease, unspecified; I16.0 Hypertensive urgency; F41.9 Anxiety disorder, unspecified; G89.29 Other chronic pain; F31.9 Bipolar disorder, unspecified; F17.210 Nicotine dependence, cigarettes, uncomplicated; Z79.82 Long term (current) use of aspirin; E87.5 Hyperkalemia; B18.2 Chronic viral hepatitis C; Z79.899 Other long term (current) drug therapy; Z82.3 Family history of stroke; X58.XXXA Exposure to other specified factors, initial encounter; Z88.5 Allergy status to narcotic agent
CPT/HCPCS: 36415; 80048; 80053; 80178; 80306; 83735; 84100; 85025; 85027; 93005; 96361; 96374; 99284

== ENCOUNTER 2021-12-19 10:12 | Inpatient (IN) | payer OTHER ==
[2021-12-19 10:43] LABS: Glucose,Whole Blood 108 mg/dL (70-110)
[2021-12-19] MEDS ORDERED: SODIUM CHLORIDE 0.9% 1,000 ML IV STA (10:43)
[2021-12-19 10:57] LABS: Basophils # (A) 0.1 k/uL (0-0.2); Basophils % (A) 1 %; Eosinophils # (A) 0.2 k/uL (0-0.7); Eosinophils % (A) 1 %; HCT 30.4 % (34.0-46.0); HGB 10.2 gm/dL (11.4-16.0); Lymphocytes # (A) 2.4 k/uL (1.0-4.8); Lymphocytes % (A) 15 %; MCH 29.4 pg (25.0-35.0); MCHC 33.5 g/dL (31.0-37.0); MCV 87.8 fL (80.0-100.0); Mean Platelet Volume 8.4; Monocytes # (A) 0.8 k/uL (0-1.0); Monocytes % (A) 5 %; Neutrophils % (A) 76 %; Platelet Count 237 k/uL (150-450); RBC 3.46 m/uL (3.80-5.40); RDW 14.5 % (11.5-15.5); WBC 15.7 k/uL (3.8-10.6)
[2021-12-19 11:07] LABS: ALT 21 U/L (4-34); AST 35 U/L (14-36); African American GFR (CKD) 9 (>60 ml/min/1.73 sqM); Albumin 4.5 g/dL (3.5-5.0); Alcohol <10 mg/dL; Alkaline Phosphatase 114 U/L (38-126); Anion Gap 19 mmol/L; Blood Urea Nitrogen 55 mg/dL (7-17); Calcium 8.6 mg/dL (8.4-10.2); Carbon Dioxide 15 mmol/L (22-30); Chloride 103 mmol/L (98-107); Glucose 93 mg/dL (74-99); Non-African American GFR(CKD) 8 (>60 ml/min/1.73 sqM); Potassium 4.5 mmol/L (3.5-5.1); Sodium 137 mmol/L (137-145); Total Bilirubin 0.5 mg/dL (0.2-1.3); Total Protein 7.5 g/dL (6.3-8.2)
[2021-12-19] MEDS ORDERED: SODIUM CHLORIDE 0.9% 500 ML 500 ML IV ONE (11:32)
--- NOTE | 2021-12-19 11:38 | ED ---
General Adult HPI - General Chief complaint: Psychiatric Symptoms Stated complaint: Mental Health Time Seen by Provider: 12/19/21 10:37 Source: patient, RN notes reviewed, old records reviewed Mode of arrival: ambulatory Limitations: no limitations - History of Present Illness Initial comments: 56-year-old female presenting for mental health evaluation. Patient states that she needs her medications adjusted. She denies suicidal thoughts or plan curr ently. In triage the patient is found to be hypotensive. She does admitted to taking too Seroquel and she admits to having some diarrhea and poor by mouth intake. She denies fever. Denies chest pain or abdominal pain. - Related Data Home Medications Medication Instructions Recorded Confirmed Aspirin EC [Ecotrin Low Dose] 81 mg PO DAILY PRN 05/29/19 12/14/21 lisinopriL 20 mg PO DAILY 05/29/19 12/14/21 Butalb/APAP/Caff 50-325-40Mg 1 tab PO Q8H PRN 01/25/21 12/14/21 [Fioricet 50-325-40] Cetirizine HCl [Zyrtec] 10 mg PO DAILY 01/25/21 12/14/21 Divalproex ER [Depakote ER] 250 mg PO BID 01/25/21 12/14/21 Folic Acid 1 mg PO DAILY 01/25/21 12/14/21 Pregabalin [Lyrica] 150 mg PO TID 01/25/21 12/14/21 tiZANidine HCL 4 mg PO TID PRN 01/25/21 12/14/21 Acetaminophen Tab [Tylenol] 650 mg PO Q6H PRN 09/28/21 12/14/21 Ibuprofen [Motrin] 400 mg PO Q12H PRN 09/28/21 12/14/21 hydroCHLOROthiazide [Hydrodiuril] 12.5 mg PO DAILY 09/28/21 12/14/21 Ziprasidone [Geodon] 80 mg PO DAILY 12/14/21 12/14/21 busPIRone HCL [Buspar] 30 mg PO BID 12/14/21 12/14/21 Allergies Allergy/AdvReac Type Severity Reaction Status Date / Time ketorolac tromethamine Allergy Rash/Hives Verified 12/14/21 12:57 [From Toradol] tramadol HCl [From Ultram] Allergy Rash/Hives Verified 12/14/21 12:57 Review of Systems ROS Statement: Those systems with pertinent positive or pertinent negative responses have been documented in the HPI. ROS Other: All systems not noted in ROS Statement are negative. Past Medical History Past Medical History: COPD, Liver Disease Additional Past Medical History / Comment(s): , hepatitis C CHRONIC PAIN History of Any Multi-Drug Resistant Organisms: None Reported Past Surgical History: Section, Orthopedic Surgery, Uterine Ablation Additional Past Surgical History / Comment(s): surgery on left ankle, rt knee surgery Past Anesthesia/Blood Transfusion Reactions: No Reported Reaction Past Psychological History: Anxiety, Bipolar, Depression Smoking Status: Current every day smoker Past Alcohol Use History: Occasional Past Drug Use History: Cocaine, Heroin, Marijuana - Past Family History Mother Family Medical History: CVA/TIA Father History Unknown: Yes Additional Family Medical History / Comment(s): FATHER STILL ALIVE LIVES IN [place] General Exam Limitations: no limitations General appearance: alert, in no apparent distress Head exam: Present: atraumatic, normocephalic Eye exam: Present: normal appearance, PERRL ENT exam: Present: mucous membranes dry Neck exam: Present: normal inspection. Absent: tenderness, meningismus Respiratory exam: Present: normal lung sounds bilaterally. Absent: respiratory distress, wheezes Cardiovascular Exam: Present: regular rate, normal rhythm GI/Abdominal exam: Present: soft. Absent: distended, tenderness, guarding Extremities exam: Present: normal inspection, normal capillary refill Neurological exam: Present: alert, oriented X3, CN II-XII intact. Absent: motor sensory deficit Psychiatric exam: Present: depressed, flat affect Skin exam: Present: warm, dry, intact. Absent: cyanosis, diaphoretic Course Vital Signs 12/19/21 12/19/21 12/19/21 10:27 10:30 11:00 Temperature 97.1 F L Pulse Rate 81 72 Respiratory 18 18 Rate Blood Pressure 54/38 119/89 65/35 O2 Sat by Pulse 98 95 Oximetry 12/19/21 12/19/21 11:19 11:40 Temperature Pulse Rate 62 72 Respiratory 18 18 Rate Blood Pressure 81/51 88/43 O2 Sat by Pulse 95 99 Oximetry EKG Findings - EKG Comments: EKG Findings:: EKG: Sinus rhythm rate of 69, TX interval 179, QRS duration 85, QTC [address] segment elevation. Medical Decision Making - Medical Decision Making 56-year-old female presenting for mental health evaluation. Upon arrival the patient has initial blood pressure in the 50s. She denies fever. She denies cough or URI symptoms. She denies dysuria. She denies abdominal pain or chest pain. She does admit to taking too Seroquel prior to arrival. She is given a liter bolus with improvement in blood pressure. She has leukocytosis of uncertain etiology. Urinalysis is pending. Blood cultures and lactic acid are ordered for the possibility of sepsis given the hypotension and leukocytosis although I feel that her symptoms may be related to hypovolemia. She is in acute renal failure with a creatinine of 6. And a BUN of 55. She will require admission for acute renal failure, hypovolemic shock, rule out sepsis. Case discussed with M[facility] - Lab Data Result diagrams: 12/19/21 10:49 12/19/21 10:49 Lab Results 12/19/21 12/19/21 12/19/21 Range/Units 10:39 10:49 10:49 WBC 15.7 H (3.8-10.6) k/uL RBC 3.46 L (3.80-5.40) m/uL Hgb 10.2 L (11.4-16.0) gm/dL Hct 30.4 L (34.0-46.0) % MCV 87.8 (80.0-100.0) fL MCH 29.4 (25.0-35.0) pg MCHC 33.5 (31.0-37.0) g/dL RDW 14.5 (11.5-15.5) % Plt Count 237 (150-450) k/uL MPV 8.4 Neutrophils % 76 % Lymphocytes % 15 % Monocytes % 5 % Eosinophils % 1 % Basophils % 1 % Neutrophils # 12.0 H (1.3-7.7) k/uL Lymphocytes # 2.4 (1.0-4.8) k/uL Monocytes # 0.8 (0-1.0) k/uL Eosinophils # 0.2 (0-0.7) k/uL Basophils # 0.1 (0-0.2) k/uL Sodium 137 (137-145) mmol/L Potassium 4.5 (3.5-5.1) mmol/L Chloride 103 (98-107) mmol/L Carbon Dioxide 15 L (22-30) mmol/L Anion Gap 19 mmol/L BUN 55 H (7-17) mg/dL Creatinine 5.78 H (0.52-1.04) mg/dL Est GFR (CKD-EPI)AfAm 9 (>60 ml/min/1.73 sqM) Est GFR (CKD-EPI)NonAf 8 (>60 ml/min/1.73 sqM) Glucose 93 (74-99) mg/dL POC Glucose (mg/dL) 108 (70-110) mg/dL POC Glu Systems Analyst Engineer ID Nicholas Fox Calcium 8.6 (8.4-10.2) mg/dL Magnesium 2.0 (1.6-2.3) mg/dL Total Bilirubin 0.5 (0.2-1.3) mg/dL AST 35 (14-36) U/L ALT 21 (4-34) U/L Alkaline Phosphatase 114 (38-126) U/L Total Protein 7.5 (6.3-8.2) g/dL Albumin 4.5 (3.5-5.0) g/dL Serum Alcohol <10 mg/dL Disposition Clinical Impression: Acute renal failure, Hypovolemic shock, Leukocytosis Disposition: ADMITTED IP TO THIS HOSP Condition: Serious Is patient prescribed a controlled substance at d/c from ED?: No Referrals: [facility] [Primary Care Provider] - 1-2 days Time of Disposition: 12:11
[2021-12-19] MEDS: SODIUM CHLORIDE 0.9% 1,000 ML IV SCH ×2 (11:51→18:30)
--- NOTE | 2021-12-19 11:54 | XR ---
EXAMINATION TYPE: XR chest 2V DATE OF EXAM: 12/19/2021 COMPARISON: Chest x-ray August 31, 2021 HISTORY: Hypotension. TECHNIQUE: Frontal and lateral views of the chest are obtained. FINDINGS: Overlying bra strap. There is mild chronic parenchymal change without suspicious new focal air space opacity, pleural effusion, or pneumothorax seen. The cardiac silhouette size remains with in normal limits. Overlying bra strap. The osseous structures are intact. IMPRESSION: No acute process.
[2021-12-19] MEDS ORDERED: cefTRIAXone IN SWFI 1,000 MG/10 ML SYRINGE IVP STA (11:58)
[2021-12-19] MEDS ORDERED: NALOXONE 0.4 MG/ML 1 ML VIAL IV PRN (12:07)
[2021-12-19 12:25] LABS: Amorphous Sediment,Urine Rare /hpf; Appearance,Urine Cloudy (Clear); Bacteria,Urine Rare /hpf; Bilirubin,Urine Negative (Negative); Blood,Urine Moderate (Negative); Color,Urine Yellow; Glucose,Urine (UA) Negative (Negative); Hyaline Casts,Urine 8 /lpf (0-2); Ketones,Urine Negative (Negative); Leukocyte Esterase,Urine Large (Negative); Mucus,Urine Rare /hpf; Nitrite,Urine Negative (Negative); PH, Urine 5.5 (5.0-8.0); Protein,Urine 1+ (Negative); RBC,Urine 3 /hpf (0-5); Specific Gravity,Urine 1.014 (1.001-1.035); Squamous Epithelial Cell,Urine 16 /hpf (0-4); Urobilinogen,Urine <2.0 mg/dL (<2.0); WBC,Urine 12 /hpf (0-5)
[2021-12-19 12:55] LABS: Amphetamine Screen,Urine Not Detected (NotDetected); Benzodiazepines Screen,Urine Not Detected (NotDetected); Cocaine Screen,Urine Not Detected (NotDetected); Opiate Screen,Urine Not Detected (NotDetected); Phencyclidine Screen,Urine Not Detected (NotDetected); Urn Cannabinoid Scrn Not Detected (NotDetected)
[2021-12-19 12:56] LABS: Barbiturate Screen,Urine Not Detected (NotDetected); Methadone Screen, Urine Not Detected (NotDetected); Oxycodone Screen, Urine Not Detected (NotDetected); Tricyclic Antidepressant,Urine Detected (NotDetected)
--- NOTE | 2021-12-19 14:02 | P.HPIM ---
History of Present Illness Chief Complaint: i felt drunk Patient is a 56-year-old female with a past medical history significant for essential hypertension, COPD, liver disease, recent lithium toxicity that presents to the hospital secondary to not feeling well and somewhat incoherent. She states feeling drunk. PER patient she was discharged on Seroquel apparently instructed to take 2 pills then titrate to 3 pills however patient went home and took 3 pills of Seroquel. Of note I do not see this on the discharge documentation medication list. Prior to arrival she admits to taking 2 pills and her anti hypertensive medication. Reviewing the patient's discharge summary I do not see Seroquel. Examination history was somewhat limited secondary to patient not feeling very well. Her blood pressure readings continue to be low map of less than 60. She is in Trendelenburg position with open IV access with normal saline. Patient denies any chest pain, shortness of breath or palpitations. Vital signs include blood pressure 74/50, map of 58, BMP reviewed creatinine elevated at 5.72 and D- 55 baseline was within normal limits on discharge. I did discuss the case with ER physician and RN. Recommend not transferring patient to medical floor map is less than 65 and advisable to monitor for 24 hours and ICU unit hemodynamic purposes. Past Medical History Past Medical History: COPD, Liver Disease Additional Past Medical History / Comment(s): , hepatitis C CHRONIC PAIN History of Any Multi-Drug Resistant Organisms: None Reported Past Surgical History: Section, Orthopedic Surgery, Uterine Ablation Additional Past Surgical History / Comment(s): surgery on left ankle, rt knee surgery Past Anesthesia/Blood Transfusion Reactions: No Reported Reaction Past Psychological History: Anxiety, Bipolar, Depression Smoking Status: Current every day smoker Past Alcohol Use History: Occasional Past Drug Use History: Cocaine, Heroin, Marijuana - Past Family History Mother Family Medical History: CVA/TIA Father History Unknown: Yes Additional Family Medical History / Comment(s): FATHER STILL ALIVE LIVES IN [place] Medications and Allergies Home Medications Medication Instructions Recorded Confirmed Type Aspirin EC [Ecotrin Low Dose] 81 mg PO DAILY PRN 05/29/19 12/19/21 History lisinopriL 20 mg PO DAILY 05/29/19 12/19/21 History Butalb/APAP/Caff 50-325-40Mg 1 tab PO Q8H PRN 01/25/21 12/19/21 History [Fioricet 50-325-40] Cetirizine HCl [Zyrtec] 10 mg PO DAILY 01/25/21 12/19/21 History Divalproex ER [Depakote ER] 250 mg PO BID 01/25/21 12/19/21 History Folic Acid 1 mg PO DAILY 01/25/21 12/19/21 History Pregabalin [Lyrica] 150 mg PO TID 01/25/21 12/19/21 History tiZANidine HCL 4 mg PO TID PRN 01/25/21 12/19/21 History Acetaminophen Tab [Tylenol] 650 mg PO Q6H PRN 09/28/21 12/19/21 History Ibuprofen [Motrin] 400 mg PO Q12H PRN 09/28/21 12/19/21 History hydroCHLOROthiazide [Hydrodiuril] 12.5 mg PO DAILY 09/28/21 12/19/21 History Ziprasidone [Geodon] 80 mg PO DAILY 12/14/21 12/19/21 History busPIRone HCL [Buspar] 30 mg PO BID 12/14/21 12/19/21 History Allergies Allergy/AdvReac Type Severity Reaction Status Date / Time ketorolac tromethamine Allergy Rash/Hives Verified 12/14/21 12:57 [From Toradol] tramadol HCl [From Ultram] Allergy Rash/Hives Verified 12/14/21 12:57 Physical Exam Vitals: Vital Signs Temp Pulse Resp BP Pulse Ox 12/19/21 12:20 74/50 12/19/21 12:00 71/48 12/19/21 11:40 72 18 88/43 99 12/19/21 11:19 62 18 81/51 95 12/19/21 11:00 72 18 65/35 95 12/19/21 10:30 119/89 12/19/21 10:27 97.1 F L 81 18 54/38 98 Intake and Output 12/18/21 12/19/21 12/19/21 22:59 06:59 14:59 Other: Weight 63.503 kg Gen. patient is awake alert oriented. Episodes of confusion noted Cardio normal S1/S2 Respiratory no wheezing or rhonchi appreciated Abdomen soft, nontender Skin normal Extremity no pitting edema noted Patient is currently in Trendelenburg position Results CBC & Chem 7: 12/19/21 10:49 12/19/21 10:49 Labs: Abnormal Lab Results - Last 24 Hours (Table) 12/19/21 12/19/21 12/19/21 Range/Units 10:49 10:49 12:03 WBC 15.7 H (3.8-10.6) k/uL RBC 3.46 L (3.80-5.40) m/uL Hgb 10.2 L (11.4-16.0) gm/dL Hct 30.4 L (34.0-46.0) % Neutrophils # 12.0 H (1.3-7.7) k/uL Carbon Dioxide 15 L (22-30) mmol/L BUN 55 H (7-17) mg/dL Creatinine 5.78 H (0.52-1.04) mg/dL Urine Appearance Cloudy H (Clear) Urine Protein 1+ H (Negative) Urine Blood Moderate H (Negative) Ur Leukocyte Esterase Large H (Negative) Urine WBC 12 H (0-5) /hpf Ur Squamous Epith Cells 16 H (0-4) /hpf Amorphous Sediment Rare H (None) /hpf Urine Bacteria Rare H (None) /hpf Hyaline Casts 8 H (0-2) /lpf Urine Mucus Rare H (None) /hpf Assessment and Plan Assessment: Assessment: #1 hypertension secondary to medication overdose versus less likely septic shock? #2 history of lithium toxicity #3 acute kidney injury secondary to above possibly #4 COPD not in Acute exacerbation #5 history of bipolar disorder #6 leukocytosis most likely reactive Plan: -Admit to stepdown versus intensive care unit depending on patient's hemodynamic state -The patient's blood pressure continues to be low map less than 65 recommend ICU level of care for at least 24 hours -Continue with IV fluids, continue with bolus NS in Trendelenburg position -Avoid use of Seroquel - this does not seem to be a medication she was discharged home on? -Recommend evaluation by psychiatry team as well -Continue with IV fluids 150 cc, currently giving a bolus of 1 L normal saline -Urine tox reviewed lithium 0.7 this is within the therapeutic range however she has been asked to discontinue. -Obtain chest x-ray, urine analysis and blood cultures, lactic acid pending -DVT prophylaxis
[2021-12-19 15:20] LABS: Basophils % (A) 0 %; Eosinophils # (A) 0.2 k/uL (0-0.7); Eosinophils % (A) 1 %; HCT 30.9 % (34.0-46.0); Hypochromasia Slight; Lymphocytes # (A) 2.4 k/uL (1.0-4.8); Lymphocytes % (A) 19 %; MCH 29.4 pg (25.0-35.0); MCHC 32.4 g/dL (31.0-37.0); MCV 90.5 fL (80.0-100.0); Monocytes # (A) 0.5 k/uL (0-1.0); Monocytes % (A) 4 %; Neutrophils # (A) 9.5 k/uL (1.3-7.7); Neutrophils % (A) 73 %; Platelet Count 211 k/uL (150-450); RBC 3.42 m/uL (3.80-5.40); RDW 14.9 % (11.5-15.5); WBC 12.9 k/uL (3.8-10.6)
[2021-12-19 15:37] LABS: Acetaminophen <10.0 ug/mL; Salicylate <1.0 mg/dL
[2021-12-19 15:38] LABS: Calcium 7.9 mg/dL (8.4-10.2); Potassium 4.3 mmol/L (3.5-5.1); Total Bilirubin 0.2 mg/dL (0.2-1.3); Total Protein 6.8 g/dL (6.3-8.2)
[2021-12-19 18:08] LABS: Glucose,Whole Blood 95 mg/dL (70-110)
[2021-12-19] MEDS: PREGABALIN 75 MG CAP PO SCH (21:18)
[2021-12-19] MEDS: tiZANidine 4 MG TAB PO PRN (21:18)
[2021-12-20] MEDS: SODIUM CHLORIDE 0.9% 1,000 ML IV SCH ×2 (02:08→16:11)
[2021-12-20] MEDS: ACETAMINOPHEN TAB 325 MG TAB PO PRN ×2 (02:09→21:06)
[2021-12-20 06:14] LABS: Albumin 3.8 g/dL (3.5-5.0); Calcium 8.7 mg/dL (8.4-10.2); Lithium 0.6 mmol/L; Potassium 4.6 mmol/L (3.5-5.1); Total Bilirubin 0.3 mg/dL (0.2-1.3); Total Protein 6.6 g/dL (6.3-8.2)
[2021-12-20 06:30] LABS: Basophils # (A) 0.1 k/uL (0-0.2); Basophils % (A) 1 %; Eosinophils # (A) 0.2 k/uL (0-0.7); Eosinophils % (A) 2 %; HCT 28.2 % (34.0-46.0); HGB 9.3 gm/dL (11.4-16.0); Hypochromasia Slight; Lymphocytes # (A) 2.4 k/uL (1.0-4.8); Lymphocytes % (A) 21 %; MCH 29.8 pg (25.0-35.0); MCHC 32.9 g/dL (31.0-37.0); MCV 90.3 fL (80.0-100.0); Mean Platelet Volume 8.2; Monocytes # (A) 0.7 k/uL (0-1.0); Monocytes % (A) 6 %; Neutrophils # (A) 7.5 k/uL (1.3-7.7); Neutrophils % (A) 66 %; Platelet Count 215 k/uL (150-450); RBC 3.12 m/uL (3.80-5.40); RDW 14.9 % (11.5-15.5); WBC 11.3 k/uL (3.8-10.6)
[2021-12-20] MEDS: PREGABALIN 75 MG CAP PO SCH ×3 (08:07→21:06)
[2021-12-20] MEDS: tiZANidine 4 MG TAB PO PRN ×2 (08:27→21:24)
--- NOTE | 2021-12-20 11:29 | XR ---
EXAMINATION TYPE: XR chest 1V portable DATE OF EXAM: 12/20/2021 11:20 AM COMPARISON: Chest radiographs from 12/19/2021 TECHNIQUE: XR chest 1V portable Portable AP radiograph of the chest. CLINICAL INDICATION:Female, 56 years old with history of dyspnea; FINDINGS: Lungs/Pleura: There is no evidence of pleural effusion, focal consolidation, or pneumothorax. Pulmonary vascularity: Unremarkable. Heart/mediastinum: Cardiomediastinal silhouette is unremarkable. Musculoskeletal: No acute osseous pathology. IMPRESSION: No acute cardiopulmonary disease/process.
[2021-12-20 11:43] LABS: C Reactive Protein 4.4 mg/dL (<1.0); Creatine Kinase 371 U/L (30-135)
--- NOTE | 2021-12-20 12:20 | US ---
EXAMINATION TYPE: US kidneys/renal and bladder DATE OF EXAM: 12/20/2021 COMPARISON: US & CT CLINICAL HISTORY: SALLIE. Abnormal labs EXAM MEASUREMENTS: Right Kidney: 10.0 x 3.8 x 4.4 cm Left Kidney: 10.7 x 4.9 x 4.5 cm Right Kidney: Appeared wnl Left Kidney: Appeared wnl, lower pole somewhat gassed out Bladder: wnl Bilateral Jets seen: No Increased heterogenous echotexture to the liver. IMPRESSION: 1. No evidence for acute process. 2. Hepatic steatosis.
--- NOTE | 2021-12-20 14:34 | P.CN ---
Psychiatric Consult - . Consult date: 12/20/21 Consult:: 12/20/21 14:34 IDENTIFYING DATA: This patient is a single, employed, 56-year-old female with a significant history of bipolar disorder and recent lithium toxicity who presents to the hospital for altered mental status HISTORY OF PRESENT ILLNESS: The patient presented to the hospital on 12/19/2021, brought into the hospital for "feeling drunk." The patient was noted to be quite altered and complaining of malaise and being incoherent. Reportedly, the patient may have overtaken her Seroquel. She was recently in the hospital on 12/14/2021 for lithium toxicity and hyperkalemia and was discharged on 12/16/2021. She reports that Dr. Sutton at [facility] started her on some Seroquel and that the Seroquel has caused her to be significantly altered. The patient reports that she is currently in treatment for bipolar disorder. When inquiring about any current active symptoms, the patient is denying any significant symptoms depression or bipolar disorder at this time. She is denying any suicidal or homicidal ideation, intention, and/or plan. She is not reporting any auditory or visual hallucinations. She is denying any paranoia or other delusions. She reports difficulty sleeping last night but states that over the past few weeks, she has been receiving approximately 8 hours of sleep. The patient is currently a resident of [facility]. She has a significant history of crack cocaine and methamphetamine abuse and states her last use was in October of 2021. The patient's home medication regimen includes geodon, depakote, and buspar however the patient appears uncertain as to what is her current re gimen. Seroquel is not listed as her home medication. The patient maintains she also stopped her lithium however during this admission continues to have a lithium level of 0.6. PAST PSYCHIATRIC HISTORY: Patient has a a history of bipolar disorder, cocaine use disorder, methamphetamine use disorder. She has had numerous psychiatric medications including Geodon, Depakote, lithium, BuSpar, and trazodone. The patient has had 1 prior psychiatric hospitalization back in 2013 on [address]. She is open with [facility]. She has had one prior attempt at suicide. PAST MEDICAL HISTORY: Past Medical History: COPD, Liver Disease Additional Past Medical History / Comment(s): , hepatitis C CHRONIC PAIN History of Any Multi-Drug Resistant Organisms: None Reported Past Surgical History: Section, Orthopedic Surgery, Uterine Ablation Additional Past Surgical History / Comment(s): surgery on left ankle, rt knee surgery Past Anesthesia/Blood Transfusion Reactions: No Reported Reaction Past Psychological History: Anxiety, Bipolar, Depression Smoking Status: Current every day smoker Past Alcohol Use History: Occasional Past Drug Use History: Cocaine, Heroin, Marijuana ALLERGIES: Ketorolac, tramadol CHEMICAL DEPENDENCY HISTORY: History of crack cocaine use and methamphetamine use. She is also a daily smoker. She denies any heavy alcohol use. FAMILY PSYCHIATRIC/SUBSTANCE USE HISTORY: Denies any significant family psychiatric history. SOCIAL HISTORY: Patient is single however has a daughter and 2 grandchildren. She reports good social support from them. She is currently employed by [employer]. MENTAL STATUS EXAM: General Appearance: Patient appears to be stated age is alert, pleasant, and cooperative. Patient appears to have fair hygiene and grooming wearing hospital gown with fair eye contact. Behavior: Patient appears to be restless displaying increased psychomotor activity. Speech: Patient's speech is fluent and nonpressured. Mood/Affect: Patient reports their mood is "I felt drunk but I feel better now", affect is expansive. Suicidality/Homicidality: Patient denies any suicidal or homicidal ideation, intention, and/or plan. Perceptions: Patient denies any visual hallucinations and denies any auditory hallucinations Though content/process: There is no evidence of any delusional thought content and thought process is linear and goal-directed. Memory and concentration: AOX3, grossly intact for the purposes of this session. Can spell "WORLD" backwards Judgment and insight: Fair IMPRESSIONS: Altered mental status - likely secondary to polypharmacy and medication side effect. Akathisia - likely secondary to antipsychotic side effect of Geodon. Bipolar disorder, as per history - patient appears to be stable at this time. Cocaine use disorder Methamphetamine use disorder PLAN: -At this time patient DOES NOT meet criteria for inpatient psychiatric admission. Currently, the patient is not presenting with any imminent risk of harm to self or others. She is not actively psychotic or manic. -Delirium precautions recommended with patient including - avoiding use of narcotics and OBSTETRICS NURSE sedatives, limit anticholinergic medications when possible, frequent re-orientation, minimize use of restraints, open window shades during the day and close them at night -Would recommend the following medication changes/additions: Hold psychiatric medications at this time. Concern for akathisia from antipsychotic medication. Concern for kidney damage from lithium. We will start trazodone 50 mg by mouth at bedtime for insomnia at this time only. -Agree with diagnostic blood workup CBC, CMP, TSH, B12, folate, lithium level, Depakote level. We will also order ammonia level. -Will continue to follow along 12/20/21 14:34
[2021-12-20] MEDS: LACTATED RINGERS 1,000 ML IV SCH ×2 (15:56→22:00)
--- NOTE | 2021-12-20 15:59 | P.PN ---
Subjective Progress Note Date: 12/20/21 History of Present Illness per H&P Chief Complaint: i felt drunk Patient is a 56-year-old female with a past medical history significant for essential hypertension, COPD, liver disease, recent lithium toxicity that presents to the hospital secondary to not feeling well and somewhat incoherent. She states feeling drunk. PER patient she was discharged on Seroquel apparently instructed to take 2 pills then titrate to 3 pills however patient went home and took 3 pills of Seroquel. Of note I do not see this on the discharge documentation medication list. Prior to arrival she admits to taking 2 pills and her anti hypertensive medication. Reviewing the patient's discharge summary I do not see Seroquel. Examination history was somewhat limited secondary to patient not feeling very well. Her blood pressure readings continue to be low map of less than 60. She is in Trendelenburg position with open IV access with normal saline. Patient denies any chest pain, shortness of breath or palpitations. Vital signs include blood pressure 74/50, map of 58, BMP reviewed creatinine elevated at 5.72 and D- 55 baseline was within normal limits on discharge. I did discuss the case with ER physician and RN. Recommend not transferring patient to medical floor map is less than 65 and advisable to monitor for 24 hours and ICU unit hemodynamic purposes. Subjectively: Patient was examined at the bedside. She is alert oriented 3. She is restless secondary to Akathisia. She denies any chest pain or shortness of breath. Her kidney function is improving. Otherwise no acute changes overnight. Physical examination: General: non toxic, no distress, appears at stated age Derm: warm, dry Head: atraumatic, normocephalic, symmetric Eyes: EOMI, no lid lag, anicteric sclera Mouth: no lip lesion, mucus membranes moist Cardiovascular: S1S2 reg, no murmur, positive posterior tibial pulse bilateral, Lungs: CTA bilateral, no rhonchi, no rales , no accessory muscle use Abdominal: soft, nontender to palpation, no guarding, no appreciable organomegaly Ext: no gross muscle atrophy, no edema, no contractures Neuro: CN II-XI grossly intact, no focal neuro deficits Psych: Alert, oriented, appropriate affect Assessment and plan: #Hypotension -Secondary to severe dehydration and possibly decreased oral intake -Improved with hydration #Acute kidney injury: -most likely prerenal azotemia secondary to severe dehydration -Improving with IV fluids -Nephrology consulted -Mildly elevated CPK level -Hepatitis panel ordered -Avoid nephrotoxic agents -Suspect underlying chronic kidney disease -Nephrology consultation was placed #Acute metabolic toxic encephalopathy -Secondary to drugs and acute renal failure -Improving #Polysubstance abuse -Cocaine use disorder and Methamphetamine use disorder #Akathisia - likely secondary to antipsychotic side effect of Geodon. #Bipolar disorder, as per history - patient appears to be stable at this time. #Polypharmacy -Old psych medications were held -Psychiatry following #COPD without exacerbation #Leukocytosis most likely reactive -Patient afebrile -Started empirically on Rocephin yesterday for possible UTI. Will discontinue antibiotic if urine cultures negative #DVT prophylaxis with subcutaneous heparin Objective - Vital Signs Vital signs: Vital Signs Temp 98.4 F 12/20/21 12:00 Pulse 86 12/20/21 12:00 Resp 10 L 12/20/21 12:00 BP 102/67 12/20/21 12:00 Pulse Ox 99 12/20/21 14:55 FiO2 Intake & Output 12/19/21 12/20/21 12/20/21 18:59 06:59 18:59 Intake Total 1170 130 Output Total 2500 Balance -1330 130 Weight 63.503 kg 63.7 kg Intake: IV 1170 130 Sodium Chloride 0.9% 1, 1170 130 000 ml @ 130 mls/hr IV . Q7H42M [facility] Rx#:[id number] Output: Urine 2500 Other: # Voids 1 # Bowel Movements 1 - Labs CBC & Chem 7: 12/20/21 05:29 12/20/21 05:29 Labs: Abnormal Lab Results - Last 24 Hours (Table) 12/20/21 12/20/21 12/20/21 Range/Units 05:29 05:29 10:57 WBC 11.3 H (3.8-10.6) k/uL RBC 3.12 L (3.80-5.40) m/uL Hgb 9.3 L (11.4-16.0) gm/dL Hct 28.2 L (34.0-46.0) % Chloride 119 H (98-107) mmol/L Carbon Dioxide 15 L (22-30) mmol/L BUN 28 H (7-17) mg/dL Creatinine 1.25 H (0.52-1.04) mg/dL Creatine Kinase 417 H 371 H (30-135) U/L C-Reactive Protein 4.4 H (<1.0) mg/dL Microbiology - Last 24 Hours (Table) 12/19/21 12:00 Blood Culture - Preliminary Blood No Growth after 24 hours 12/19/21 12:13 Blood Culture - Preliminary Blood No Growth after 24 hours 12/19/21 12:03 Urine Culture - Preliminary Urine,Voided
[2021-12-20] MEDS: HEPARIN SODIUM,PORCINE/PF 5,000 UNIT/0.5 ML SYRINGE SQ SCH (16:11)
[2021-12-20] MEDS ORDERED: traZODone HCL 50 MG TAB PO SCH (21:00)
[2021-12-21] MEDS: HEPARIN SODIUM,PORCINE/PF 5,000 UNIT/0.5 ML SYRINGE SQ SCH ×2 (00:38→08:16)
[2021-12-21 03:34] LABS: Hepatitis A Antibody IgM Nonreactive (Nonreactive); Hepatitis B Core IgM Nonreactive (Nonreactive); Hepatitis B Surface Antigen Nonreactive (Nonreactive); Hepatitis C IgG Antibody Reactive (Nonreactive)
[2021-12-21] MEDS: LACTATED RINGERS 1,000 ML IV SCH (06:39)
[2021-12-21 06:58] LABS: Basophils % (A) 1 %; Eosinophils # (A) 0.2 k/uL (0-0.7); Eosinophils % (A) 2 %; HCT 27.8 % (34.0-46.0); Hypochromasia Slight; Lymphocytes # (A) 2.1 k/uL (1.0-4.8); Lymphocytes % (A) 29 %; MCH 28.9 pg (25.0-35.0); MCHC 32.4 g/dL (31.0-37.0); MCV 89.1 fL (80.0-100.0); Monocytes # (A) 0.5 k/uL (0-1.0); Monocytes % (A) 7 %; Neutrophils # (A) 4.3 k/uL (1.3-7.7); Neutrophils % (A) 58 %; Platelet Count 223 k/uL (150-450); RBC 3.12 m/uL (3.80-5.40); RDW 14.6 % (11.5-15.5); WBC 7.4 k/uL (3.8-10.6)
[2021-12-21 07:13] LABS: ALT 25 U/L (4-34); AST 35 U/L (14-36); African American GFR (CKD) >90 (>60 ml/min/1.73 sqM); Albumin 3.9 g/dL (3.5-5.0); Alkaline Phosphatase 96 U/L (38-126); Anion Gap 6 mmol/L; Blood Urea Nitrogen 14 mg/dL (7-17); Carbon Dioxide 19 mmol/L (22-30); Chloride 116 mmol/L (98-107); Glucose 95 mg/dL (74-99); Non-African American GFR(CKD) 85 (>60 ml/min/1.73 sqM); Potassium 5.1 mmol/L (3.5-5.1); Sodium 141 mmol/L (137-145); Total Bilirubin 0.4 mg/dL (0.2-1.3); Total Protein 6.9 g/dL (6.3-8.2)
[2021-12-21] MEDS: PREGABALIN 75 MG CAP PO SCH (08:16)
[2021-12-21] MEDS: tiZANidine 4 MG TAB PO PRN (08:54)
[2021-12-21 09:08] VITALS: PULSE 77; TEMP 98.3
--- NOTE | 2021-12-21 12:41 | P.DS ---
Providers Date of admission: 12/19/21 12:07 Expected date of discharge: 12/21/21 Attending physician: Eden Phillips DO Consults: 12/20/21 10:46 Consult Physician Routine Consulting Provider: Erica Novak Consult Reason/Comments: SALLIE Do you want consulting provider notified?: Yes 12/20/21 10:53 Consult Physician Routine Consulting Provider: Chang Ferguson Consult Reason/Comments: psych medication management Do you want consulting provider notified?: Yes Primary care physician: [facility] Hospital Course: History of Present Illness per H&P Chief Complaint: i felt drunk Patient is a 56-year-old female with a past medical history significant for essential hypertension, COPD, liver disease, recent lithium toxicity that pr esents to the hospital secondary to not feeling well and somewhat incoherent. She states feeling drunk. PER patient she was discharged on Seroquel apparently instructed to take 2 pills then titrate to 3 pills however patient went home and took 3 pills of Seroquel. Of note I do not see this on the discharge documentation medication list. Prior to arrival she admits to taking 2 pills and her anti hypertensive medication. Reviewing the patient's discharge summary I do not see Seroquel. Examination history was somewhat limited secondary to patient not feeling very well. Her blood pressure readings continue to be low map of less than 60. She is in Trendelenburg position with open IV access with normal saline. Patient denies any chest pain, shortness of breath or palpitations. Vital signs include blood pressure 74/50, map of 58, BMP reviewed creatinine elevated at 5.72 and D- 55 baseline was within normal limits on discharge. I did discuss the case with ER physician and RN. Recommend not transferring patient to medical floor map is less than 65 and advisable to monitor for 24 hours and ICU unit hemodynamic purposes. Hospital course: #Hypotension -Resolved -Secondary to severe dehydration and antihypertensive medications -Improved with hydration -HILARY inhibitor and hydrochlorothiazide held on discharge #Acute kidney injury: -most likely prerenal azotemia secondary to severe dehydration -Resolved with IV fluids -Hydrochlorothiazide and lisinopril held on discharge -Nephrology consulted -Mildly elevated CPK level -Hepatitis panel ordered -Avoid nephrotoxic agents -Suspect underlying chronic kidney disease -Nephrology consultation was placed #Acute metabolic toxic encephalopathy -Secondary to drugs and acute renal failure -Resolved #Polysubstance abuse -Cocaine use disorder and Methamphetamine use disorder #Akathisia - likely secondary to antipsychotic side effect of Geodon. #Bipolar disorder, as per history - patient appears to be stable at this time. -Cleared for discharge per psychiatry #Polypharmacy -Old psych medications were held -Psychiatry following #COPD without exacerbation #Leukocytosis most likely reactive secondary to dehydration. -Patient afebrile -Resolved -Started empirically on Rocephin yesterday for possible UTI. Urine and blood culture negative to date. -Antibiotic discontinued Physical exam patient on discharge: General: non toxic, no distress, appears at stated age Derm: warm, dry Head: atraumatic, normocephalic, symmetric Eyes: EOMI, no lid lag, anicteric sclera Mouth: no lip lesion, mucus membranes moist Cardiovascular: S1S2 reg, no murmur, positive posterior tibial pulse bilateral, Lungs: CTA bilateral, no rhonchi, no rales , no accessory muscle use Abdominal: soft, nontender to palpation, no guarding, no appreciable organomegaly Ext: no gross muscle atrophy, no edema, no contractures Neuro: CN II-XI grossly intact, no focal neuro deficits Psych: Alert, oriented, appropriate affect Time spent in discharge process 35 minutes Patient Condition at Discharge: Stable Plan - Discharge Summary Discharge Rx Participant: No New Discharge Prescriptions: New traZODone HCL [Desyrel] 50 mg PO HS #30 tab Continue Aspirin EC [Ecotrin Low Dose] 81 mg PO DAILY PRN PRN Reason: Pain Pregabalin [Lyrica] 150 mg PO TID Butalb/APAP/Caff 50-325-40Mg [Fioricet 50-325-40] 1 tab PO Q8H PRN PRN Reason: Migraine Headache Cetirizine HCl [Zyrtec] 10 mg PO DAILY Folic Acid 1 mg PO DAILY tiZANidine HCL 4 mg PO TID PRN PRN Reason: Muscle Spasm Acetaminophen Tab [Tylenol] 650 mg PO Q6H PRN PRN Reason: Pain Or Fever > 100.5 Discontinued lisinopriL 20 mg PO DAILY Divalproex ER [Depakote ER] 250 mg PO BID Ibuprofen [Motrin] 400 mg PO Q12H PRN PRN Reason: Pain Or Fever > 100.5 hydroCHLOROthiazide [Hydrodiuril] 12.5 mg PO DAILY Ziprasidone [Geodon] 80 mg PO DAILY busPIRone HCL [Buspar] 30 mg PO BID Discharge Medication List Aspirin EC [Ecotrin Low Dose] 81 mg PO DAILY PRN 05/29/19 [History] Butalb/APAP/Caff 50-325-40Mg [Fioricet 50-325-40] 1 tab PO Q8H PRN 01/25/21 [History] Cetirizine HCl [Zyrtec] 10 mg PO DAILY 01/25/21 [History] Folic Acid 1 mg PO DAILY 01/25/21 [History] Pregabalin [Lyrica] 150 mg PO TID 01/25/21 [History] tiZANidine HCL 4 mg PO TID PRN 01/25/21 [History] Acetaminophen Tab [Tylenol] 650 mg PO Q6H PRN 09/28/21 [History] traZODone HCL [Desyrel] 50 mg PO HS #30 tab 12/21/21 [Rx] Follow up Appointment(s)/Referral(s): [facility] [Primary Care Provider] - 1-2 days Discharge Disposition: HOME SELF-CARE
[2021-12-21 13:35] VITALS: BP 117/81; RESP 18
--- NOTE | 2021-12-21 13:36 | P.NPCON ---
History of Present Illness - Reason for Consult acute renal failure - History of Present Illness Agent is a 56-year-old female with history of hypertension, COPD and bipolar disorder for which patient was recently started on Nexium about 2 months ago. Patient was recently hospitalized for lithium toxicity with a level of 2.1 on 12/09/2021. She was subsequently discharged home and was readmitted to the hospital yesterday with complaints of feeling drunk after she took Seroquel with the lithium. Patient complained of increased weakness as well. On this admission lithium level was 0.7. Serum creatinine was noted to be 5.7 mg/dL. Patient was started on IV fluids. Her serum creatinine improved to 0.79 today. No history of acute kidney injury previously. CK level was 417 Blood pressure was borderline the systolic around 104-1 10 mmHg. I believe it had been lower with a map of less than extremity No history of use of NSAIDs. Review of Systems As per HPI Past Medical History Past Medical History: COPD, Liver Disease Additional Past Medical History / Comment(s): , hepatitis C CHRONIC PAIN History of Any Multi-Drug Resistant Organisms: None Reported Past Surgical History: Section, Orthopedic Surgery, Uterine Ablation Additional Past Surgical History / Comment(s): surgery on left ankle, rt knee surgery Past Anesthesia/Blood Transfusion Reactions: No Reported Reaction Past Psychological History: Anxiety, Bipolar, Depression Smoking Status: Current every day smoker Past Alcohol Use History: Occasional Past Drug Use History: Cocaine, Heroin, Marijuana - Past Family History Mother Family Medical History: CVA/TIA Father History Unknown: Yes Additional Family Medical History / Comment(s): FATHER STILL ALIVE LIVES IN [place] Medications and Allergies Home Medications Medication Instructions Recorded Confirmed Type Aspirin EC [Ecotrin Low Dose] 81 mg PO DAILY PRN 05/29/19 12/19/21 History Butalb/APAP/Caff 50-325-40Mg 1 tab PO Q8H PRN 01/25/21 12/19/21 History [Fioricet 50-325-40] Cetirizine HCl [Zyrtec] 10 mg PO DAILY 01/25/21 12/19/21 History Folic Acid 1 mg PO DAILY 01/25/21 12/19/21 History Pregabalin [Lyrica] 150 mg PO TID 01/25/21 12/19/21 History tiZANidine HCL 4 mg PO TID PRN 01/25/21 12/19/21 History Acetaminophen Tab [Tylenol] 650 mg PO Q6H PRN 09/28/21 12/19/21 History traZODone HCL [Desyrel] 50 mg PO HS #30 tab 12/21/21 Rx Allergies Allergy/AdvReac Type Severity Reaction Status Date / Time ketorolac tromethamine Allergy Rash/Hives Verified 12/14/21 12:57 [From Toradol] tramadol HCl [From Ultram] Allergy Rash/Hives Verified 12/14/21 12:57 Physical Exam Vitals: Vital Signs Temp Pulse Resp BP Pulse Ox 12/21/21 09:00 77 9 L 130/82 99 12/21/21 08:00 98.3 F 101 H 41 H 126/83 99 12/21/21 07:00 93 26 H 126/83 98 12/21/21 06:00 68 17 126/83 97 12/21/21 05:00 67 24 126/83 98 12/21/21 04:00 97.7 F 61 18 126/83 97 12/21/21 01:00 66 17 164/98 97 12/21/21 00:00 65 19 164/98 98 12/20/21 23:00 78 18 164/98 100 12/20/21 22:00 94 17 164/98 99 12/20/21 21:00 90 33 H 148/95 99 12/20/21 20:00 98.7 F 76 17 148/95 99 12/20/21 19:00 77 26 H 148/95 99 12/20/21 18:00 75 20 148/95 95 12/20/21 17:00 20 148/95 95 12/20/21 16:02 98.9 F 96 16 117/58 12/20/21 15:00 70 18 117/58 99 12/20/21 14:55 99 12/20/21 14:00 117/58 98 Intake and Output 12/20/21 12/21/21 12/21/21 22:59 06:59 14:59 Intake Total 125 875 Output Total 0 Balance 125 875 Intake: IV 125 875 Lactated Ringers 1,000 ml 875 @ 125 mls/hr IV .Q8H [facility] Rx#:[id number] Sodium Chloride 0.9% 1, 125 000 ml @ 130 mls/hr IV . Q7H42M [facility] Rx#:[id number] Output: Urine 0 Other: # Voids 1 1 Weight 62.8 kg Patient is awake, comfortable, not in any acute distress. She seems a bit anxious. 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 Acute kidney injury mostly prerenal associated with hypotension and hypovolemia. No evidence of lithium toxicity. Ultrasound did not show any e vidence of hydronephrosis. 2. Recent lithium toxicity with level of 2.0 on 12/09/2021. 3. Hypotension with hypovolemia and possibly related to having taken more antihypertensive medication 4. Bipolar disorder started on lithium 2 months ago 5. COPD not in acute exacerbation. Plan: Patient is encouraged to maintain adequate oral hydration. May continue IV fluids however renal function is back to normal. UA showed 1+ protein with WBCs and leukocyte esterase. This will need to be repeated down the road previous UA was negative in July 2021 Patient is clear for discharge from nephrology standpoint. Monitor blood pressure at home if possible.
--- NOTE | 2021-12-21 14:22 | P.PN ---
Progress Note - Text Progress Note Date: 12/21/21 Interval History: Patient was seen eating her lunch and was directable and agreeable to speak with principal technical writer in her room., The patient is not endorsing any significant psychiatric pathology at this time. She is not reporting any significant symptoms of depression, anxiety, or bipolar disorder. She is not reporting any suicidal or homicidal ideation, intention, and/or plan. She is not reporting any auditory or visual hallucinations. The patient's primary concern at this time is "I feel like I'm crying a lot." When asked the context of her crying episodes, the patient does not report any abnormal or bizarre situations where crying would be inappropriate. She lists examples of emotional things that she is seeing on television. She is otherwise adherent with her medication is not reporting any significant side effects. She reports that she slept well last night. Mental Status Exam: General Appearance: [Patient appears to be stated age is alert, directable, and cooperative.] Behavior: [Patient is calmly seated without any agitated behavior.] Speech: Patient's speech is fluent and nonpressured. Mood/Affect: Mood is improving mildly, affect is congruent and constricted. Suicidality/Homicidality: Patient denies having any suicidal or homicidal ideation intent or plan. Perceptions: Patient denies any visual hallucinations [and denies any auditory hallucinations] Though content/process: [There is no evidence of any delusional thought content and thought process is linear and goal-directed.] Memory and concentration: AOX3, grossly intact for the purposes of this session Judgment and insight: Improving mildly Assessment Altered mental status appears resolved Akathisia - improved Bipolar disorder, as per history - patient appears to be stable at this time. Cocaine use disorder Methamphetamine use disorder Plan: -At this time patient DOES NOT meet criteria for inpatient psychiatric admission. She is not suicidal, homicidal, or expressing any psychotic symptoms. She appears to have the capacity to make medical decisions for herself as well as to be able to address her own ADLs. -Delirium precautions recommended with patient including - avoiding use of narcotics and SPECIAL PROJECTS COORDINATOR sedatives, limit anticholinergic medications when possible, fr equent re-orientation, minimize use of restraints, open window shades during the day and close them at night -Would recommend the following medication changes/additions: Continue trazodone 50 mg at bedtime. Recommend outpatient psychiatric follow-up. Patient would like resources for other outpatient psychiatric providers aside from [facility]. -Patient is cleared psychiatrically for discharge. Psychiatry will sign off at this time.
== END 2021-12-21 14:10 | disposition home or self-care (01) | DRG 682 ==
LOC: EC 10:12 → 3SCARD 12:07 → 2SICU 17:25
PROVIDERS: ADMIT Internal Medicine; ATTEND Internal Medicine
PROC: 05HC33Z Insertion of Infusion Device into Left Basilic Vein, Percutaneous Approach (ICD-10-PCS; principal; 2021-12-20 15:00)
DX: N17.9 Acute kidney failure, unspecified (principal); G92.8 Other toxic encephalopathy; G25.71 Drug induced akathisia; F31.9 Bipolar disorder, unspecified; B18.2 Chronic viral hepatitis C; J44.9 Chronic obstructive pulmonary disease, unspecified; F14.10 Cocaine abuse, uncomplicated; F15.10 Other stimulant abuse, uncomplicated; I95.9 Hypotension, unspecified; E86.0 Dehydration; T43.595A Adverse effect of other antipsychotics and neuroleptics, initial encounter; I10 Essential (primary) hypertension; D72.829 Elevated white blood cell count, unspecified; E86.1 Hypovolemia; G89.29 Other chronic pain; K76.9 Liver disease, unspecified; F41.9 Anxiety disorder, unspecified; F17.200 Nicotine dependence, unspecified, uncomplicated; Z71.6 Tobacco abuse counseling; Z79.82 Long term (current) use of aspirin; Z79.899 Other long term (current) drug therapy; Z88.6 Allergy status to analgesic agent; Z88.5 Allergy status to narcotic agent; Z88.8 Allergy status to other drugs, medicaments and biological substances
CPT/HCPCS: 36410; 36415; 71045; 71046; 76770; 76937; 80053; 80074; 80143; 80164; 80178; 80179; 80306; 80320; 81001; 82140; 82550; 82607; 82747; 83605; 83735; 84443; 85025; 86140; 87040; 87086; 93005; 96361; 96374; 99285

== ENCOUNTER 2022-12-04 16:20 | Emergency (ER) | payer OTHER ==
[2022-12-04] MEDS ORDERED: SODIUM CHLORIDE 0.9% 1,000 ML IV ONE (17:30)
[2022-12-04 18:14] LABS: Basophils % (A) 0 %; Eosinophils % (A) 0 %; HCT 37.4 % (34.0-46.0); HGB 12.2 gm/dL (11.4-16.0); Lymphocytes # (A) 1.5 k/uL (1.0-4.8); Lymphocytes % (A) 23 %; MCH 28.5 pg (25.0-35.0); MCHC 32.6 g/dL (31.0-37.0); MCV 87.6 fL (80.0-100.0); Mean Platelet Volume 8.1; Monocytes # (A) 0.4 k/uL (0-1.0); Monocytes % (A) 6 %; Neutrophils # (A) 4.5 k/uL (1.3-7.7); Neutrophils % (A) 68 %; Platelet Count 189 k/uL (150-450); RBC 4.28 m/uL (3.80-5.40); RDW 13.2 % (11.5-15.5); WBC 6.7 k/uL (3.8-10.6)
[2022-12-04 18:21] LABS: Amorphous Sediment,Urine Rare /hpf; Appearance,Urine Cloudy (Clear); Bacteria,Urine Rare /hpf; Bilirubin,Urine 1+ (Negative); Blood,Urine Negative (Negative); Color,Urine Yellow; Glucose,Urine (UA) Negative (Negative); Hyaline Casts,Urine 3 /lpf (0-2); Ketones,Urine 1+ (Negative); Leukocyte Esterase,Urine Small (Negative); Mucus,Urine Few /hpf; Nitrite,Urine Negative (Negative); Protein,Urine 1+ (Negative); RBC,Urine 1 /hpf (0-5); Specific Gravity,Urine 1.042 (1.001-1.035); Squamous Epithelial Cell,Urine 5 /hpf (0-4); WBC,Urine 11 /hpf (0-5)
[2022-12-04] MEDS ORDERED: MORPHINE SULFATE 2 MG/ML SYRINGE IVP ONE (18:22)
[2022-12-04 18:25] LABS: ALT 16 U/L (4-34); AST 27 U/L (14-36); African American GFR (CKD) 74 (>60 ml/min/1.73 sqM); Albumin 4.5 g/dL (3.5-5.0); Alkaline Phosphatase 65 U/L (38-126); Anion Gap 8 mmol/L; Bilirubin, Delta 0.3 mg/dL (0.0-0.2); Bilirubin,Unconjugated 0.3 mg/dL (0.0-1.1); Blood Urea Nitrogen 16 mg/dL (7-17); Carbon Dioxide 24 mmol/L (22-30); Chloride 104 mmol/L (98-107); Glucose 83 mg/dL (74-99); Non-African American GFR(CKD) 64 (>60 ml/min/1.73 sqM); Potassium 3.9 mmol/L (3.5-5.1); Sodium 136 mmol/L (137-145); Total Bilirubin 0.6 mg/dL (0.2-1.3); Total Protein 7.5 g/dL (6.3-8.2)
[2022-12-04 18:26] LABS: Partial Thromboplastin Time 26.4 sec (22.0-30.0); Prothrombin Time 10.3 sec (9.0-12.0)
--- NOTE | 2022-12-04 19:10 | ED ---
General Adult HPI - General Chief complaint: Recheck/Abnormal Lab/Rx Stated complaint: bruising Time Seen by Provider: 12/04/22 16:56 Source: patient Mode of arrival: ambulatory Limitations: no limitations - History of Present Illness Initial comments: 57-year-old female with a past medical history significant for polysubstance abuse presents the emergency department with a chief complaint of generalized presenting. She reports generalized bruising that started Sunday. She reports bruising to her face, extremities, lower extremities. She denies any injury or trauma. Denies any anticoagulant use. Denies any fever, chills, cough, shortness of breath, chest pain, palpitations, nausea, vomiting - Related Data Home Medications Medication Instructions Recorded Confirmed Aspirin EC [Ecotrin Low Dose] 81 mg PO DAILY PRN 05/29/19 12/19/21 Butalb/APAP/Caff 50-325-40Mg 1 tab PO Q8H PRN 01/25/21 12/19/21 [Fioricet 50-325-40] Cetirizine HCl [Zyrtec] 10 mg PO DAILY 01/25/21 12/19/21 Folic Acid 1 mg PO DAILY 01/25/21 12/19/21 Pregabalin [Lyrica] 150 mg PO TID 01/25/21 12/19/21 tiZANidine HCL 4 mg PO TID PRN 01/25/21 12/19/21 Acetaminophen Tab [Tylenol] 650 mg PO Q6H PRN 09/28/21 12/19/21 Previous Rx's Medication Instructions Recorded traZODone HCL [Desyrel] 50 mg PO HS #30 tab 12/21/21 Allergies Allergy/AdvReac Type Severity Reaction Status Date / Time ketorolac tromethamine Allergy Rash/Hives Verified 12/04/22 16:26 [From Toradol] tramadol HCl [From Ultram] Allergy Rash/Hives Verified 12/04/22 16:26 Review of Systems ROS Statement: Those systems with pertinent positive or pertinent negative responses have been documented in the HPI. ROS Other: All systems not noted in ROS Statement are negative. Past Medical History Past Medical History: COPD, Liver Disease Additional Past Medical History / Comment(s): , hepatitis C CHRONIC PAIN History of Any Multi-Drug Resistant Organisms: None Reported Past Surgical History: Section, Orthopedic Surgery, Uterine Ablation Additional Past Surgical History / Comment(s): surgery on left ankle, rt knee surgery Past Anesthesia/Blood Transfusion Reactions: No Reported Reaction Past Psychological History: Anxiety, Bipolar, Depression Smoking Status: Current every day smoker Past Alcohol Use History: Occasional Past Drug Use History: Cocaine, Heroin, Marijuana - Past Family History Mother Family Medical History: CVA/TIA Father History Unknown: Yes Additional Family Medical History / Comment(s): FATHER STILL ALIVE LIVES IN [place] General Exam - General Exam Comments Initial Comments: General: Alert, in no acute distress Head: atraumatic normocephalic. Eyes PERRL, EOMI intact, mucous membranes moist Respiratory: Lungs clear to auscultation bilaterally Cardiovascular: Heart rate regular rate and rhythm Abdominal: Soft without guarding or rebound Extremities: Normal inspection with full range of motion and normal capillary refill Neuroogic: alert and oriented 3, CN II-XII intact, able to ambulate with steady gait Skin: warm dry and intact with normal color, generalized areas of ecchymosis which appeared to be healing and multiple healing stages on bilateral lower extremities, right upper arm, bilateral temporal regions of the face. Limitations: no limitations Course Vital Signs 12/04/22 12/04/22 12/04/22 16:23 18:28 19:43 Temperature 98.1 F 97.8 F Pulse Rate 71 60 68 Respiratory 18 16 20 Rate Blood Pressure 143/82 111/76 125/77 O2 Sat by Pulse 96 100 97 Oximetry Medical Decision Making - Medical Decision Making Was pt. sent in by a medical professional or institution (, PA, SUPERVISING BAILIFF, urgent care, hospital, or intermediate...) When possible be specific @ -[No] Did you speak to anyone other than the patient for history (EMS, parent, family, police, friend...)? What history was obtained from this source @ -[No] Did you review nursing and triage notes (agree or disagree)? Why? @ -[I reviewed and agree with nursing and triage notes] Were old charts reviewed (outside hosp., previous admission, EMS record, old EKG, old radiological studies, urgent care reports/EKG's, intermediate records)? Report findings @ -[No old charts were reviewed] Differential Diagnosis (chest pain, altered mental status, abdominal pain women, abdominal pain men, vaginal bleeding, weakness, fever, dyspnea, syncope, headache, dizziness, GI bleed, back pain, seizure, CVA, palpatations, mental health, musculoskeletal)? @ -[not applicable] EKG interpreted by me (3pts min.). @ -[As above] X-rays interpreted by me (1pt min.). @ -[None done] CT interpreted by me (1pt min.). @ -[None done] U/S interpreted by me (1pt. min.). @ -[None done] What testing was considered but not performed or refused? (CT, X-rays, U/S, l abs)? Why? @ -[None] What meds were considered but not given or refused? Why? @ -[None] Did you discuss the management of the patient with other professionals (professionals i.e. , PA, SUPERVISING BAILIFF, lab, RT, psych nurse, nephrology social worker, windrower operator, teacher, mounted police officer, block and case maker)? Give summary @ -[No] Was smoking cessation discussed for >3mins.? @ -[No] Was critical care preformed (if so, how long)? @ -[No] Were there social determinants of health that impacted care today? How? (Homelessness, low income, unemployed, alcoholism, drug addiction, transportation, low edu. Level, literacy, decrease access to med. care, custodial, rehab)? @ -[No] Was there de-escalation of care discussed even if they declined (Discuss DNR or withdrawal of care, Hospice)? DNR status @ -[No] What co-morbidities impacted this encounter? (DM, HTN, Smoking, COPD, CAD, Cancer, CVA, ARF, Chemo, Hep., AIDS, mental health diagnosis, sleep apnea, morbid obesity)? @ -[None] Was patient admitted / discharged? Hospital course, mention meds given and route, prescriptions, significant lab abnormalities, going to OR and other p ertinent info. @ -Discharged. This is a 57-year-old female who presents the emergency department with generalized bruising. Patient had a thorough history and physical exam performed on the emergency department. Physical exam reveals generalized bruises in multiple stages of healing on lower extremities, upper extremities, torso. Patient had lab work and imaging performed which was essentially unremarkable. I discussed the results in detail the patient verbalized understanding and all questions were addressed. Return precautions were discussed at length. Patient was discharged in stable condition. Case discussed with MIKE Abdi who agrees with plan of care Undiagnosed new problem with uncertain prognosis? @ -[No] Drug Therapy requiring intensive monitoring for toxicity (Heparin, Nitro, Insuli n, Cardizem)? @ -[No] Were any procedures done? @ -[No] Diagnosis/symptom? @ -Bruising on body Acute, or Chronic, or Acute on Chronic? @ -acute Uncomplicated (without systemic symptoms) or Complicated (systemic symptoms)? @ -Uncomplicated Side effects of treatment? @ -[No] Exacerbation, Progression, or Severe Exacerbation? @ -[No] Poses a threat to life or bodily function? How? (Chest pain, USA, NC, pneumonia, PE, COPD, DKA, ARF, appy, cholecystitis, CVA, Diverticulitis, Homicidal, Suicidal, threat to staff... and all critical care pts) @ -Low likelihood - Lab Data Result diagrams: 12/04/22 17:41 12/04/22 17:41 Lab Results 12/04/22 12/04/22 12/04/22 Range/Units 17:41 17:41 17:41 WBC 6.7 (3.8-10.6) k/uL RBC 4.28 (3.80-5.40) m/uL Hgb 12.2 (11.4-16.0) gm/dL Hct 37.4 (34.0-46.0) % MCV 87.6 (80.0-100.0) fL MCH 28.5 (25.0-35.0) pg MCHC 32.6 (31.0-37.0) g/dL RDW 13.2 (11.5-15.5) % Plt Count 189 (150-450) k/uL MPV 8.1 Neutrophils % 68 % Lymphocytes % 23 % Monocytes % 6 % Eosinophils % 0 % Basophils % 0 % Neutrophils # 4.5 (1.3-7.7) k/uL Lymphocytes # 1.5 (1.0-4.8) k/uL Monocytes # 0.4 (0-1.0) k/uL Eosinophils # 0.0 (0-0.7) k/uL Basophils # 0.0 (0-0.2) k/uL PT 10.3 (9.0-12.0) sec INR 1.0 (<1.2) APTT 26.4 (22.0-30.0) sec Sodium (137-145) mmol/L Potassium (3.5-5.1) mmol/L Chloride (98-107) mmol/L Carbon Dioxide (22-30) mmol/L Anion Gap mmol/L BUN (7-17) mg/dL Creatinine (0.52-1.04) mg/dL Est GFR (CKD-EPI)AfAm (>60 ml/min/1.73 sqM) Est GFR (CKD-EPI)NonAf (>60 ml/min/1.73 sqM) Glucose (74-99) mg/dL Calcium (8.4-10.2) mg/dL Total Bilirubin (0.2-1.3) mg/dL Conjugated Bilirubin (0.0-0.3) mg/dL Unconjugated Bilirubin (0.0-1.1) mg/dL Delta Bilirubin (0.0-0.2) mg/dL AST (14-36) U/L ALT (4-34) U/L Alkaline Phosphatase (38-126) U/L Total Protein (6.3-8.2) g/dL Albumin (3.5-5.0) g/dL Urine Color Yellow Urine Appearance Cloudy H (Clear) Urine pH 6.0 (5.0-8.0) Ur Specific [place] 1.042 H (1.001-1.035) Urine Protein 1+ H (Negative) Urine Glucose (UA) Negative (Negative) Urine Ketones 1+ H (Negative) Urine Blood Negative (Negative) Urine Nitrite Negative (Negative) Urine Bilirubin 1+ H (Negative) Urine Urobilinogen 4.0 (<2.0) mg/dL Ur Leukocyte Esterase Small H (Negative) Urine RBC 1 (0-5) /hpf Urine WBC 11 H (0-5) /hpf Ur Squamous Epith Cells 5 H (0-4) /hpf Amorphous Sediment Rare H (None) /hpf Urine Bacteria Rare H (None) /hpf Hyaline Casts 3 H (0-2) /lpf Urine Mucus Few H (None) /hpf 12/04/22 Range/Units 17:41 WBC (3.8-10.6) k/uL RBC (3.80-5.40) m/uL Hgb (11.4-16.0) gm/dL Hct (34.0-46.0) % MCV (80.0-100.0) fL MCH (25.0-35.0) pg MCHC (31.0-37.0) g/dL RDW (11.5-15.5) % Plt Count (150-450) k/uL MPV Neutrophils % % Lymphocytes % % Monocytes % % Eosinophils % % Basophils % % Neutrophils # (1.3-7.7) k/uL Lymphocytes # (1.0-4.8) k/uL Monocytes # (0-1.0) k/uL Eosinophils # (0-0.7) k/uL Basophils # (0-0.2) k/uL PT (9.0-12.0) sec INR (<1.2) APTT (22.0-30.0) sec Sodium 136 L (137-145) mmol/L Potassium 3.9 (3.5-5.1) mmol/L Chloride 104 (98-107) mmol/L Carbon Dioxide 24 (22-30) mmol/L Anion Gap 8 mmol/L BUN 16 (7-17) mg/dL Creatinine 0.99 (0.52-1.04) mg/dL Est GFR (CKD-EPI)AfAm 74 (>60 ml/min/1.73 sqM) Est GFR (CKD-EPI)NonAf 64 (>60 ml/min/1.73 sqM) Glucose 83 (74-99) mg/dL Calcium 9.0 (8.4-10.2) mg/dL Total Bilirubin 0.6 (0.2-1.3) mg/dL Conjugated Bilirubin 0.0 (0.0-0.3) mg/dL Unconjugated Bilirubin 0.3 (0.0-1.1) mg/dL Delta Bilirubin 0.3 H (0.0-0.2) mg/dL AST 27 (14-36) U/L ALT 16 (4-34) U/L Alkaline Phosphatase 65 (38-126) U/L Total Protein 7.5 (6.3-8.2) g/dL Albumin 4.5 (3.5-5.0) g/dL Urine Color Urine Appearance (Clear) Urine pH (5.0-8.0) Ur Specific [place] (1.001-1.035) Urine Protein (Negative) Urine Glucose (UA) (Negative) Urine Ketones (Negative) Urine Blood (Negative) Urine Nitrite (Negative) Urine Bilirubin (Negative) Urine Urobilinogen (<2.0) mg/dL Ur Leukocyte Esterase (Negative) Urine RBC (0-5) /hpf Urine WBC (0-5) /hpf Ur Squamous Epith Cells (0-4) /hpf Amorphous Sediment (None) /hpf Urine Bacteria (None) /hpf Hyaline Casts (0-2) /lpf Urine Mucus (None) /hpf Disposition Clinical Impression: Easy bruising Disposition: TRANSFER TO PSYCH HOSP/UNIT Condition: Stable Additional Instructions: Please return to the nearest emergency department if symptoms worsen or persist Is patient prescribed a controlled substance at d/c from ED?: No Referrals: [facility] Teodoro palafox [Primary Care Provider] - 1-2 days Time of Disposition: 19:10
[2022-12-04 19:45] VITALS: BP 125/77; PULSE 68; RESP 20; TEMP 97.8
== END 2022-12-04 19:51 ==
LOC: EC 16:20
DX: R23.3 Spontaneous ecchymoses (principal); J44.9 Chronic obstructive pulmonary disease, unspecified; F41.9 Anxiety disorder, unspecified; F31.9 Bipolar disorder, unspecified; F17.200 Nicotine dependence, unspecified, uncomplicated; F12.90 Cannabis use, unspecified, uncomplicated; Z88.6 Allergy status to analgesic agent; Z88.8 Allergy status to other drugs, medicaments and biological substances; Z79.82 Long term (current) use of aspirin; Z79.899 Other long term (current) drug therapy; Y04.8XXA Assault by other bodily force, initial encounter
CPT/HCPCS: 36415; 80053; 82248; 85025; 85610; 85730; 81001; 99284; 96374; 96361; J2270

== ENCOUNTER 2023-02-07 13:30 | Emergency (ER) | payer OTHER ==
[2023-02-07] MEDS ORDERED: SODIUM CHLORIDE 0.9% 1,000 ML IV STA (14:32)
--- NOTE | 2023-02-07 14:34 | ED ---
General Adult HPI - General Chief complaint: Abdominal Pain Stated complaint: Withdrawing Time Seen by Provider: 02/07/23 13:41 Source: patient, RN notes reviewed Mode of arrival: ambulatory Limitations: no limitations - History of Present Illness Initial comments: 57-year-old female presents to the emergency department for chief complaint of abdominal pain. Patient admits to crack cocaine use. She last used this morning. She states that she was going to [facility] to detox but they sent her in because of her pain. This pain appears to be chronic in nature. Patient states that she had a bilateral oophorectomy 1 month ago and was scheduled to see her setter out today but she canceled her appointment and went to [facility] who sent her here. - Related Data Home Medications Medication Instructions Recorded Confirmed Aspirin EC [Ecotrin Low Dose] 81 mg PO DAILY PRN 05/29/19 12/19/21 Butalb/APAP/Caff 50-325-40Mg 1 tab PO Q8H PRN 01/25/21 12/19/21 [Fioricet 50-325-40] Cetirizine HCl [Zyrtec] 10 mg PO DAILY 01/25/21 12/19/21 Folic Acid 1 mg PO DAILY 01/25/21 12/19/21 Pregabalin [Lyrica] 150 mg PO TID 01/25/21 12/19/21 tiZANidine HCL 4 mg PO TID PRN 01/25/21 12/19/21 Acetaminophen Tab [Tylenol] 650 mg PO Q6H PRN 09/28/21 12/19/21 Previous Rx's Medication Instructions Recorded traZODone HCL [Desyrel] 50 mg PO HS #30 tab 12/21/21 Allergies Allergy/AdvReac Type Severity Reaction Status Date / Time ketorolac tromethamine Allergy Rash/Hives Verified 02/07/23 13:38 [From Toradol] tramadol HCl [From Ultram] Allergy Rash/Hives Verified 02/07/23 13:38 Review of Systems ROS Statement: Those systems with pertinent positive or pertinent negative responses have been documented in the HPI. ROS Other: All systems not noted in ROS Statement are negative. Past Medical History Past Medical History: COPD, Liver Disease Additional Past Medical History / Comment(s): , hepatitis C CHRONIC PAIN History of Any Multi-Drug Resistant Organisms: None Reported Past Surgical History: Section, Orthopedic Surgery, Uterine Ablation Additional Past Surgical History / Comment(s): surgery on left ankle, rt knee surgery, mary lou ovaries removed Past Anesthesia/Blood Transfusion Reactions: No Reported Reaction Past Psychological History: Anxiety, Bipolar, Depression Smoking Status: Current every day smoker Past Alcohol Use History: Occasional Past Drug Use History: Cocaine, Heroin, Marijuana - Past Family History Mother Family Medical History: CVA/TIA Father History Unknown: Yes Additional Family Medical History / Comment(s): FATHER STILL ALIVE LIVES IN [place] General Exam Limitations: no limitations General appearance: alert, appears intoxicated, other (Hyperactive) Head exam: Present: atraumatic, normocephalic, normal inspection Eye exam: Present: normal appearance, PERRL, EOMI. Absent: scleral icterus, conjunctival injection, periorbital swelling ENT exam: Present: mucous membranes dry, other (ulcer to inner lip ) Neck exam: Present: normal inspection. Absent: tenderness, meningismus, lymphadenopathy Respiratory exam: Present: normal lung sounds bilaterally. Absent: respiratory distress, wheezes, rales, rhonchi, stridor Cardiovascular Exam: Present: regular rate, normal rhythm, normal heart sounds. Absent: systolic murmur, diastolic murmur, rubs, gallop, clicks GI/Abdominal exam: Present: soft, tenderness (mild diffuse), normal bowel sounds. Absent: distended, guarding, rebound, rigid Extremities exam: Present: normal inspection, full ROM, normal capillary refill. Absent: tenderness, pedal edema, joint swelling, calf tenderness Back exam: Present: normal inspection Neurological exam: Present: alert, oriented X3 Psychiatric exam: Present: other (hyperactive) Skin exam: Present: other (ecchymosis to bilateral upper and lower extremities) Course Vital Signs 02/07/23 02/07/23 02/07/23 13:33 18:00 19:17 Temperature 98.4 F 97.9 F Pulse Rate 77 65 79 Respiratory 22 16 16 Rate Blood Pressure 147/79 120/62 118/65 O2 Sat by Pulse 98 95 99 Oximetry Medical Decision Making - Medical Decision Making Was pt. sent in by a medical professional or institution (, PA, PHONOGRAPH NEEDLE TIP MAKER, urgent care, hospital, or residential...) When possible be specific @ -No Did you speak to anyone other than the patient for history (EMS, parent, family, police, friend...)? What history was obtained from this source @ -No Did you review nursing and triage notes (agree or disagree)? Why? @ -I reviewed and agree with nursing and triage notes Were old charts reviewed (outside hosp., previous admission, EMS record, old EKG, old radiological studies, urgent care reports/EKG's, residential records)? Report findings @ -No old charts were reviewed Differential Diagnosis (chest pain, altered mental status, abdominal pain women, abdominal pain men, vaginal bleeding, weakness, fever, dyspnea, syncope, headache, dizziness, GI bleed, back pain, seizure, CVA, palpatations, mental health, musculoskeletal)? @ -Differential Abdominal Pain Women: Appendicitis, Cholecystitis, diverticulosis, ischemic bowel, pancreatitis, hepatitis, UTI, gastroenteritis, AAA, incarcerated hernia, bowel obstruction, constipation, inflammatory bowel, hepatitis, peptic ulcer disease, splenic infarction, perforated viscus, vulvitis, ovarian torsion, PID, kidney stone, placenta abruption, this is not meant to be an all-inclusive list EKG interpreted by me (3pts min.). @ -None] X-rays interpreted by me (1pt min.). @ -None done CT interpreted by me (1pt min.). @ -None done U/S interpreted by me (1pt. min.). @ -None done What testing was considered but not performed or refused? (CT, X-rays, U/S, labs)? Why? @ -None What meds were considered but not given or refused? Why? @ -None Did you discuss the management of the patient with other professionals (professionals i.e. , PA, PHONOGRAPH NEEDLE TIP MAKER, lab, RT, psych nurse, social worker assistant, supervisor rough end, teacher, court registry officer, patient case manager)? Give summary @ -No Was smoking cessation discussed for >3mins.? @ -No Was critical care preformed (if so, how long)? @ -No Were there social determinants of health that impacted care today? How? (Homelessness, low income, unemployed, alcoholism, drug addiction, transp ortation, low edu. Level, literacy, decrease access to med. care, fdc, rehab)? @ -No Was there de-escalation of care discussed even if they declined (Discuss DNR or withdrawal of care, Hospice)? DNR status @ -No What co-morbidities impacted this encounter? (DM, HTN, Smoking, COPD, CAD, Cancer, CVA, ARF, Chemo, Hep., AIDS, mental health diagnosis, sleep apnea, morbid obesity)? @ -None Was patient admitted / discharged? Hospital course, mention meds given and route, prescriptions, significant lab abnormalities, going to OR and other pertinent info. @ -Discharge. Patient sent emergency department for chief complaint of abdominal pain. She admits to crack cocaine use with last use this morning. She states that she went to check herself into [facility] today but they would not accept her before evaluation of her pain. This pain seems to be chronic in nature. She recently underwent bilateral oophorectomy and was supposed to see her setter out today but she canceled her appointment. Patient was given 1 L normal saline. Patient is also concerned for STDs. Discussed that we could test her urine for gonorrhea and chlamydia but these results will not be back today. CBC shows WBC 7.3, hemoglobin 12.0; CMP showed sodium 136, potassium 4.1, normal amylase and lipase. UA shows 1+ protein and 1+ ketones, large leukocyte esterase, Urine appears to be concentrated likely due to dehydration; urine drug screen positive for opiates, amphetamines, methamphetamines, cocaine, marijuana. Patient's friend in the room would like her to be evaluated by EPS which patient is agreeable to. Patient is not having SI, HI, hallucination, delusion. Patient will be discharged with a safety plan. She will follow with her setter out. Recommended to go back to [facility]. Patient stable at time of discharge. Case with attending, Dr. Boateng Undiagnosed new problem with uncertain prognosis? @ -No Drug Therapy requiring intensive monitoring for toxicity (Heparin, Nitro, Insulin, Cardizem)? @ -No Were any procedures done? @ -No Diagnosis/symptom? @ -abdominal pain Acute, or Chronic, or Acute on Chronic? @ -acute Uncomplicated (without systemic symptoms) or Complicated (systemic symptoms)? @ -uncomplicated Side effects of treatment? @ -No Exacerbation, Progression, or Severe Exacerbation? @ -No] Poses a threat to life or bodily function? How? (Chest pain, [place], [place], pneumonia, PE, COPD, DKA, ARF, appy, cholecystitis, CVA, Diverticulitis, Homicidal, Suicidal, threat to staff... and all critical care pts) @ -[No] - Lab Data Result diagrams: 02/07/23 14:55 02/07/23 14:55 Lab Results 02/07/23 02/07/23 02/07/23 Range/Units 14:55 14:55 14:55 WBC 7.3 (3.8-10.6) k/uL RBC 4.25 (3.80-5.40) m/uL Hgb 12.0 (11.4-16.0) gm/dL Hct 37.1 (34.0-46.0) % MCV 87.4 (80.0-100.0) fL MCH 28.3 (25.0-35.0) pg MCHC 32.4 (31.0-37.0) g/dL RDW 13.0 (11.5-15.5) % Plt Count 155 (150-450) k/uL MPV 8.5 Neutrophils % 68 % Lymphocytes % 22 % Monocytes % 7 % Eosinophils % 1 % Basophils % 0 % Neutrophils # 4.9 (1.3-7.7) k/uL Lymphocytes # 1.6 (1.0-4.8) k/uL Monocytes # 0.5 (0-1.0) k/uL Eosinophils # 0.0 (0-0.7) k/uL Basophils # 0.0 (0-0.2) k/uL Sodium 136 L (137-145) mmol/L Potassium 4.1 (3.5-5.1) mmol/L Chloride 103 (98-107) mmol/L Carbon Dioxide 22 (22-30) mmol/L Anion Gap 11 mmol/L BUN 17 (7-17) mg/dL Creatinine 0.71 (0.52-1.04) mg/dL Est GFR (CKD-EPI)AfAm >90 (>60 ml/min/1.73 sqM) Est GFR (CKD-EPI)NonAf >90 (>60 ml/min/1.73 sqM) Glucose 89 (74-99) mg/dL Calcium 8.8 (8.4-10.2) mg/dL Total Bilirubin 0.9 (0.2-1.3) mg/dL AST 42 H (14-36) U/L ALT 17 (4-34) U/L Alkaline Phosphatase 61 (38-126) U/L Total Protein 7.7 (6.3-8.2) g/dL Albumin 4.5 (3.5-5.0) g/dL Amylase 53 (30-110) U/L Lipase 31 (23-300) U/L Urine Color Yellow Urine Appearance Clear (Clear) Urine pH 6.0 (5.0-8.0) Ur Specific Odell 1.045 H (1.001-1.035) Urine Protein 1+ H (Negative) Urine Glucose (UA) Negative (Negative) Urine Ketones 1+ H (Negative) Urine Blood Negative (Negative) Urine Nitrite Negative (Negative) Urine Bilirubin 1+ H (Negative) Urine Urobilinogen 6.0 (<2.0) mg/dL Ur Leukocyte Esterase Large H (Negative) Urine RBC 5 (0-5) /hpf Urine WBC 9 H (0-5) /hpf Ur Squamous Epith Cells 7 H (0-4) /hpf Urine Bacteria Rare H (None) /hpf Hyaline Casts 3 H (0-2) /lpf Urine Mucus Few H (None) /hpf Urine Opiates Screen (NotDetected) Ur Oxycodone Screen (NotDetected) Urine Methadone Screen (NotDetected) Ur Propoxyphene Screen (NotDetected) Ur Barbiturates Screen (NotDetected) U Tricyclic Antidepress (NotDetected) Ur Phencyclidine Scrn (NotDetected) Ur Amphetamines Screen (NotDetected) U Methamphetamines Scrn (NotDetected) U Benzodiazepines Scrn (NotDetected) Urine Cocaine Screen (NotDetected) U Marijuana (THC) Screen (NotDetected) 02/07/23 Range/Units 14:55 WBC (3.8-10.6) k/uL RBC (3.80-5.40) m/uL Hgb (11.4-16.0) gm/dL Hct (34.0-46.0) % MCV (80.0-100.0) fL MCH (25.0-35.0) pg MCHC (31.0-37.0) g/dL RDW (11.5-15.5) % Plt Count (150-450) k/uL MPV Neutrophils % % Lymphocytes % % Monocytes % % Eosinophils % % Basophils % % Neutrophils # (1.3-7.7) k/uL Lymphocytes # (1.0-4.8) k/uL Monocytes # (0-1.0) k/uL Eosinophils # (0-0.7) k/uL Basophils # (0-0.2) k/uL Sodium (137-145) mmol/L Potassium (3.5-5.1) mmol/L Chloride (98-107) mmol/L Carbon Dioxide (22-30) mmol/L Anion Gap mmol/L BUN (7-17) mg/dL Creatinine (0.52-1.04) mg/dL Est GFR (CKD-EPI)AfAm (>60 ml/min/1.73 sqM) Est GFR (CKD-EPI)NonAf (>60 ml/min/1.73 sqM) Glucose (74-99) mg/dL Calcium (8.4-10.2) mg/dL Total Bilirubin (0.2-1.3) mg/dL AST (14-36) U/L ALT (4-34) U/L Alkaline Phosphatase (38-126) U/L Total Protein (6.3-8.2) g/dL Albumin (3.5-5.0) g/dL Amylase (30-110) U/L Lipase (23-300) U/L Urine Color Urine Appearance (Clear) Urine pH (5.0-8.0) Ur Specific Odell (1.001-1.035) Urine Protein (Negative) Urine Glucose (UA) (Negative) Urine Ketones (Negative) Urine Blood (Negative) Urine Nitrite (Negative) Urine Bilirubin (Negative) Urine Urobilinogen (<2.0) mg/dL Ur Leukocyte Esterase (Negative) Urine RBC (0-5) /hpf Urine WBC (0-5) /hpf Ur Squamous Epith Cells (0-4) /hpf Urine Bacteria (None) /hpf Hyaline Casts (0-2) /lpf Urine Mucus (None) /hpf Urine Opiates Screen Detected H (NotDetected) Ur Oxycodone Screen Not Detected (NotDetected) Urine Methadone Screen Not Detected (NotDetected) Ur Propoxyphene Screen Not Detected (NotDetected) Ur Barbiturates Screen Not Detected (NotDetected) U Tricyclic Antidepress Not Detected (NotDetected) Ur Phencyclidine Scrn Not Detected (NotDetected) Ur Amphetamines Screen Detected H (NotDetected) U Methamphetamines Scrn Detected H (NotDetected) U Benzodiazepines Scrn Not Detected (NotDetected) Urine Cocaine Screen Detected H (NotDetected) U Marijuana (THC) Screen Detected H (NotDetected) Disposition Clinical Impression: Abdominal discomfort, Drug abuse and dependence Disposition: HOME SELF-CARE Condition: Stable Instructions (If sedation given, give patient instructions): Chronic Abdominal Pain (ED) Additional Instructions: Follow up with your surgeon. Return to the emergency department for new or worsening symptoms. Is patient prescribed a controlled substance at d/c from ED?: No Referrals: James Coleman MD [REFERRING] - 1-2 days Forms: In Substance Abuse Facilities
[2023-02-07 15:14] LABS: Appearance,Urine Clear (Clear); Bacteria,Urine Rare /hpf; Bilirubin,Urine 1+ (Negative); Blood,Urine Negative (Negative); Color,Urine Yellow; Glucose,Urine (UA) Negative (Negative); Hyaline Casts,Urine 3 /lpf (0-2); Ketones,Urine 1+ (Negative); Leukocyte Esterase,Urine Large (Negative); Mucus,Urine Few /hpf; Nitrite,Urine Negative (Negative); Protein,Urine 1+ (Negative); RBC,Urine 5 /hpf (0-5); Specific Gravity,Urine 1.045 (1.001-1.035); Squamous Epithelial Cell,Urine 7 /hpf (0-4); WBC,Urine 9 /hpf (0-5)
[2023-02-07 15:17] LABS: Basophils % (A) 0 %; Eosinophils % (A) 1 %; HCT 37.1 % (34.0-46.0); Lymphocytes # (A) 1.6 k/uL (1.0-4.8); Lymphocytes % (A) 22 %; MCH 28.3 pg (25.0-35.0); MCHC 32.4 g/dL (31.0-37.0); MCV 87.4 fL (80.0-100.0); Mean Platelet Volume 8.5; Monocytes # (A) 0.5 k/uL (0-1.0); Monocytes % (A) 7 %; Neutrophils # (A) 4.9 k/uL (1.3-7.7); Neutrophils % (A) 68 %; Platelet Count 155 k/uL (150-450); RBC 4.25 m/uL (3.80-5.40); WBC 7.3 k/uL (3.8-10.6)
[2023-02-07] MEDS ORDERED: ACETAMINOPHEN TAB 500 MG TAB PO STA (15:17)
[2023-02-07 15:30] LABS: ALT 17 U/L (4-34); African American GFR (CKD) >90 (>60 ml/min/1.73 sqM); Amylase 53 U/L (30-110); Anion Gap 11 mmol/L; Blood Urea Nitrogen 17 mg/dL (7-17); Calcium 8.8 mg/dL (8.4-10.2); Carbon Dioxide 22 mmol/L (22-30); Chloride 103 mmol/L (98-107); Glucose 89 mg/dL (74-99); Lipase 31 U/L (23-300); Non-African American GFR(CKD) >90 (>60 ml/min/1.73 sqM); Sodium 136 mmol/L (137-145); Total Bilirubin 0.9 mg/dL (0.2-1.3)
[2023-02-07 15:32] LABS: AST 42 U/L (14-36); Albumin 4.5 g/dL (3.5-5.0); Alkaline Phosphatase 61 U/L (38-126); Potassium 4.1 mmol/L (3.5-5.1); Total Protein 7.7 g/dL (6.3-8.2)
[2023-02-07 16:50] LABS: Amphetamine Screen,Urine Detected (NotDetected); Barbiturate Screen,Urine Not Detected (NotDetected); Benzodiazepines Screen,Urine Not Detected (NotDetected); Cocaine Screen,Urine Detected (NotDetected); Methadone Screen, Urine Not Detected (NotDetected); Opiate Screen,Urine Detected (NotDetected); Oxycodone Screen, Urine Not Detected (NotDetected); Phencyclidine Screen,Urine Not Detected (NotDetected); Tricyclic Antidepressant,Urine Not Detected (NotDetected); Urn Cannabinoid Scrn Detected (NotDetected)
[2023-02-07 18:48] VITALS: RESP 16
[2023-02-07 19:18] VITALS: BP 118/65; PULSE 79; TEMP 97.9
[2023-02-08 12:58] LABS: C. trachomatis,PCR Negative (Negative)
[2023-02-08 13:05] LABS: N. gonorrhoeae,PCR Negative (Negative)
== END 2023-02-07 19:19 | disposition home or self-care (01) ==
LOC: EC 13:30
DX: F14.20 Cocaine dependence, uncomplicated (principal); R10.84 Generalized abdominal pain; R58 Hemorrhage, not elsewhere classified; J44.9 Chronic obstructive pulmonary disease, unspecified; F31.9 Bipolar disorder, unspecified; F41.9 Anxiety disorder, unspecified; F17.200 Nicotine dependence, unspecified, uncomplicated; F12.90 Cannabis use, unspecified, uncomplicated; F11.90 Opioid use, unspecified, uncomplicated; Z88.1 Allergy status to other antibiotic agents; Z88.5 Allergy status to narcotic agent; Z88.6 Allergy status to analgesic agent; Z79.82 Long term (current) use of aspirin; Z79.899 Other long term (current) drug therapy
CPT/HCPCS: 36415; 80053; 80306; 81001; 82075; 82150; 83690; 85025; 87491; 87591; 96360; 99284

== ENCOUNTER 2023-04-07 13:41 | Emergency (ER) | payer OTHER ==
[2023-04-07 13:49] VITALS: RESP 20
--- NOTE | 2023-04-07 14:45 | ED ---
General Adult HPI - General Chief complaint: Extremity Injury, Upper Stated complaint: pain in hands Time Seen by Provider: 04/07/23 14:28 Source: patient Mode of arrival: ambulatory Limitations: no limitations - History of Present Illness Initial comments: Dictation was produced using [employer] dictation software. please excuse any grammatical, word or spelling errors. Chief Complaint: 57-year-old female presents with chronic bilateral wrist pain History of Present Illness: Is a 57-year-old female she is accompanied by her friend. She states she sees a neurologist for her neuropathy. States that she is had chronic bilateral wrist pain. She also has history of carpal tunnel disease. States that she has pain in her lateral wrist which radiates down to her fingertips and her elbow. She's been wearing a carpal tunnel brace daily. She complains of tingling to all her fingers. Denies any trauma. The ROS documented in this emergency department record has been reviewed and confirmed by me. Those systems with pertinent positive or negative responses have been documented in the HPI. All other systems are other negative and/or noncontributory. - Related Data Home Medications Medication Instructions Recorded Confirmed Aspirin EC [Ecotrin Low Dose] 81 mg PO DAILY PRN 05/29/19 12/19/21 Butalb/APAP/Caff 50-325-40Mg 1 tab PO Q8H PRN 01/25/21 12/19/21 [Fioricet 50-325-40] Cetirizine HCl [Zyrtec] 10 mg PO DAILY 01/25/21 12/19/21 Folic Acid 1 mg PO DAILY 01/25/21 12/19/21 Pregabalin [Lyrica] 150 mg PO TID 01/25/21 12/19/21 tiZANidine HCL 4 mg PO TID PRN 01/25/21 12/19/21 Acetaminophen Tab [Tylenol] 650 mg PO Q6H PRN 09/28/21 12/19/21 Previous Rx's Medication Instructions Recorded traZODone HCL [Desyrel] 50 mg PO HS #30 tab 12/21/21 Allergies Allergy/AdvReac Type Severity Reaction Status Date / Time ketorolac tromethamine Allergy Rash/Hives Verified 02/07/23 13:38 [From Toradol] tramadol HCl [From Ultram] Allergy Rash/Hives Verified 02/07/23 13:38 Review of Systems ROS Statement: Those systems with pertinent positive or pertinent negative responses have been documented in the HPI. ROS Other: All systems not noted in ROS Statement are negative. Past Medical History Past Medical History: COPD, Liver Disease Additional Past Medical History / Comment(s): , hepatitis C CHRONIC PAIN History of Any Multi-Drug Resistant Organisms: None Reported Past Surgical History: Section, Orthopedic Surgery, Uterine Ablation Additional Past Surgical History / Comment(s): surgery on left ankle, rt knee surgery, mary lou ovaries removed Past Anesthesia/Blood Transfusion Reactions: No Reported Reaction Past Psychological History: Anxiety, Bipolar, Depression Smoking Status: Current every day smoker Past Alcohol Use History: Occasional Past Drug Use History: Cocaine, Heroin, Marijuana - Past Family History Mother Family Medical History: CVA/TIA Father History Unknown: Yes Additional Family Medical History / Comment(s): FATHER STILL ALIVE LIVES IN [place] General Exam - General Exam Comments Initial Comments: PHYSICAL EXAM: General Impression: Alert and oriented x3, not in acute distress HEENT: Normocephalic atraumatic, extra-ocular movements intact, pupils equal and reactive to light bilaterally, mucous membranes moist. Cardiovascular: Heart regular rate and rhythm Chest: Able to complete full sentences, no retractions, no tachypnea Abdomen: abdomen soft, non-tender, non-distended, no organomegaly Musculoskeletal: Pulses present and equal in all extremities, no peripheral edema Bilateral hands: Atraumatic, no gross deformity, neurovascularly intact Motor: no focal deficits noted Neurological: CN II-XII grossly intact, no focal motor or sensory deficits noted Skin: Intact with no visualized rashes Psych: Normal affect and mood Limitations: no limitations Course Vital Signs 04/07/23 13:44 Temperature 98 F Pulse Rate 81 Respiratory 20 Rate Blood Pressure 163/70 O2 Sat by Pulse 98 Oximetry Medical Decision Making - Medical Decision Making Was pt. sent in by a medical professional or institution (, PA, MONITORING SPECIALIST, urgent care, hospital, or shelter...) When possible be specific @ -No Did you speak to anyone other than the patient for history (EMS, parent, family, police, friend...)? What history was obtained from this source @ -No Did you review nursing and triage notes (agree or disagree)? Why? @ -I reviewed and agree with nursing and triage notes Were old charts reviewed (outside hosp., previous admission, EMS record, old EKG, old radiological studies, urgent care reports/EKG's, shelter records)? Report findings @ -No old charts were reviewed Differential Diagnosis (chest pain, altered mental status, abdominal pain women, abdominal pain men, vaginal bleeding, musculoskeletal, weakness, fever, dyspnea, syncope, headache, dizziness, GI bleed, back pain, seizure, CVA, palpatations, mental health)? @ -not applicable EKG interpreted by me (3pts min.). @ -None done X-rays interpreted by me (1pt min.). @ -Bilateral hand x-rays are negative for acute processes CT interpreted by me (1pt min.). @ -None done U/S interpreted by me (1pt. min.). @ -None done What testing was considered but not performed or refused? (CT, X-rays, U/S, labs)? Why? @ -None What meds were considered but not given or refused? Why? @ -None Did you discuss the management of the patient with other professionals (professionals i.e. , PA, MONITORING SPECIALIST, lab, RT, psych nurse, social worker delinquency prevention, accounting file clerk, teacher, licensed loan officer assistant, pillowcase maker)? Give summary @ -No Was smoking cessation discussed for >3mins.? @ -No Was critical care preformed (if so, how long)? @ -No Were there social determinants of health that impacted care today? How? (Homelessness, low income, unemployed, alcoholism, drug addiction, transportation, low edu. Level, literacy, decrease access to med. care, [facility], rehab)? @ -No Was there de-escalation of care discussed even if they declined (Discuss DNR or withdrawal of care, Hospice)? DNR status @ -No What co-morbidities impacted this encounter? (DM, HTN, Smoking, COPD, CAD, Cancer, CVA, ARF, Chemo, Hep., AIDS, mental health diagnosis, sleep apnea, morbid obesity)? @ -Chronic upper extremity neuropathy Was patient admitted / discharged? Hospital course, mention meds given and route, prescriptions, significant lab abnormalities, going to OR and other pertinent info. @ -57-year-old female presents with acute on chronic neuropathy symptoms were bilateral upper extremities. Physical examination is benign. Vital signs are stable. Patient given a Percocet. Patient discharged told to follow-up with her neurologist. Undiagnosed new problem with uncertain prognosis? @ -No Drug Therapy requiring intensive monitoring for toxicity (Heparin, Nitro, Insulin, Cardizem)? @ -No Were any procedures done? @ -No Diagnosis/symptom? Acute, or Chronic, or Acute on Chronic? Uncomplicated (without systemic symptoms) or Complicated (systemic symptoms)? @ -Acute on chronic neuropathy Side effects of treatment? @ -No Exacerbation, Progression, or Severe Exacerbation? @ -No Poses a threat to life or bodily function? How? (Chest pain, [place], [place], pneumonia, PE, COPD, DKA, ARF, appy, cholecystitis, CVA, Diverticulitis, Homicidal, Suicidal, threat to staff... and all critical care pts) @ -No Disposition Clinical Impression: Neuropathy Disposition: HOME SELF-CARE Condition: Good Instructions (If sedation given, give patient instructions): Peripheral Neuropathy (ED) Is patient prescribed a controlled substance at d/c from ED?: No Referrals: Reina Naidu NPC [Primary Care Provider] - 1-2 days Time of Disposition: 15:30
[2023-04-07] MEDS ORDERED: oxyCODONE-APAP 10-325MG 1 EACH TAB PO STA (14:46)
[2023-04-07 15:05] VITALS: TEMP 98
--- NOTE | 2023-04-07 15:22 | XR ---
EXAMINATION TYPE: XR hand limited bilateral DATE OF EXAM: 04/07/2023 COMPARISON: None HISTORY: Pain TECHNIQUE: 2 views bilateral hands. FINDINGS: No acute fracture or dislocation is evident. Joint spaces are preserved. Soft tissues are n ormal. Left index finger ring could not be removed at this time. IMPRESSION: 1. No acute osseous abnormality bilateral hands
[2023-04-07] MEDS ORDERED: ACET/COD 300 MG/30 MG STARTER PACK 6 TAB BTL PO STA (15:29)
[2023-04-07 16:00] VITALS: BP 152/90; PULSE 71
== END 2023-04-07 16:00 | disposition home or self-care (01) ==
LOC: EC 13:41
DX: G62.9 Polyneuropathy, unspecified (principal); J44.9 Chronic obstructive pulmonary disease, unspecified; F17.200 Nicotine dependence, unspecified, uncomplicated; F12.90 Cannabis use, unspecified, uncomplicated; F14.90 Cocaine use, unspecified, uncomplicated; F15.90 Other stimulant use, unspecified, uncomplicated; Z86.59 Personal history of other mental and behavioral disorders; Z79.899 Other long term (current) drug therapy; Z88.8 Allergy status to other drugs, medicaments and biological substances; Z79.82 Long term (current) use of aspirin
CPT/HCPCS: 99283

== ENCOUNTER 2023-04-17 06:56 | Emergency (ER) | payer OTHER ==
[2023-04-17 07:22] VITALS: RESP 18
[2023-04-17] MEDS ORDERED: HYDROcodone/APAP 7.5-325MG 1 EACH TAB PO ONE (07:25)
--- NOTE | 2023-04-17 07:28 | ED ---
General Adult HPI - General Chief complaint: Extremity Problem,Nontraumatic Stated complaint: Painful Tingles in Hands Time Seen by Provider: 04/17/23 07:05 Source: patient, RN notes reviewed, old records reviewed Mode of arrival: ambulatory Limitations: no limitations - History of Present Illness Initial comments: 57-year-old female presenting with chronic bilateral hand pain. Patient has been seen by orthopedics she's been seen by clock and watch hands painter and neurology regarding this issue. She has braces for both hands. She has pain in the bilateral thumbs with numbness and tingling. No injury. No fever. No change in pain over the chronic level of pain. She is taking Lyrica, muscle relaxer, Tylenol, Cymbalta for this pain. She has an appointment with her pain specialist tomorrow. - Related Data Home Medications Medication Instructions Recorded Confirmed Aspirin EC [Ecotrin Low Dose] 81 mg PO DAILY PRN 05/29/19 12/19/21 Butalb/APAP/Caff 50-325-40Mg 1 tab PO Q8H PRN 01/25/21 12/19/21 [Fioricet 50-325-40] Cetirizine HCl [Zyrtec] 10 mg PO DAILY 01/25/21 12/19/21 Folic Acid 1 mg PO DAILY 01/25/21 12/19/21 Pregabalin [Lyrica] 150 mg PO TID 01/25/21 12/19/21 tiZANidine HCL 4 mg PO TID PRN 01/25/21 12/19/21 Acetaminophen Tab [Tylenol] 650 mg PO Q6H PRN 09/28/21 12/19/21 Previous Rx's Medication Instructions Recorded traZODone HCL [Desyrel] 50 mg PO HS #30 tab 12/21/21 Allergies Allergy/AdvReac Type Severity Reaction Status Date / Time ketorolac tromethamine Allergy Rash/Hives Verified 04/17/23 07:08 [From Toradol] tramadol HCl [From Ultram] Allergy Rash/Hives Verified 04/17/23 07:08 Review of Systems ROS Statement: Those systems with pertinent positive or pertinent negative responses have been documented in the HPI. ROS Other: All systems not noted in ROS Statement are negative. Past Medical History Past Medical History: COPD, Liver Disease Additional Past Medical History / Comment(s): , hepatitis C CHRONIC PAIN History of Any Multi-Drug Resistant Organisms: None Reported Past Surgical History: Section, Orthopedic Surgery, Uterine Ablation Additional Past Surgical History / Comment(s): surgery on left ankle, rt knee surgery, mary lou ovaries removed Past Anesthesia/Blood Transfusion Reactions: No Reported Reaction Past Psychological History: Anxiety, Bipolar, Depression Smoking Status: Current every day smoker, Vaper Past Alcohol Use History: Occasional Past Drug Use History: Cocaine, Heroin, Marijuana - Past Family History Mother Family Medical History: CVA/TIA Father History Unknown: Yes Additional Family Medical History / Comment(s): FATHER STILL ALIVE LIVES IN [place] General Exam Limitations: no limitations General appearance: alert, in no apparent distress Head exam: Present: atraumatic, normocephalic Eye exam: Present: normal appearance, PERRL ENT exam: Present: normal exam Neck exam: Present: normal inspection. Absent: tenderness Respiratory exam: Present: normal lung sounds bilaterally. Absent: respiratory distress, wheezes Cardiovascular Exam: Present: regular rate, normal rhythm GI/Abdominal exam: Present: soft. Absent: distended, tenderness, guarding Extremities exam: Present: other (Bilateral hands, there is no range of motion of all digits, no soft tissue swelling, no erythema, no external signs of trauma) Neurological exam: Present: alert, oriented X3, CN II-XII intact Skin exam: Present: warm, dry, intact Course Vital Signs 04/17/23 07:05 Temperature 97.9 F Pulse Rate 78 Respiratory 18 Rate Blood Pressure 134/75 O2 Sat by Pulse 98 Oximetry Medical Decision Making - Medical Decision Making Was pt. sent in by a medical professional or institution (Dr. PA, GUEST SERVICE HOST, urgent care, hospital, or care home...) When possible be specific @ -No Did you speak to anyone other than the patient for history (EMS, parent, family, police, friend...)? What history was obtained from this source @ -No Did you review nursing and triage notes (agree or disagree)? Why? @ -I reviewed and agree with nursing and triage notes Were old charts reviewed (outside hosp., previous admission, EMS record, old EKG, old radiological studies, urgent care reports/EKG's, care home records)? Report findings @ -No old charts were reviewed Differential Diagnosis (chest pain, altered mental status, abdominal pain women, abdominal pain men, vaginal bleeding, weakness, fever, dyspnea, syncope, headache, dizziness, GI bleed, back pain, seizure, CVA, palpatations, mental health, musculoskeletal)? @ -Differential Musculoskeletal Muscular strain, contusion, ligament sprain, fracture, arthritis, septic arthritis, bursitis, cellulitis, muscle spasm, nerve compression, DVT, arterial occlusion, herpes zoster, electrolyte abnormality, tumor.... This is not meant to be in all inclusive list EKG interpreted by me (3pts min.). @ -As above X-rays interpreted by me (1pt min.). @ -None done CT interpreted by me (1pt min.). @ -None done U/S interpreted by me (1pt. min.). @ -None done What testing was considered but not performed or refused? (CT, X-rays, U/S, labs)? Why? @ -None What meds were considered but not given or refused? Why? @ -None Did you discuss the management of the patient with other professionals (professionals i.e. , PA, GUEST SERVICE HOST, lab, RT, psych nurse, social media marketing specialist, corporation lawyer, teacher, medical officer, watch caser)? Give summary @ -No Was smoking cessation discussed for >3mins.? @ -No Was critical care preformed (if so, how long)? @ -No Were there social determinants of health that impacted care today? How? (Homelessness, low income, unemployed, alcoholism, drug addiction, transportation, low edu. Level, literacy, decrease access to med. care, nursing home, rehab)? @ -No Was there de-escalation of care discussed even if they declined (Discuss DNR or withdrawal of care, Hospice)? DNR status @ -No What co-morbidities impacted this encounter? (DM, HTN, Smoking, COPD, CAD, Cancer, CVA, ARF, Chemo, Hep., AIDS, mental health diagnosis, sleep apnea, morbid obesity)? @ -[Chronic pain Was patient admitted / discharged? Hospital course, mention meds given and route, prescriptions, significant lab abnormalities, going to OR and other pertinent info. @ -[Chronic pain with an appointment for pain specialist tomorrow. Patient stable for discharge Undiagnosed new problem with uncertain prognosis? @ -No Drug Therapy requiring intensive monitoring for toxicity (Heparin, Nitro, Insulin, Cardizem)? @ -No Were any procedures done? @ -No Diagnosis/symptom? @ Chronic bilateral hand pain Acute, or Chronic, or Acute on Chronic? @ -[Chronic Uncomplicated (without systemic symptoms) or Complicated (systemic symptoms)? @ -default Side effects of treatment? @ -No Exacerbation, Progression, or Severe Exacerbation? @ -No Poses a threat to life or bodily function? How? (Chest pain, [place], [place], pneumonia, PE, COPD, DKA, ARF, appy, cholecystitis, CVA, Diverticulitis, Homicidal, Suicidal, threat to staff... and all critical care pts) @ -No Disposition Clinical Impression: Chronic pain Disposition: HOME SELF-CARE Condition: Fair Instructions (If sedation given, give patient instructions): Chronic Pain (ED) Is patient prescribed a controlled substance at d/c from ED?: No Referrals: Nehemias Trujillo [Primary Care Provider] - 1-2 days Vira Orosco MD [Medical Doctor] - 1-2 days Time of Disposition: 07:28
[2023-04-17 08:11] VITALS: BP 132/71; PULSE 76; TEMP 98
== END 2023-04-17 08:06 | disposition home or self-care (01) ==
LOC: EC 06:56
DX: G89.29 Other chronic pain (principal); M79.642 Pain in left hand; J44.9 Chronic obstructive pulmonary disease, unspecified; F17.290 Nicotine dependence, other tobacco product, uncomplicated; F14.90 Cocaine use, unspecified, uncomplicated; F12.90 Cannabis use, unspecified, uncomplicated; F15.90 Other stimulant use, unspecified, uncomplicated; Z79.82 Long term (current) use of aspirin; Z79.899 Other long term (current) drug therapy; Z86.59 Personal history of other mental and behavioral disorders
CPT/HCPCS: 99283

== ENCOUNTER 2023-04-19 15:44 | Emergency (ER) | payer OTHER ==
[2023-04-19 16:28] VITALS: BP 135/64; PULSE 75; RESP 18; TEMP 98.3
--- NOTE | 2023-04-19 17:47 | ED ---
General Adult HPI - General Chief complaint: Extremity Injury, Upper Stated complaint: Hand pain Time Seen by Provider: 04/19/23 17:38 Source: patient, RN notes reviewed, old records reviewed Mode of arrival: ambulatory Limitations: no limitations - History of Present Illness Initial comments: 57 yo female presenting for evaluation of continued bilateral hand pain. The patient has had ongoing symptoms for some time. She was seen by her neurologist earlier this week. She states that the pain continues. She is requesting referral to pain management. - Related Data Home Medications Medication Instructions Recorded Confirmed Aspirin EC [Ecotrin Low Dose] 81 mg PO DAILY PRN 05/29/19 12/19/21 Butalb/APAP/Caff 50-325-40Mg 1 tab PO Q8H PRN 01/25/21 12/19/21 [Fioricet 50-325-40] Cetirizine HCl [Zyrtec] 10 mg PO DAILY 01/25/21 12/19/21 Folic Acid 1 mg PO DAILY 01/25/21 12/19/21 Pregabalin [Lyrica] 150 mg PO TID 01/25/21 12/19/21 tiZANidine HCL 4 mg PO TID PRN 01/25/21 12/19/21 Acetaminophen Tab [Tylenol] 650 mg PO Q6H PRN 09/28/21 12/19/21 Previous Rx's Medication Instructions Recorded traZODone HCL [Desyrel] 50 mg PO HS #30 tab 12/21/21 Allergies Allergy/AdvReac Type Severity Reaction Status Date / Time ketorolac tromethamine Allergy Rash/Hives Verified 04/19/23 16:14 [From Toradol] tramadol HCl [From Ultram] Allergy Rash/Hives Verified 04/19/23 16:14 Review of Systems ROS Statement: Those systems with pertinent positive or pertinent negative responses have been documented in the HPI. ROS Other: All systems not noted in ROS Statement are negative. Past Medical History Past Medical History: COPD, Liver Disease Additional Past Medical History / Comment(s): , hepatitis C CHRONIC PAIN History of Any Multi-Drug Resistant Organisms: None Reported Past Surgical History: Section, Orthopedic Surgery, Uterine Ablation Additional Past Surgical History / Comment(s): surgery on left ankle, rt knee surgery, mary lou ovaries removed Past Anesthesia/Blood Transfusion Reactions: No Reported Reaction Past Psychological History: Anxiety, Bipolar, Depression Smoking Status: Current every day smoker, Vaper Past Alcohol Use History: Occasional Past Drug Use History: Cocaine, Heroin, Marijuana - Past Family History Mother Family Medical History: CVA/TIA Father History Unknown: Yes Additional Family Medical History / Comment(s): FATHER STILL ALIVE LIVES IN [place] General Exam Limitations: no limitations General appearance: alert, in no apparent distress Head exam: Present: atraumatic, normocephalic Eye exam: Present: normal appearance, PERRL ENT exam: Present: normal exam Neck exam: Present: normal inspection. Absent: tenderness Respiratory exam: Present: normal lung sounds bilaterally. Absent: respiratory distress, wheezes Cardiovascular Exam: Present: regular rate, normal rhythm GI/Abdominal exam: Present: soft. Absent: distended, tenderness Extremities exam: Present: normal inspection, normal capillary refill, other (Distal pulses are intact, normal range of motion of bilateral hands.) Neurological exam: Present: alert, oriented X3, CN II-XII intact Psychiatric exam: Present: normal affect, normal mood Skin exam: Present: warm, dry, intact Course Vital Signs 04/19/23 16:12 Temperature 98.3 F Pulse Rate 75 Respiratory 18 Rate Blood Pressure 135/64 O2 Sat by Pulse 97 Oximetry Medical Decision Making - Medical Decision Making Was pt. sent in by a medical professional or institution (JU Fregoso, COUNTER STITCHER, urgent care, hospital, or custodial...) When possible be specific @ -No Did you speak to anyone other than the patient for history (EMS, parent, family, police, friend...)? What history was obtained from this source @ -No Did you review nursing and triage notes (agree or disagree)? Why? @ -I reviewed and agree with nursing and triage notes Were old charts reviewed (outside hosp., previous admission, EMS record, old EKG, old radiological studies, urgent care reports/EKG's, custodial records)? Report findings @ -No old charts were reviewed Differential Diagnosis (chest pain, altered mental status, abdominal pain women, abdominal pain men, vaginal bleeding, weakness, fever, dyspnea, syncope, headache, dizziness, GI bleed, back pain, seizure, CVA, palpatations, mental health, musculoskeletal)? @ Carpal tunnel, peripheral neuropathy, chronic pain EKG interpreted by me (3pts min.). @ -As above X-rays interpreted by me (1pt min.). @ -None done CT interpreted by me (1pt min.). @ -None done U/S interpreted by me (1pt. min.). @ -None done What testing was considered but not performed or refused? (CT, X-rays, U/S, labs)? Why? @ -None What meds were considered but not given or refused? Why? @ -None Did you discuss the management of the patient with other professionals (professionals i.e. , PA, COUNTER STITCHER, lab, RT, psych nurse, community mental health social worker, software integration developer, teacher, fire information officer, briefcase sewer)? Give summary @ -No Was smoking cessation discussed for >3mins.? @ -No Was critical care preformed (if so, how long)? @ -No Were there social determinants of health that impacted care today? How? (Homelessness, low income, unemployed, alcoholism, drug addiction, transportation, low edu. Level, literacy, decrease access to med. care, senior care, rehab)? @ -No Was there de-escalation of care discussed even if they declined (Discuss DNR or withdrawal of care, Hospice)? DNR status @ -No What co-morbidities impacted this encounter? (DM, HTN, Smoking, COPD, CAD, Cancer, CVA, ARF, Chemo, Hep., AIDS, mental health diagnosis, sleep apnea, morbi d obesity)? @ -None Was patient admitted / discharged? Hospital course, mention meds given and route, prescriptions, significant lab abnormalities, going to OR and other pertinent info. @ -57-year-old female with chronic bilateral hand pain. I do not identify an emergency at this time. Normal pulse exam, normal cap refill, no signs of inf ection, no recent trauma. Patient should continue to follow as an outpatient. Undiagnosed new problem with uncertain prognosis? @ -No Drug Therapy requiring intensive monitoring for toxicity (Heparin, Nitro, Insulin, Cardizem)? @ -No Were any procedures done? @ -No Diagnosis/symptom? @ -[Chronic hand pain Acute, or Chronic, or Acute on Chronic? @ -chronic Uncomplicated (without systemic symptoms) or Complicated (systemic symptoms)? @ -default Side effects of treatment? @ -No Exacerbation, Progression, or Severe Exacerbation? @ -No Poses a threat to life or bodily function? How? (Chest pain, [place], [place], pneumonia, PE, COPD, DKA, ARF, appy, cholecystitis, CVA, Diverticulitis, Homicidal, Suicidal, threat to staff... and all critical care pts) @ -No Disposition Clinical Impression: Chronic pain Disposition: HOME SELF-CARE Condition: Good Instructions (If sedation given, give patient instructions): Chronic Pain (ED) Is patient prescribed a controlled substance at d/c from ED?: No Referrals: Nehemias Trujillo [Primary Care Provider] - 1-2 days Danette Waldron MD [STAFF PHYSICIAN] - 1-2 days Time of Disposition: 17:47
== END 2023-04-19 18:22 | disposition home or self-care (01) ==
LOC: EC 15:44
DX: G89.29 Other chronic pain (principal); M79.641 Pain in right hand; M79.642 Pain in left hand; J44.9 Chronic obstructive pulmonary disease, unspecified; F41.9 Anxiety disorder, unspecified; F31.9 Bipolar disorder, unspecified; F17.290 Nicotine dependence, other tobacco product, uncomplicated; F12.90 Cannabis use, unspecified, uncomplicated; Z88.8 Allergy status to other drugs, medicaments and biological substances; Z79.82 Long term (current) use of aspirin; Z79.899 Other long term (current) drug therapy
CPT/HCPCS: 99283

== ENCOUNTER → 2023-07-18 | Outpatient (CLI) | payer OTHER ==
[2023-07-18 13:43] VITALS: BP 114/86; PULSE 111; RESP 15; TEMP 98.6
--- NOTE | 2023-07-18 15:01 | P.PAINPG ---
PQRS Measure Charge Sheet Comment: HISTORY OF PRESENT ILLNESS: A 57 yr old female as a referral from Reina BRICE presents today w severe and chronic R knee pain x 5 yrs secondary to DJD for evaluation. Pt states pain level is provoked at 8 /10 in intensity, constant, localized in the R knee, throbbing in character without shooting pain. Pain is provoked by weight bearing activity. Pain is alleviated by PT years ago, medications (Tyl #3), reclining, repositioning and rest. Per [facility], she has not been prescribed Tyl #3 in at least 2 yrs but per records from her PCP, she was given Lyrica, Cymbalta & Zanaflex of which pt denies being on . Discussed mechanisms of action and urged compliance. Pt states she is not driving and has a director of education and training in the lobby that is driving for her today. PMH: OA, COPD, Hep C, MDD/ Anxiety/ Borderline/ Bipolar Disorder PSH: , Section (1996), Partial R Knee Replacement (2018), Reat tached Foot to Leg (1999), R Knee Surgery (Scheduled Aug 07 2023), L Ankle Surgery, Uterine Ablation (2002), Exploratory Laparoscopy (2022) BL Cataract Extraction SH: Daily tobacco use, Occasional ETOH use, Hx of Cocaine/ Heroin use, Cannabis use FH: Mo- CVA. Fa- Unknown, Lives in [place]. All: See list Meds: See list REVIEW OF ORGAN SYSTEMS: CONSTITUTIONAL: No fevers or chills. No recent weight loss. NEUROLOGICAL: + numbness and tingling along the distal extremities. No seizure disorders or headaches. MUSCULOSKELETAL: + pain PSYCHIATRIC: Denies current depression or suicidal thoughts. Physical Examinations : Constitutional : Cooperative , NODDING OFF/ DOZING OFF DURING EXAM Neurologic : Cranial nerve II to XII intact. No focal neurological deficits. Psychiatric : alert & oriented x 3. Matching mood & appropriate affect. Judgment & insight intact. Musculoskeletal : Cervical Spine Motor strength in the deltoid and biceps: Normal right side. Normal Left side Motor strength biceps and the wrist extensors: Normal right side . Normal left side Motor strength in the triceps muscle: Normal right side. Normal left side Deep tendon reflexes: Normal at the biceps. Normal at Brachioradialis. Normal at triceps Vertebral body tenderness to deep palpation over Cervical facet loading test: positive bilaterally Spurling test: positive bilaterally Neck distraction test: positive bilaterally Anyi sign: positive bilaterally Lumbar spine +R Knee Brace Motor strength lower extremities ,thigh and legs 5/5 Right side , 5/5 Left side Deep tendon reflexes : Normal Knee Jerk. Normal Ankle Jerk Vertebral body tenderness over Wilkinson Test positive Lumbar facet Loading Test: positive Right / positive Left Range of motion of the lumbar spine Flexion 30 degrees, extension 10 degrees Straight Leg Raise test: Left/ Right positive at degrees Ladonna test: positive right / positive left. Severe tenderness over the Sacroiliac joint on the Right / Left sides Gaenslen test: positive bilaterally Seated flexion test: positive bilaterally. Sacral spine : Severe tenderness over the Sacroiliac joint: right side / left side Range of motion: Flexion of the lumbar spine <60 degrees Range of motion: Extension of the lumbar spine <20 degrees Gaenslen's Test positive Ladonna test: positive right side / left side Thigh Thrust Test Sacral Thrust Test Imaging: None on file Assessment/ Plan : R knee DJD w upcoming full knee replacement Will take Lyrica, Cymbalta and Zanaflex as prescribed and go forward with the R knee surgery on 08/04/23. All questions answered. I have spent greater than 30 minutes on patient care today. Dr Waldron was available by phone for the evaluation of this patient. The time was used to review the medical records including relevant urine studies and Prescription h istory ([facility]), review of the available imaging, evaluation and examination of the patient, coordination of care with the medical staff and if applicable referring physicians, as well as creation of the medical record - Pain Location Right Knee Non-Pharmacological Interventions: Inactivity, Position/Reposition Pharmacological Interventions: Scheduled Medication PQRS Narrative: Smoking Status Current every day smoker Narcotic Agreement Date Signed 09/14/15 Hx Alcohol Use (MH) No Home Medications: Ambulatory Orders Aspirin EC [Ecotrin Low Dose] 81 mg PO DAILY PRN 05/29/19 Butalb/APAP/Caff 50-325-40Mg [Fioricet 50-325-40] 1 tab PO Q8H PRN 01/25/21 Cetirizine HCl [Zyrtec] 10 mg PO DAILY 01/25/21 Folic Acid 1 mg PO DAILY 01/25/21 Pregabalin [Lyrica] 150 mg PO TID 01/25/21 tiZANidine HCL 4 mg PO TID PRN 01/25/21 Acetaminophen Tab [Tylenol] 650 mg PO Q6H PRN 09/28/21 traZODone HCL [Desyrel] 50 mg PO HS #30 tab 12/21/21 Controlled Substance Measures - Controlled Substance Measures Is patient prescribed a controlled substance at discharge?: No
== END ==
LOC: PNWHC3 13:12
PROVIDERS: ATTEND Anesthesiology
DX: G89.4 Chronic pain syndrome (principal); M17.10 Unilateral primary osteoarthritis, unspecified knee; J44.9 Chronic obstructive pulmonary disease, unspecified; F31.9 Bipolar disorder, unspecified; F41.9 Anxiety disorder, unspecified; F12.90 Cannabis use, unspecified, uncomplicated; F17.200 Nicotine dependence, unspecified, uncomplicated; Z86.19 Personal history of other infectious and parasitic diseases; Z79.82 Long term (current) use of aspirin; Z88.5 Allergy status to narcotic agent; Z88.8 Allergy status to other drugs, medicaments and biological substances
CPT/HCPCS: 99211

== ENCOUNTER 2023-09-21 16:49 | Emergency (ER) | payer OTHER ==
[2023-09-21 17:34] LABS: Glucose,Whole Blood 136 mg/dL (70-110)
[2023-09-21 17:36] VITALS: TEMP 97.7
--- NOTE | 2023-09-21 17:58 | ED ---
General Adult HPI - General Chief complaint: Dizziness Stated complaint: Dizziness Time Seen by Provider: 09/21/23 17:37 Source: patient, RN notes reviewed Mode of arrival: ambulatory Limitations: no limitations - History of Present Illness Initial comments: Patient is a pleasant 57-year-old female present to the emergency department with concerns for blood pressure. Patient states her blood pressure was low at physical therapy today as well. Patient states she was smoking crack yesterday and today and therefore has not ate much. Patient has taken her blood pressure medication, lisinopril 10 mg. Patient feels a little bit lightheaded. No chest pain or any other area of pain. No dyspnea. No isolated area of weakness nor confusion. No headache. - Related Data Home Medications Medication Instructions Recorded Confirmed Aspirin EC [Ecotrin Low Dose] 81 mg PO DAILY PRN 05/29/19 07/18/23 Butalb/APAP/Caff 50-325-40Mg 1 tab PO Q8H PRN 01/25/21 07/18/23 [Fioricet 50-325-40] Cetirizine HCl [Zyrtec] 10 mg PO DAILY 01/25/21 07/18/23 Folic Acid 1 mg PO DAILY 01/25/21 07/18/23 Pregabalin [Lyrica] 150 mg PO TID 01/25/21 07/18/23 tiZANidine HCL 4 mg PO TID PRN 01/25/21 07/18/23 Acetaminophen Tab [Tylenol] 650 mg PO Q6H PRN 09/28/21 07/18/23 Previous Rx's Medication Instructions Recorded traZODone HCL [Desyrel] 50 mg PO HS #30 tab 12/21/21 Allergies Allergy/AdvReac Type Severity Reaction Status Date / Time ketorolac tromethamine Allergy Rash/Hives Verified 09/21/23 17:35 [From Toradol] tramadol HCl [From Ultram] Allergy Rash/Hives Verified 09/21/23 17:35 Review of Systems ROS Statement: Those systems with pertinent positive or pertinent negative responses have been documented in the HPI. ROS Other: All systems not noted in ROS Statement are negative. Constitutional: Denies: fever Eyes: Denies: eye pain ENT: Denies: ear pain Respiratory: Denies: cough, dyspnea Cardiovascular: Denies: chest pain, palpitations Gastrointestinal: Denies: abdominal pain Musculoskeletal: Denies: back pain Neurological: Denies: headache, weakness, confusion Past Medical History Past Medical History: COPD, Liver Disease Additional Past Medical History / Comment(s): , hepatitis C CHRONIC PAIN History of Any Multi-Drug Resistant Organisms: None Reported Past Surgical History: Section, Orthopedic Surgery, Uterine Ablation Additional Past Surgical History / Comment(s): surgery on left ankle, rt knee surgery, mary lou ovaries removed Past Anesthesia/Blood Transfusion Reactions: No Reported Reaction Past Psychological History: Anxiety, Bipolar, Depression Smoking Status: Current every day smoker, Vaper - Past Family History Mother Family Medical History: CVA/TIA Father History Unknown: Yes Additional Family Medical History / Comment(s): FATHER STILL ALIVE LIVES IN [place] General Exam Limitations: no limitations General appearance: alert, in no apparent distress Head exam: Present: normocephalic Eye exam: Present: normal appearance, PERRL ENT exam: Present: normal oropharynx Neck exam: Present: normal inspection. Absent: tenderness, meningismus Respiratory exam: Present: normal lung sounds bilaterally Cardiovascular Exam: Present: regular rate, normal rhythm GI/Abdominal exam: Present: soft. Absent: tenderness, pulsatile mass Extremities exam: Present: normal inspection. Absent: pedal edema, calf tenderness Neurological exam: Present: alert, oriented X3, CN II-XII intact. Absent: motor sensory deficit Expanded Neurological exam: Present: protecting the airway Speech: Present: fluid speech Motor strength exam: RUE: 5, LUE: 5, RLE: 5, LLE: 5 Eye Response: (4) open spontaneously Motor Response: (6) obeys commands Verbal Response: (5) oriented Psychiatric exam: Present: normal affect, normal mood Skin exam: Present: normal color Course Vital Signs 09/21/23 17:27 Temperature 97.7 F Pulse Rate 64 Respiratory 20 Rate Blood Pressure 85/61 O2 Sat by Pulse 100 Oximetry EKG Findings - EKG Results: EKG: interpreted by ERMD (Biphasic T wave in V3), sinus rhythm, normal axis, normal QRS EKG shows: bradycardia Medical Decision Making - Medical Decision Making Multiple previous EKGs reviewed. EKG dated 12/19/2021 does have a biphasic T wave in V3 as well. There are several EKGs with inverted T wave in V3. Was pt. sent in by a medical professional or institution (Dr., PA, MACHINE HAND, urgent care, hospital, or intermediate...) When possible be specific @ -Patient was advised to come in by the office Did you speak to anyone other than the patient for history (EMS, parent, family, police, friend...)? What history was obtained from this source @ -[No] Did you review nursing and triage notes (agree or disagree)? Why? @ -[I reviewed and agree with nursing and triage notes] Were old charts reviewed (outside hosp., previous admission, EMS record, old EKG, old radiological studies, urgent care reports/EKG's, intermediate records)? Report findings @ -[No old charts were reviewed] Differential Diagnosis (chest pain, altered mental status, abdominal pain women, abdominal pain men, vaginal bleeding, weakness, fever, dyspnea, syncope, headache, dizziness, GI bleed, back pain, seizure, CVA, palpatations, mental health, musculoskeletal)? @ -Differential Dizziness: Benign paroxysmal positional Vertigo, Menieres disease, otitis media, acoustic neuroma, vertebrobasilar insufficiency, cerebellar stroke, encephalitis, hypovolemic, arrhythmia, coronary artery syndrome, anemia, this is not meant to be an all-inclusive list EKG interpreted by me (3pts min.). @ -[As above] X-rays interpreted by me (1pt min.). @ -X-ray shows no acute process CT interpreted by me (1pt min.). @ -[None done] U/S interpreted by me (1pt. min.). @ -[None done] What testing was considered but not performed or refused? (CT, X-rays, U/S, labs)? Why? @ -[None] What meds were considered but not given or refused? Why? @ -[None] Did you discuss the management of the patient with other professionals (pr ofessionals i.e. JU Fregoso, MACHINE HAND, lab, RT, psych nurse, oncology social work, extrusion die corrector, teacher, professional security officer, medical case manager)? Give summary @ -[No] Was smoking cessation discussed for >3mins.? @ -[No] Was critical care preformed (if so, how long)? @ -[No] Were there social determinants of health that impacted care today? How? (Homelessness, low income, unemployed, alcoholism, drug addiction, transportation, low edu. Level, literacy, decrease access to med. care, nursing home, rehab)? @ -[No] Was there de-escalation of care discussed even if they declined (Discuss DNR or withdrawal of care, Hospice)? DNR status @ -Patient advised admission. Patient is made aware that blood pressure was very low when she got here and if it drops again there could be serious potential problems including passing out or worse. Patient does demonstrate medical decision-making and is willing to take risks involved. What co-morbidities impacted this encounter? (DM, HTN, Smoking, COPD, CAD, Cancer, CVA, ARF, Chemo, Hep., AIDS, mental health diagnosis, sleep apnea, morbid obesity)? @ -[None] Was patient admitted / discharged? Hospital course, mention meds given and route, prescriptions, significant lab abnormalities, going to OR and other pertinent info. @ -Patient reevaluated and feeling much better following fluids. Blood pressure improved. Patient is updated on results. Patient refuses Undiagnosed new problem with uncertain prognosis? @ -[No] Drug Therapy requiring intensive monitoring for toxicity (Heparin, Nitro, Insulin, Cardizem)? @ -[No] Were any procedures done? @ -[No] Diagnosis/symptom? @ -Hypotensive episode Acute, or Chronic, or Acute on Chronic? @ -Acute Uncomplicated (without systemic symptoms) or Complicated (systemic symptoms)? @ -[default] Side effects of treatment? @ -[No] Exacerbation, Progression, or Severe Exacerbation? @ -[No] Poses a threat to life or bodily function? How? (Chest pain, USA, AL, pneumonia, PE, COPD, DKA, ARF, appy, cholecystitis, CVA, Diverticulitis, Homicidal, Suicidal, threat to staff... and all critical care pts) @ -Potential for hypoperfusion to organs and syncope. - Lab Data Result diagrams: 09/21/23 18:19 09/21/23 18:19 Lab Results 09/21/23 09/21/23 09/21/23 Range/Units 17:33 18:19 18:19 WBC 11.3 H (3.8-10.6) k/uL RBC 4.09 (3.80-5.40) m/uL Hgb 11.1 L (11.4-16.0) gm/dL Hct 35.4 (34.0-46.0) % MCV 86.6 (80.0-100.0) fL MCH 27.2 (25.0-35.0) pg MCHC 31.4 (31.0-37.0) g/dL RDW 13.1 (11.5-15.5) % Plt Count 248 (150-450) k/uL MPV 8.0 Neutrophils % 67 % Lymphocytes % 23 % Monocytes % 6 % Eosinophils % 1 % Basophils % 0 % Neutrophils # 7.6 (1.3-7.7) k/uL Lymphocytes # 2.6 (1.0-4.8) k/uL Monocytes # 0.7 (0-1.0) k/uL Eosinophils # 0.1 (0-0.7) k/uL Basophils # 0.1 (0-0.2) k/uL PT 10.5 (10.0-12.5) sec INR 0.9 (<1.2) APTT 28.0 (22.0-30.0) sec Sodium (137-145) mmol/L Potassium (3.5-5.1) mmol/L Chloride (98-107) mmol/L Carbon Dioxide (22-30) mmol/L Anion Gap mmol/L BUN (7-17) mg/dL Creatinine (0.52-1.04) mg/dL Est GFR (CKD-EPI)AfAm (>60 ml/min/1.73 sqM) Est GFR (CKD-EPI)NonAf (>60 ml/min/1.73 sqM) Glucose (74-99) mg/dL POC Glucose (mg/dL) 136 H (70-110) mg/dL POC Glu Rehabilitation Program Coordinator ID Manjula Carranza Plasma Lactic Acid Tim (0.7-2.0) mmol/L Calcium (8.4-10.2) mg/dL Magnesium (1.6-2.3) mg/dL Total Bilirubin (0.2-1.3) mg/dL AST (14-36) U/L ALT (4-34) U/L Alkaline Phosphatase (38-126) U/L Troponin I (0.000-0.034) ng/mL Total Protein (6.3-8.2) g/dL Albumin (3.5-5.0) g/dL TSH (0.465-4.680) mIU/L Free T4 (0.78-2.19) ng/dL Free T3 pg/mL (2.8-5.3) pg/ml 09/21/23 09/21/23 09/21/23 Range/Units 18:19 18:19 18:19 WBC (3.8-10.6) k/uL RBC (3.80-5.40) m/uL Hgb (11.4-16.0) gm/dL Hct (34.0-46.0) % MCV (80.0-100.0) fL MCH (25.0-35.0) pg MCHC (31.0-37.0) g/dL RDW (11.5-15.5) % Plt Count (150-450) k/uL MPV Neutrophils % % Lymphocytes % % Monocytes % % Eosinophils % % Basophils % % Neutrophils # (1.3-7.7) k/uL Lymphocytes # (1.0-4.8) k/uL Monocytes # (0-1.0) k/uL Eosinophils # (0-0.7) k/uL Basophils # (0-0.2) k/uL PT (10.0-12.5) sec INR (<1.2) APTT (22.0-30.0) sec Sodium 137 (137-145) mmol/L Potassium 3.5 (3.5-5.1) mmol/L Chloride 101 (98-107) mmol/L Carbon Dioxide 28 (22-30) mmol/L Anion Gap 8 mmol/L BUN 13 (7-17) mg/dL Creatinine 1.57 H (0.52-1.04) mg/dL Est GFR (CKD-EPI)AfAm 42 (>60 ml/min/1.73 sqM) Est GFR (CKD-EPI)NonAf 37 (>60 ml/min/1.73 sqM) Glucose 78 (74-99) mg/dL POC Glucose (mg/dL) (70-110) mg/dL POC Glu Rehabilitation Program Coordinator ID Plasma Lactic Acid Tim 1.1 (0.7-2.0) mmol/L Calcium 9.1 (8.4-10.2) mg/dL Magnesium 2.1 (1.6-2.3) mg/dL Total Bilirubin 0.3 (0.2-1.3) mg/dL AST 20 (14-36) U/L ALT 11 (4-34) U/L Alkaline Phosphatase 68 (38-126) U/L Troponin I <0.012 (0.000-0.034) ng/mL Total Protein 7.5 (6.3-8.2) g/dL Albumin 4.4 (3.5-5.0) g/dL TSH 1.430 (0.465-4.680) mIU/L Free T4 1.17 (0.78-2.19) ng/dL Free T3 pg/mL 4.0 (2.8-5.3) pg/ml Disposition Clinical Impression: Hypotensive episode Disposition: LEFT AGAINST MEDICAL ADVICE Instructions (If sedation given, give patient instructions): Hypotension (ED) Additional Instructions: Stop taking your blood pressure medication until follow-up with primary care physician and discuss it at that time. Please do follow-up with your primary care physician in the next 1 or 2 days for recheck. Stop using crack. Please c ontinue to eat and drink like normal. Return for lightheadedness, weakness, dizziness, low blood pressure, worsening or changing symptoms or any other concerns. Is patient prescribed a controlled substance at d/c from ED?: No Referrals: Reina Naidu [facility] [REFERRING] - 1-2 days Time of Disposition: 19:59
[2023-09-21] MEDS: SODIUM CHLORIDE 0.9% 1,000 ML IV STA (18:20)
[2023-09-21 18:33] LABS: Basophils # (A) 0.1 k/uL (0-0.2); Basophils % (A) 0 %; Eosinophils # (A) 0.1 k/uL (0-0.7); Eosinophils % (A) 1 %; HCT 35.4 % (34.0-46.0); HGB 11.1 gm/dL (11.4-16.0); Lymphocytes # (A) 2.6 k/uL (1.0-4.8); Lymphocytes % (A) 23 %; MCH 27.2 pg (25.0-35.0); MCHC 31.4 g/dL (31.0-37.0); MCV 86.6 fL (80.0-100.0); Monocytes # (A) 0.7 k/uL (0-1.0); Monocytes % (A) 6 %; Neutrophils # (A) 7.6 k/uL (1.3-7.7); Neutrophils % (A) 67 %; Platelet Count 248 k/uL (150-450); RBC 4.09 m/uL (3.80-5.40); RDW 13.1 % (11.5-15.5); WBC 11.3 k/uL (3.8-10.6)
[2023-09-21 18:40] LABS: INR 0.9 (<1.2); Prothrombin Time 10.5 sec (10.0-12.5)
[2023-09-21 18:44] LABS: ALT 11 U/L (4-34); AST 20 U/L (14-36); African American GFR (CKD) 42 (>60 ml/min/1.73 sqM); Albumin 4.4 g/dL (3.5-5.0); Alkaline Phosphatase 68 U/L (38-126); Anion Gap 8 mmol/L; Blood Urea Nitrogen 13 mg/dL (7-17); Calcium 9.1 mg/dL (8.4-10.2); Carbon Dioxide 28 mmol/L (22-30); Chloride 101 mmol/L (98-107); Glucose 78 mg/dL (74-99); Magnesium 2.1 mg/dL (1.6-2.3); Non-African American GFR(CKD) 37 (>60 ml/min/1.73 sqM); Potassium 3.5 mmol/L (3.5-5.1); Sodium 137 mmol/L (137-145); Total Bilirubin 0.3 mg/dL (0.2-1.3); Total Protein 7.5 g/dL (6.3-8.2)
[2023-09-21 19:18] LABS: T4, Free (Free Thyroxine) 1.17 ng/dL (0.78-2.19)
--- NOTE | 2023-09-21 19:48 | XR ---
EXAMINATION TYPE: XR chest 2V DATE OF EXAM: 09/21/2023 6:59 PM CLINICAL INDICATION:Female, 57 years old with history of Weakness; [facility] COMPARISON: 12/20/2021 and before TECHNIQUE: XR chest 2V. Frontal and lateral views of the chest.. FINDINGS: Lines/Tubes/Devices: No indwelling lines are seen. Heart/mediastinum: Heart size is normal. Mediastinum appears normal. Pulmonary vascularity: Not increased, Lungs/Pleura: There is no evidence of pleural effusion, focal consolidation, or pneumothorax. Musculoskeletal: No acute osseous abnormality demonstrated in the limits of the exam. Other findings: None. IMPRESSION: No acute cardiopulmonary abnormality.
[2023-09-21 20:37] VITALS: BP 114/81; PULSE 79; RESP 18
== END 2023-09-21 20:26 | disposition left against medical advice (07) ==
LOC: EC 16:49
DX: I95.9 Hypotension, unspecified (principal); R00.1 Bradycardia, unspecified; F17.290 Nicotine dependence, other tobacco product, uncomplicated; Z53.29 Procedure and treatment not carried out because of patient's decision for other reasons; Z88.8 Allergy status to other drugs, medicaments and biological substances; Z88.5 Allergy status to narcotic agent
CPT/HCPCS: 36415; 71046; 80053; 83605; 83735; 84439; 84443; 84481; 84484; 85025; 85610; 85730; 93005; 96360; 99284

== ENCOUNTER → 2024-07-13 | Outpatient (CLI) | payer OTHER ==
--- NOTE | 2024-07-13 13:07 | MR ---
INDICATION: Patient age:Female; 58 years old; Reason for study: M50.20 Cervical herniation; M51.26 herniated disc; [facility]. COMPARISON: MR brain/cervical spine 04/25/2016, cervical spine radiograph 03/31/2016, CT cervical spi ne 06/12/2015. TECHNIQUE: Multi planar, multi sequence imaging was performed of the cervical spine. No Gadolinium wa s given. FINDINGS: Alignment: The cervical vertebral bodies have preserved heights. Alignment is within normal limits gi randall patient positioning. Bones: Bone signal is within normal limits. Cord: The spinal cord is unremarkable with regards to their signal intensity and morphology. No abnor mal STIR signal identified. Discs: Multilevel disc desiccation is present. C2-C3: No significant disc pathology. The spinal canal is patent. No neural foraminal stenosis. C3-C4: Central disc protrusion with mild effacement of the anterior thecal sac. Increase from prior e xam. There is no abutment of the spinal cord. No neural foraminal stenosis. C4-C5: Central disc protrusion with mild effacement of the anterior thecal sac. New from prior exam. There is no abutment of the spinal cord. No neural foraminal stenosis. C5-C6: Left paracentral disc protrusion redemonstrated. Similar from prior exam. There is mild efface ment of the anterolateral thecal sac. No abutment of the spinal cord. No neural foraminal stenosis. C6-C7: Central disc protrusion with minimal effacement of the anterior thecal sac. Similar from prior exam. No abutment of the spinal cord. No neural foraminal stenosis. C7-T1: No significant disc pathology. The spinal canal is patent. No neural foraminal stenosis. Other: None. IMPRESSION: Multilevel C3-C7 disc protrusions. The C4-C5 disc protrusion is new from prior exam. Increased size o f the C3-C4 disc protrusion. The remaining disc protrusions are relatively stable from prior MRI. No evidence of significant central canal or neural foraminal stenosis. [facility], , 07/13/2024 1:04 PM
== END | disposition home or self-care (01) ==
LOC: RADMRIMAIN 11:56
PROVIDERS: ATTEND Psychiatry & Neurology Neurology
DX: M50.221 Other cervical disc displacement at C4-C5 level (principal); M51.26 Other intervertebral disc displacement, lumbar region
CPT/HCPCS: 72141

== ENCOUNTER → 2024-08-11 | Outpatient (CLI) | payer OTHER ==
[2024-08-11 09:12] VITALS: BP 132/87; PULSE 95; RESP 15; TEMP 98.8
--- NOTE | 2024-08-11 15:28 | P.PAINPG ---
PQRS Measure Charge Sheet Comment: HISTORY OF PRESENT ILLNESS: A 57 yr old female as a referral from Reina Naidu [facility] presents today w severe and chronic thoracolumbar pain x 5 yrs secondary to radiculopathy, spondylosis and facet arthropathy without myelopathy for evaluation. Pt states pain level is provoked at 7 /10 in intensity, constant, predominantly axial, throbbing in character without shooting pain. Pain is provoked by weight bearing activity. Pain is alleviated by PT years ago, physician guided exercises every other day since [id number], medications , Cannabis, topical, reclining, repositioning and rest. PMH: OA, COPD, Hep C, MDD/ Anxiety/ Borderline/ Bipolar Disorder PSH: , Section (1996), Partial R Knee Replacement (2018), Reattached Foot to Leg (1999), R Knee Surgery (Scheduled Aug 07 2023), L Ankle Surgery, Uterine Ablation (2002), Exploratory Laparoscopy (2022) BL Cataract Extraction SH: Daily tobacco use, Occasional ETOH use, Hx of Cocaine/ Heroin use, Cannabis use FH: Mo- CVA. Fa- Unknown, Lives in [place]. All: See list Meds: See list incl Lyrica 150mg #90, Zanaflex REVIEW OF ORGAN SYSTEMS: CONSTITUTIONAL: No fevers or chills. No recent weight loss. NEUROLOGICAL: + numbness and tingling along the distal extremities. No seizure disorders or headaches. MUSCULOSKELETAL: + pain PSYCHIATRIC: Denies current depression or suicidal thoughts. Physical Examinations : Constitutional : Cooperative, AO x3 Neurologic : Cranial nerve II to XII intact. No focal neurological deficits. Psychiatric : alert & oriented x 3. Matching mood & appropriate affect. Judgment & insight intact. Musculoskeletal : Cervical Spine Motor strength in the deltoid and biceps: Normal right side. Normal Left side Motor strength biceps and the wrist extensors: Normal right side . Normal left side Motor strength in the triceps muscle: Normal right side. Normal left side Deep tendon reflexes: Normal at the biceps. Normal at Brachioradialis. Normal at triceps Vertebral body tenderness to deep palpation over Cervical facet loading test: positive bilaterally Spurling test: positive bilaterally Neck distraction test: positive bilaterally Anyi sign: positive bilaterally Lumbar spine Motor strength lower extremities ,thigh and legs 5/5 Right side , 5/5 Left side Deep tendon reflexes : Normal Knee Jerk. Normal Ankle Jerk Vertebral body tenderness over Wilkinson Test positive Lumbar facet Loading Test: positive Right / positive Left Range of motion of the lumbar spine Flexion 30 degrees, extension 10 degrees Straight Leg Raise test: Left/ Right positive at degrees Ladonna test: positive right / positive left. Taut bands w twitch response over T8-S1 BL Severe tenderness over the Sacroiliac joint on the Right / Left sides Gaenslen test: positive bilaterally Seated flexion test: positive bilaterally. Sacral spine : Severe tenderness over the Sacroiliac joint: right side / left side Range of motion: Flexion of the lumbar spine <60 degrees Range of motion: Extension of the lumbar spine <20 degrees Gaenslen's Test positive Ladonna test: positive right side / left side Thigh Thrust Test Sacral Thrust Test Imaging: MRI non contrast cervical spine from 07/13/24 reviewed Assessment/ Plan : C3-C7 radiculopathy, Thoracolumbar radiculopathy Recommendation of BL TPIs T8-S1 #1. Risks, benefits of procedure discussed and patient verbalized understanding. All questions answered. I have spent greater than 30 minutes on patient care today. Dr Waldron was available by phone for the evaluation of this patient. The time was used to review the medical records including relevant urine studies and Prescription history (MAPs), review of the available imaging, evaluation and examination of the patient, coordination of care with the medical staff and if applicable referring physicians, as well as creation of the medical record PQRS Narrative: Smoking Status Current every day smoker Narcotic Agreement Date Signed 07/18/23 Hx Alcohol Use (MH) No Home Medications: Ambulatory Orders Aspirin EC [Ecotrin Low Dose] 81 mg PO DAILY PRN 05/29/19 Butalb/APAP/Caff 50-325-40Mg [Fioricet 50-325-40] 1 tab PO Q8H PRN 01/25/21 Cetirizine HCl [Zyrtec] 10 mg PO DAILY 01/25/21 Folic Acid 1 mg PO DAILY 01/25/21 Pregabalin [Lyrica] 150 mg PO TID 01/25/21 tiZANidine HCL 4 mg PO TID PRN 01/25/21 Acetaminophen Tab [Tylenol] 650 mg PO Q6H PRN 09/28/21 traZODone HCL [Desyrel] 50 mg PO HS #30 tab 12/21/21 Controlled Substance Measures - Controlled Substance Measures Is patient prescribed a controlled substance at discharge?: No
== END ==
LOC: PNWHC3 08:43
PROVIDERS: ATTEND Specialist
DX: M54.12 Radiculopathy, cervical region (principal); M54.15 Radiculopathy, thoracolumbar region; F17.210 Nicotine dependence, cigarettes, uncomplicated; F12.90 Cannabis use, unspecified, uncomplicated; Z88.8 Allergy status to other drugs, medicaments and biological substances; Z88.5 Allergy status to narcotic agent
CPT/HCPCS: G0463 ×2; 99202; 99212

== ENCOUNTER → 2024-11-27 | Outpatient (CLI) | payer OTHER ==
[2024-11-27 14:01] VITALS: BP 135/85; PULSE 93; RESP 16
--- NOTE | 2024-11-27 16:23 | P.PAINPG ---
Objective - Vital Signs Vital signs: Vital Signs Temp Pulse 93 11/27/24 13:52 Resp 16 11/27/24 13:52 BP 135/85 11/27/24 13:52 Pulse Ox 96 11/27/24 13:52 FiO2 Intake & Output 11/26/24 11/27/24 11/27/24 18:59 06:59 18:59 Weight 65.771 kg PQRS Measure Charge Sheet Mode of Arrival: Ambulatory Comment: HISTORY OF PRESENT ILLNESS: A 59 yr old female presents today w severe and chronic thoracolumbar pain x 5 yrs secondary to radiculopathy, spondylosis and facet arthropathy without myelopathy for evaluation. Pt states pain level is provoked at 7 /10 in intensity, constant, predominantly axial, throbbing in character without shooting pain. Pain is provoked by weight bearing activity. Pain is alleviated by PT years ago, physician guided exercises every other day since Fall 2023, medications , Cannabis, topical, reclining, repositioning and rest. 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 No recent weight loss. NEUROLOGICAL: + numbness and tingling along the distal extremities. No seizure disorders or headaches. MUSCULOSKELETAL: + pain PSYCHIATRIC: Denies current depression or suicidal thoughts. Physical Examinations : Constitutional : Cooperative, AO x3 Neurologic : Cranial nerve II to XII intact. No focal neurological deficits. Psychiatric : alert & oriented x 3. Matching mood & appropriate affect. Judgment & insight intact. Musculoskeletal : Cervical Spine Motor strength in the deltoid and biceps: Normal right side. Normal Left side Motor strength biceps and the wrist extensors: Normal right side . Normal left side Motor strength in the triceps muscle: Normal right side. Normal left side Deep tendon reflexes: Normal at the biceps. Normal at Brachioradialis. Normal at triceps Vertebral body tenderness to deep palpation over C6 Cervical facet loading test: positive bilaterally Spurling test: positive bilaterally Neck distraction test: positive BL C6- C7 Anyi sign: positive bilaterally Lumbar spine Motor strength lower extremities ,thigh and legs 5/5 Right side , 5/5 Left side Deep tendon reflexes : Normal Knee Jerk. Normal Ankle Jerk Vertebral body tenderness over Wilkinson Test positive Lumbar facet Loading Test: positive Right / positive Left Range of motion of the lumbar spine Flexion 30 degrees, extension 10 degrees Straight Leg Raise test: Left/ Right positive at degrees Ladonna test: positive right / positive left. Taut bands w twitch response over T8-S1 BL Severe tenderness over the Sacroiliac joint on the Right / Left sides Gaenslen test: positive bilaterally Seated flexion test: positive bilaterally. Sacral spine : Severe tenderness over the Sacroiliac joint: right side / left side Range of motion: Flexion of the lumbar spine <60 degrees Range of motion: Extension of the lumbar spine <20 degrees Gaenslen's Test positive Ladonna test: positive right side / left side Thigh Thrust Test Sacral Thrust Test Imaging: MRI non contrast cervical spine from 07/13/24 reviewed Assessment/ Plan : C3-C7 radiculopathy, Thoracolumbar radiculopathy Recommendation of AYE C6-C7 #1. Risks, benefits of procedure discussed and patient verbalized understanding. All questions answered. I have spent greater than 30 minutes on patient care today. Dr Waldron was available by phone for the evaluation of this patient. The time was used to review the medical records including relevant urine studies and Prescription history (MAPs), review of the available imaging, evaluation and examination of the patient, coordination of care with the medical staff and if applicable referring physicians, as well as creation of the medical record - Pain Location Bilateral Lower Neck Non-Pharmacological Interventions: Heat, Ice, Inactivity, Physical Therapy, Position/Reposition, TENS Unit Pharmacological Interventions: PRN Medication PQRS Narrative: Smoking Status Current every day smoker Narcotic Agreement Date Signed 07/18/23 Blood Pressure 135/85 Pain Intensity [Bilateral 10 Lower Neck] Scale Used Numeric (1 - 10) Hx Alcohol Use (MH) No Home Medications: Ambulatory Orders Aspirin EC [Ecotrin Low Dose] 81 mg PO DAILY PRN 05/29/19 Butalb/APAP/Caff 50-325-40Mg [Fioricet 50-325-40] 1 tab PO Q8H PRN 01/25/21 Cetirizine HCl [Zyrtec] 10 mg PO DAILY 01/25/21 Folic Acid 1 mg PO DAILY 01/25/21 Pregabalin [Lyrica] 150 mg PO TID 01/25/21 tiZANidine HCL 4 mg PO TID PRN 01/25/21 Acetaminophen Tab [Tylenol] 650 mg PO Q6H PRN 09/28/21 traZODone HCL [Desyrel] 50 mg PO HS #30 tab 12/21/21 Controlled Substance Measures - Controlled Substance Measures Is patient prescribed a controlled substance at discharge?: No
== END ==
LOC: PNWHC3 13:45
PROVIDERS: ATTEND Specialist
DX: M47.22 Other spondylosis with radiculopathy, cervical region (principal); M47.25 Other spondylosis with radiculopathy, thoracolumbar region; F17.200 Nicotine dependence, unspecified, uncomplicated; F12.90 Cannabis use, unspecified, uncomplicated; Z88.1 Allergy status to other antibiotic agents; Z88.6 Allergy status to analgesic agent
CPT/HCPCS: 99211

== ENCOUNTER → 2024-12-23 | Outpatient (CLI) | payer OTHER ==
--- NOTE | 2024-12-24 15:47 | MR ---
INDICATION: Patient age:Female; 59 years old; Reason for study: M51.26 OTHER INTERVERTEBRAL DISC DISPLACEMENT, LUM; PHH. COMPARISONS: Lumbar spine radiograph 06/28/2015, CT abdomen and pelvis 04/16/2015 TECHNIQUE: Multi planar, multi sequence imaging was performed utilizing: T1-weighted, T2-weighted, a nd turbo inversion recovery imaging of the lumbar spine. The patient was not given contrast. FINDINGS: The lumbar vertebral bodies do have preserved heights. Minimal grade 1 anterolisthesis of L3 on L4. Type I Modic changes involving the superior endplate of the L4 vertebral body anteriorly. M ild disc desiccation at L3-L4 and L4-L5. The conus medullaris and the distal spinal cord do appear u nremarkable with regards to their signal intensity and morphology. L1-L2: No significant disc pathology is identified. The spinal canal and neural foramen are patent. L2-L3: No significant disc pathology is identified. The spinal canal and neural foramen are patent. L3-L4: Broad-based disc bulge with bilateral facet arthropathy. No significant spinal canal stenosis . Mild bilateral neural foraminal stenosis. L4-L5: Mild broad-based disc bulge. No significant spinal canal stenosis. Bilateral facet arthropathy with left greater than right. The right neural foramen is patent. Moderate left neural foraminal cherie nosis. L5-S1: No significant disc pathology is identified. The spinal canal and neural foramen are patent Other significant findings: Right renal subcentimeter T2 hyperintense cyst. No follow-up recommended. . IMPRESSION: 1. No definitive evidence for disc herniation or significant spinal canal stenosis. 2. Mild disc degeneration with associated osteoarthritic changes at L3-L4 and L4-L5 as described abo ve. 3. Minimal grade 1 anterolisthesis of L3 on L4. [facility], , 12/24/2024 3:44 PM
== END | disposition home or self-care (01) ==
LOC: RADMRIMAIN 16:57
PROVIDERS: ATTEND Psychiatry & Neurology Neurology
DX: M51.26 Other intervertebral disc displacement, lumbar region (principal); M51.369 Other intervertebral disc degeneration, lumbar region without mention of lumbar back pain or lower extremity pain; M43.16 Spondylolisthesis, lumbar region
CPT/HCPCS: 72148